=== PATIENT | female | born 1940 | race Caucasian/White ===

== ENCOUNTER 2018-03-27 02:03 | Emergency (ER) | payer OTHER ==
[2018-03-27] MEDS ORDERED: NA CHLORIDE 0.9% 1,000 ML ONE ×2 (02:41→02:42)
[2018-03-27] MEDS ORDERED: ASPIRIN EC 81 MG TAB PO ONE ×2 (02:41→02:55)
--- NOTE | 2018-03-27 02:53 | EDPHYS ---
Physician Documentation [facility] Name: Jeanne Richter Age: 77 yrs Sex: Female : 1940 Arrival Date: 03/27/2018 Time: 02:04 Bed 8 Private MD: ED Physician Noble Vega HPI: 03/27 02:48 This 77 yrs old Female presents to ER via Ambulatory with complaints of Chest michela Pain. 02:48 The patient or guardian reports chest pain that is located primarily in the substernal michela area, anterior chest wall. Onset: 2 day(s) ago. The pain radiates to chest. Associated signs and symptoms: The patient has no apparent associated signs or symptoms. The chest pain is described as a heaviness, causing indigestion, a pressure. Modifying factors: The symptoms are alleviated by nothing. the symptoms are aggravated by nothing. Severity of pain: At its worst the pain was mild moderate in the emergency department the pain is unchanged. The patient has not experienced similar symptoms in the past. Historical: - Allergies: 02:10 No Known Allergies; bp - Home Meds: 02:10 Synthroid Oral [Active]; Prilosec Oral [Active]; Celebrex Oral [Active]; Colace oral bp oral [Active]; - PMHx: 02:10 Hypothyroidism; bp - Immunization history:: Adult Immunizations up to date. - Social history:: Smoking status: . - Ebola Screening: : Patient negative for fever greater than or equal to 101.5 degrees Fahrenheit, and additional compatible Ebola Virus Disease symptoms Patient denies exposure to infectious person Patient denies travel to an Ebola-affected area in the 21 days before illness onset No symptoms or risks identified at this time. ROS: 02:48 Constitutional: Negative for fever, chills, and weight loss, Eyes: Negative for injury, michela pain, redness, and discharge, ENT: Negative for injury, pain, and discharge, Neck: Negative for injury, pain, and swelling, Cardiovascular: Negative for chest pain, palpitations, and edema, Respiratory: Negative for shortness of breath, cough, wheezing, and pleuritic chest pain, Abdomen/GI: Negative for abdominal pain, nausea, vomiting, diarrhea, and constipation, Back: Negative for injury and pain, : Negative for injury, bleeding, discharge, and swelling, MS/Extremity: Negative for injury and deformity, Skin: Negative for injury, rash, and discoloration, Neuro: Negative for headache, weakness, numbness, tingling, and seizure, Psych: Negative for depression, anxiety, suicide ideation, homicidal ideation, and hallucinations, Allergy/Immunology: Negative for hives, rash, and allergies, Endocrine: Negative for neck swelling, polydipsia, polyuria, polyphagia, and marked weight changes, Hematologic/Lymphatic: Negative for swollen nodes, abnormal bleeding, and unusual bruising. Exam: 02:56 Constitutional: This is a well developed, well nourished patient who is awake, alert, michela and in no acute distress. Head/Face: Normocephalic, atraumatic. Eyes: Pupils equal round and reactive to light, extra-ocular motions intact. Lids and lashes normal. Conjunctiva and sclera are non-icteric and not injected. Cornea within normal limits. Periorbital areas with no swelling, redness, or edema. ENT: Nares patent. No nasal discharge, no septal abnormalities noted. Tympanic membranes are normal and external auditory canals are clear. Oropharynx with no redness, swelling, or masses, exudates, or evidence of obstruction, uvula midline. Mucous membranes moist. Neck: Trachea midline, no thyromegaly or masses palpated, and no cervical lymphadenopathy. Supple, full range of motion without nuchal rigidity, or vertebral point tenderness. No Meningismus. Chest/axilla: Normal chest wall appearance and motion. Nontender with no deformity. No lesions are appreciated. Cardiovascular: Regular rate and rhythm with a normal S1 and S2. No gallops, murmurs, or rubs. Normal PMI, no JVD. No pulse deficits. Respiratory: Lungs have equal breath sounds bilaterally, clear to auscultation and percussion. No rales, rhonchi or wheezes noted. No increased work of breathing, no retractions or nasal flaring. Abdomen/GI: Soft, non-tender, with normal bowel sounds. No distension or tympany. No guarding or rebound. No evidence of tenderness throughout. Back: No spinal tenderness. No costovertebral tenderness. Full range of motion. Female : Normal external genitalia. Skin: Warm, dry with normal turgor. Normal color with no rashes, no lesions, and no evidence of cellulitis. MS/ Extremity: Pulses equal, no cyanosis. Neurovascular intact. Full, normal range of motion. Neuro: Awake and alert, GCS 15, oriented to person, place, time, and situation. Cranial nerves II-XII grossly intact. Motor strength 5/5 in all extremities. Sensory grossly intact. Cerebellar exam normal. Normal gait. Psych: Awake, alert, with orientation to person, place and time. Behavior, mood, and affect are within normal limits. Vital Signs: 02:12 BP 164 / 102; Pulse 79; Resp 18; Temp 97.8; Pulse Ox 95% ; Weight 77.11 kg; Height 5 bp ft. 4 in. (162.56 cm); 02:47 BP 173 / 104; Pulse 84; Resp 15; Pulse Ox 97% on R/A; rv 03:15 BP 154 / 79; Pulse 68; Resp 16; Pulse Ox 95% ; rv 04:09 BP 158 / 84; Pulse 83; Resp 20; Pulse Ox 96% ; bp 05:06 BP 158 / 83; Pulse 79; Resp 16; Pulse Ox 96% on R/A; rv 02:12 Body Mass Index 29.18 (77.11 kg, 162.56 cm) bp MDM: 02:19 Patient medically screened. [facility] 02:51 Data reviewed: vital signs, nurses notes, lab test result(s), EKG, radiologic studies, [facility] CT scan, doppler. 03/27 02:20 Order name: Basic Metabolic Panel; Complete Time: 04:13 bp 03/27 02:20 Order name: BNP; Complete Time: 03:38 bp 03/27 02:20 Order name: CBC with Diff; Complete Time: 03:38 bp 03/27 02:20 Order name: Ckmb; Complete Time: 04:13 bp 03/27 02:20 Order name: CPK; Complete Time: 04:13 bp 0607 02:20 Order name: LFT's; Complete Time: 04:13 bp 03/27 02:20 Order name: Magnesium; Complete Time: 04:13 bp 03/27 02:20 Order name: PT-INR; Complete Time: 03:38 bp 03/27 02:20 Order name: Ptt, Activated; Complete Time: 03:38 bp 03/27 02:20 Order name: Troponin (emerg Dept Use Only); Complete Time: 03:38 bp 03/27 02:20 Order name: Basic Metabolic Panel 03/27 02:20 Order name: BNP 03/27 02:20 Order name: CBC with Diff 03/27 02:20 Order name: Ckmb 03/27 02:20 Order name: CPK 03/27 02:20 Order name: LFT's 03/27 02:20 Order name: Magnesium 03/27 02:20 Order name: PT-INR 03/27 02:20 Order name: Ptt, Activated 03/27 02:20 Order name: Troponin (emerg Dept Use Only) 03/27 02:20 Order name: XRAY Chest (1 view) 03/27 02:20 Order name: Lipase; Complete Time: 04:13 michela 03/27 02:20 Order name: TSH; Complete Time: 04:13 michela 03/27 03:21 Order name: Urine Dipstick--Ancillary (enter results) ms 03/27 03:25 Order name: Urine Dipstick-Ancillary; Complete Time: 03:38 EDMS 03/27 02:20 Order name: Cardiac monitoring; Complete Time: 02:37 bp 03/27 02:20 Order name: EKG - Nurse/Tech; Complete Time: 02:37 bp 07 02:20 Order name: IV Saline Lock; Complete Time: 02:37 bp 07 02:20 Order name: Labs collected and sent; Complete Time: 02:37 bp 07 02:20 Order name: O2 Per Protocol; Complete Time: 02:38 bp 07 02:20 Order name: O2 Sat Monitoring; Complete Time: 02:38 bp 07 02:20 Order name: Urine Dipstick-Ancillary (obtain specimen); Complete Time: 04:08 bp 07 02:20 Order name: EKG; Complete Time: 02:21 michela 03/27 02:20 Order name: Cardiac monitoring; Complete Time: 02:38 michela 03/27 02:20 Order name: EKG - Nurse/Tech; Complete Time: 02:38 michela 03/27 02:20 Order name: IV Saline Lock; Complete Time: 02:38 michela 03/27 02:20 Order name: Labs collected and sent; Complete Time: 02:38 michela 03/27 02:20 Order name: O2 Per Protocol; Complete Time: 02:38 michela 03/27 02:20 Order name: O2 Sat Monitoring; Complete Time: 02:38 michela 03/27 02:20 Order name: Urine Dipstick-Ancillary (obtain specimen); Complete Time: 04:08 michela 03/27 02:47 Order name: Bilateral blood pressure; Complete Time: 02:49 [facility] 03/27 02:56 Order name: CONS Physician Consult EDMS 03/27 04:04 Order name: EKG; Complete Time: 04:05 michela 03/27 04:04 Order name: EKG - Nurse/Tech; Complete Time: 04:54 michela Administered Medications: Discontinued: NS 0.9% 1000 ml IV at 125 ml/hr continuous 02:43 Drug: NS 0.9% 1000 ml Route: IV; Rate: 125 ml/hr; Site: left antecubital; rv 03:25 Follow up: IV Status: Infusion continued upon admission rv 05:05 Follow up: IV Status: Infusion continued upon transfer rv 02:46 Drug: Aspirin Chewable Tablet 162 mg Route: PO; rv 03:24 Follow up: Response: No adverse reaction rv 03:10 Drug: Aspirin 162 mg Route: PO; rv 04:56 Follow up: Response: No adverse reaction bp 03:10 Drug: Heparin (DE-Bolus No thrombolytic) - HEParin 60 units/kg {Co-Signature: bp (Edward Sanches RN).} Route: IVP; Site: left antecubital; 04:56 Follow up: Response: No adverse reaction bp 03:10 Drug: Heparin (DE Drip) 12 units/kg/hr - (HEParin 43120 units, D5W 500 ml) rv {Co-Signature: bp (Edward Sanches RN).} Route: IV; Rate: calculated rate; Site: left antecubital; 04:54 Follow up: IV Status: Infusion continued upon transfer bp 03:22 Drug: PlaVIX 300 mg Route: PO; rv 04:54 Follow up: Response: No adverse reaction bp 03:22 Drug: Lopressor 5 mg Route: IVP; Site: left antecubital; rv 04:54 Follow up: Response: No adverse reaction bp 03:23 Drug: morphine 2 mg Route: IVP; Site: left antecubital; rv 04:55 Follow up: Response: No adverse reaction bp 03:23 Drug: Zofran 4 mg Route: IVP; Site: left antecubital; rv 04:55 Follow up: Response: No adverse reaction bp 03:51 Drug: PlaVIX 300 mg Route: PO; rv 04:53 Follow up: Response: No adverse reaction bp 04:00 Drug: morphine 2 mg Route: IVP; Site: left antecubital; rv 04:30 Drug: NS 0.9% with KCl 20 mEq/L 1000 ml Route: IV; Rate: 100 ml/hr; Site: left rv antecubital; 04:30 Drug: morphine 2 mg Route: IVP; Site: left antecubital; rv 05:02 Follow up: Response: No adverse reaction rv 04:30 Drug: Zofran 4 mg Route: IVP; Site: left antecubital; rv 05:01 Follow up: Response: No adverse reaction rv 04:59 Drug: ProTONIX 40 mg Route: IVP; Site: left antecubital; rv 05:01 Follow up: Response: No adverse reaction rv Disposition: 03/27/18 03:[address] [facility]. Diagnosis are Chest pain, unspecified, Non-ST elevation (NSTEMI) myocardial infarction, Essential (primary) hypertension, Hypokalemia. - Reason for transfer: Higher level of care. - Accepting physician is to cardiology [facility]. - Condition is Fair. - Problem is new. - Symptoms have improved. Signatures: Dispatcher [employer] ED[facility] Alice Velez RN RN mw Anderson, Corey, MD MD cha Peltier, Brian, NADER RN Mamadou Parikh RN RN rv Edward Sanches RN bp Corrections: (The following items were deleted from the chart) 02:22 02:21 Chest Single View+RAD.RAD.BRZ ordered. [facility] 02:56 02:52 Hospitalization Ordered by Christian Norton MD for Inpatient Admission. Preliminary gina diagnosis is Chest pain, unspecified; Essential (primary) hypertension. Bed requested for Telemetry/MedSurg (Inpatient). Status is Inpatient Admission. Condition is Stable. Problem is new. Symptoms have improved. UTI on Admission? No. michela 03:41 02:56 03/27/2018 02:52 Hospitalization Ordered by Christian Norton MD for Inpatient michela Admission. Preliminary diagnosis is Chest pain, unspecified; Essential (primary) hypertension. Bed requested for Telemetry/MedSurg (Inpatient). Status is Inpatient Admission. Condition is Stable. Problem is new. Symptoms have improved. UTI on Admission? No. mw 05:09 03:45 03/27/2018 03:[address] [facility]. Diagnosis is rv Chest pain, unspecified; Non-ST elevation (NSTEMI) myocardial infarction; Essential (primary) hypertension; Hypokalemia. Reason for transfer: Higher level of care. Accepting physician is to cardiology [facility]. Condition is Fair. Problem is new. Symptoms have improved. michela
--- NOTE | 2018-03-27 02:53 | ER ---
Nurse's Notes [facility] Name: Jeanne Richter Age: 77 yrs Sex: Female : 1940 Arrival Date: 03/27/2018 Time: 02:04 Bed 8 Private MD: Diagnosis: Chest pain, unspecified;Non-ST elevation (NSTEMI) myocardial infarction;Essential (primary) hypertension;Hypokalemia Presentation: 03/27 02:08 Presenting complaint: Patient states: I'VE HAD CHEST PAINS FOR THREE OR FOUR HOURS. bp Transition of care: patient was not received from another setting of care. Onset of symptoms was March 26, 2018 at 22:00. Risk Assessment: Do you want to hurt yourself or someone else? Patient reports no desire to harm self or others. Initial Sepsis Screen: Does the patient meet any 2 criteria? No. Patient's initial sepsis screen is negative. Does the patient have a suspected source of infection? No. Patient's initial sepsis screen is negative. Care prior to arrival: None. 02:08 Method Of Arrival: Ambulatory bp 02:08 Acuity: MAGNOLIA 2 bp Triage Assessment: 02:10 General: Appears distressed, comfortable, Behavior is cooperative, appropriate for age, bp anxious. Pain: Complains of pain in chest. EENT: No deficits noted. Neuro: Level of Consciousness is awake, alert, obeys commands, Oriented to person, place, time, situation, Appropriate for age. Cardiovascular: Chest pain is described as severe, quality is crushing, is located in substernal area radiates to bilateral arm(s) began 3 hours prior to arrival. Respiratory: Airway is patent Respiratory effort is even, unlabored, Respiratory pattern is regular, symmetrical. GI: No signs and/or symptoms were reported involving the gastrointestinal system. : No signs and/or symptoms were reported regarding the genitourinary system. Derm: No deficits noted. Musculoskeletal: Circulation, motion, and sensation intact. Range of motion: intact in all extremities. Historical: - Allergies: 02:10 No Known Allergies; bp - Home Meds: 02:10 Synthroid Oral [Active]; Prilosec Oral [Active]; Celebrex Oral [Active]; Colace oral bp oral [Active]; - PMHx: 02:10 Hypothyroidism; bp - Immunization history:: Adult Immunizations up to date. - Social history:: Smoking status: . - Ebola Screening: : Patient negative for fever greater than or equal to 101.5 degrees Fahrenheit, and additional compatible Ebola Virus Disease symptoms Patient denies exposure to infectious person Patient denies travel to an Ebola-affected area in the 21 days before illness onset No symptoms or risks identified at this time. Screenin:13 Abuse screen: Denies threats or abuse. Denies injuries from another. Nutritional bp screening: No deficits noted. Tuberculosis screening: No symptoms or risk factors identified. Fall Risk None identified. Assessment: 02:13 General: 77YO WF P/W SUBSTERNAL "CRUSHING" CP RADIATING TO BUE x3-4 HR. PT DENIES bp CARDIAC HX, STATING UNREMARKABLE CARDIAC W/U 1 YEAR AGO. Pain: Pain radiates to right arm and left arm Pain began 4 hours ago. 03:00 Reassessment: ADMIT IN PROCESS, FURTHER RESULTS PENDING. PT CP FREE AT THIS TIME. bp 04:00 Reassessment: ADMIT CANCELLED, [facility] TRANSFER IN PROCESS. bp Vital Signs: 02:12 BP 164 / 102; Pulse 79; Resp 18; Temp 97.8; Pulse Ox 95% ; Weight 77.11 kg; Height 5 bp ft. 4 in. (162.56 cm); 02:47 BP 173 / 104; Pulse 84; Resp 15; Pulse Ox 97% on R/A; rv 03:15 BP 154 / 79; Pulse 68; Resp 16; Pulse Ox 95% ; rv 04:09 BP 158 / 84; Pulse 83; Resp 20; Pulse Ox 96% ; bp 05:06 BP 158 / 83; Pulse 79; Resp 16; Pulse Ox 96% on R/A; rv 02:12 Body Mass Index 29.18 (77.11 kg, 162.56 cm) bp ED Course: 02:04 Patient arrived in ED. es 02:08 Edward Sanches, RN is Primary Nurse. bp 02:09 Triage completed. bp 02:12 Arm band placed on. bp 02:13 Patient has correct armband on for positive identification. Bed in low position. Call bp light in reach. Side rails up X2. Adult w/ patient. media monitor on. Pulse ox on. NIBP on. 02:19 Noble Vega MD is Attending Physician. michela 02:30 X-ray completed. Portable x-ray completed in exam room. Patient tolerated procedure kw well. 02:31 XRAY Chest (1 view) In Process Unspecified. EDMS 02:38 Inserted saline lock: 22 gauge in left antecubital area, using aseptic technique. Blood rv collected. 02:39 Basic Metabolic Panel Sent. rv 02:39 BNP Sent. rv 02:39 CBC with Diff Sent. rv 02:39 Ckmb Sent. rv 02:39 CPK Sent. rv 02:39 LFT's Sent. rv 02:39 Magnesium Sent. rv 02:39 PT-INR Sent. rv 02:40 Ptt, Activated Sent. rv 02:40 Troponin (emerg Dept Use Only) Sent. rv 02:52 Christian Norton MD is Hospitalizing Provider. michela 03:29 No provider procedures requiring assistance completed. Patient admitted, IV remains in rv place. Patient maintains SpO2 saturation greater than 95% on room air. 04:08 Urine Dipstick--Ancillary (enter results) Sent. bp Administered Medications: Discontinued: NS 0.9% 1000 ml IV at 125 ml/hr continuous 02:43 Drug: NS 0.9% 1000 ml Route: IV; Rate: 125 ml/hr; Site: left antecubital; rv 03:25 Follow up: IV Status: Infusion continued upon admission rv 05:05 Follow up: IV Status: Infusion continued upon transfer rv 02:46 Drug: Aspirin Chewable Tablet 162 mg Route: PO; rv 03:24 Follow up: Response: No adverse reaction rv 03:10 Drug: Aspirin 162 mg Route: PO; rv 04:56 Follow up: Response: No adverse reaction bp 03:10 Drug: Heparin (OR-Bolus No thrombolytic) - HEParin 60 units/kg {Co-Signature: bp (Edward Sanches RN).} Route: IVP; Site: left antecubital; 04:56 Follow up: Response: No adverse reaction bp 03:10 Drug: Heparin (OR Drip) 12 units/kg/hr - (HEParin 67615 units, D5W 500 ml) rv {Co-Signature: bp (Edward Sanches RN).} Route: IV; Rate: calculated rate; Site: left antecubital; 04:54 Follow up: IV Status: Infusion continued upon transfer bp 03:22 Drug: PlaVIX 300 mg Route: PO; rv 04:54 Follow up: Response: No adverse reaction bp 03:22 Drug: Lopressor 5 mg Route: IVP; Site: left antecubital; rv 04:54 Follow up: Response: No adverse reaction bp 03:23 Drug: morphine 2 mg Route: IVP; Site: left antecubital; rv 04:55 Follow up: Response: No adverse reaction bp 03:23 Drug: Zofran 4 mg Route: IVP; Site: left antecubital; rv 04:55 Follow up: Response: No adverse reaction bp 03:51 Drug: PlaVIX 300 mg Route: PO; rv 04:53 Follow up: Response: No adverse reaction bp 04:00 Drug: morphine 2 mg Route: IVP; Site: left antecubital; rv 04:30 Drug: NS 0.9% with KCl 20 mEq/L 1000 ml Route: IV; Rate: 100 ml/hr; Site: left rv antecubital; 04:30 Drug: morphine 2 mg Route: IVP; Site: left antecubital; rv 05:02 Follow up: Response: No adverse reaction rv 04:30 Drug: Zofran 4 mg Route: IVP; Site: left antecubital; rv 05:01 Follow up: Response: No adverse reaction rv 04:59 Drug: ProTONIX 40 mg Route: IVP; Site: left antecubital; rv 05:01 Follow up: Response: No adverse reaction rv Outcome: 02:52 Decision to Hospitalize by Provider. michela 03:30 Condition: stable rv 03:30 Instructed on the need for admit. 03:45 ER care complete, transfer ordered by . michela 05:08 Transferred by ground EMS to [facility], Transfer form completed. rv 05:09 Patient left the ED. rv Signatures: Dispatcher [employer] Noble Carrillo MD MD cha Salyer, Edna es Whitley, Kimberlee kw Peltier, Brian RN RN bp Mamadou Diaz RN RN rv Edward Sanches RN bp
[2018-03-27] MEDS ORDERED: METOPROLOL TAR 50 MG TAB ONE (02:54)
[2018-03-27] MEDS ORDERED: CLOPIDOGREL 75 MG TABLET ONE ×2 (02:55→03:49)
[2018-03-27] MEDS ORDERED: MORPHINE 4 MG/ML SYR ONE (02:55)
[2018-03-27] MEDS ORDERED: HEPARIN/D5W 25,000 UNIT/500 ML BAG IV ONE (02:56)
[2018-03-27] MEDS ORDERED: METOPROLOL TARTRATE 5 MG/5 ML INJ IV ONE ×2 (02:56→03:20)
[2018-03-27] MEDS ORDERED: ONDANSETRON 4 MG/2 ML VIAL ONE ×2 (02:56→04:35)
[2018-03-27] MEDS ORDERED: HEPARIN 5000 UNIT/ML 1 ML VIAL ONE (02:57)
[2018-03-27 03:11] LABS: Absolute Lymphocytes (CBC) 0.7 K/uL (0.7-4.9); Absolute Monocytes 0.5 K/uL (0.1-1.3); Absolute Neutrophil 6.3 K/uL (1.8-8.0); Basophils % 1.4 % (0-1.3); Eosinophils % 1.5 % (0-4.4); Hematocrit 40.9 % (36.0-45.0); Lymphocytes % 8.9 % (15.3-44.8); MCH 28.7 pg (27.0-35.0); MCV 85.4 fL (80-100); MPV 9.1 fL (7.6-11.3); Monocytes % 5.9 % (3.3-12.3); RBC Red Blood Cell Count 4.79 M/uL (3.86-4.86)
[2018-03-27 03:13] LABS: Protime INR 0.94
[2018-03-27 03:24] LABS: Bicarbonate 27 mEq/L (21-31); Glucose Level 143 mg/dL (65-120); Lipase 23 U/L (22-51); Potassium 3.4 mEq/L (3.6-5.0); Sodium Level 136 mEq/L (135-145)
[2018-03-27 03:25] LABS: Urine Blood 1+ (NEG); Urine Glucose NEGATIVE (NEG); Urine Protein 1+ (NEG); Urine pH 7.5 (5.0-7.0)
[2018-03-27 03:31] LABS: ALT/SGPT 20 IU/L (10-60); AST/SGOT 29 IU/L (10-42); Alkaline Phosphatase 67 IU/L (42-121); BUN Blood Urea Nitrogen 18 mg/dL (6-20); Bilirubin Direct 0.1 mg/dL (0-0.2); Bilirubin Total 0.6 mg/dL (0.3-1.2); Creatine Phosphokinase 155 IU/L (22-269); Protein, Total 7.2 g/dL (6.0-8.3)
[2018-03-27 03:55] LABS: Thyroid Stimulating Hormone 1.21 uIU/mL (0.34-5.60)
[2018-03-27] MEDS ORDERED: KCL 20 MEQ/100 mL IVPB 0 MEQ/0 ML BAG IV ONE (03:55)
[2018-03-27] MEDS ORDERED: NS KCL 20MEQ 1,000 ML IV ONE (03:58)
[2018-03-27 04:00] LABS: CKMB Creatine Kinase MB 15.6 ng/ml (0.3-4.0)
[2018-03-27] MEDS ORDERED: PANTOPRAZOLE 40 MG INJ ONE (04:33)
--- NOTE | 2018-03-27 08:59 | RAD REPORT ---
EXAM DESCRIPTION: RAD - Chest Single View - 03/27/2018 2:33 am CLINICAL HISTORY: Chest pain, lung cancer history COMPARISON: November 2008 TECHNIQUE: AP portable chest image was obtained 0221 hours . FINDINGS: Lungs are fibrotic as a baseline. Postsurgical changes are present in the right hilum tong on and along the right paratracheal region. The baseline interstitial pattern is increased over emily rison. Right hemidiaphragm is more obscured and shaggy in appearance compared to the prior study. Upp er lobe vasculature within normal limits. Heart size within normal limits for portable imaging. Trach ea is midline. No pneumothorax. No large left-sided pleural effusion. No gross bony abnormality seen. No acute aortic findings suspected. IMPRESSION: Patient has chronic interstitial lung disease slightly increased in the lower lung field s since 2008. This could be progressive fibrosis or a superimposed interstitial edema or infiltrate. Shaggy appearance to the right hemidiaphragm and base could be scarring, pleural effusion or early in filtrative process. Spiculated mass density at the right hilum appears to been present back in 2008. This could be scarri ng from prior surgery. This is more conspicuous on the current examination 2 2 rotation over the righ t lung field. If not already recently performed, CT imaging could be obtained to assure no new or progressive findi ng.
--- NOTE | 2018-03-28 07:24 | EKG ---
Test Date: 2018-03-27 Test Time: 02:32:02 Resaw Feeder: MEASUREMENT RESULTS: Intervals: Rate: 87 ID: [id number] QRSD: 98 QT: 400 QTc: 481 [place]: P: 71 ID: [id number] QRS: 54 T: 76 INTERPRETIVE STATEMENTS: Normal sinus rhythm with sinus arrhythmia Incomplete right bundle branch block Borderline ECG No previous ECG available for comparison Electronically Signed On 03-28-18 07:20:06 CDT by Dima Vigil
--- NOTE | 2018-03-28 07:24 | EKG ---
Test Date: 2018-03-27 Test Time: 04:10:52 Picking Crew Supervisor: MEASUREMENT RESULTS: Intervals: Rate: 78 TX: 162 QRSD: 98 QT: 418 QTc: 476 [place]: P: 73 TX: 162 QRS: 51 T: 81 INTERPRETIVE STATEMENTS: Normal sinus rhythm with sinus arrhythmia Incomplete right bundle branch block Nonspecific T wave abnormality Prolonged QT Abnormal ECG Compared to ECG 03/27/2018 02:32:02 T-wave abnormality now present Prolonged QT interval now present Electronically Signed On 03-28-18 07:20:04 CDT by Dima Vigil
== END 2018-03-27 05:09 | disposition short-term general hospital (02) ==
LOC: ER 02:03 → ERHOLD 02:53 → UNDOADMIN 02:53 → ER 05:09
DX: I21.4 Non-ST elevation (NSTEMI) myocardial infarction (principal); I10 Essential (primary) hypertension; E87.6 Hypokalemia; E03.9 Hypothyroidism, unspecified
CPT/HCPCS: 36415; 71045; 80048; 80076; 81003; 82550; 82553; 83690; 83735; 83880; 84443; 84484; 85025; 85610; 85730; 93005 ×2; 96365; 96366; 96375; 99285; C9113; J1644; J2405 ×2; J7030 ×2; 96361

== ENCOUNTER 2019-05-24 08:00 | Emergency (ER) | payer OTHER ==
[2019-05-24] MEDS ORDERED: ONDANSETRON 4 MG/2 ML VIAL ONE (08:18)
[2019-05-24] MEDS ORDERED: NA CHLORIDE 0.9% 1,000 ML ONE (08:18)
[2019-05-24 08:41] LABS: Absolute Lymphocytes (CBC) 0.7 K/uL (0.7-4.9); Hematocrit 39.6 % (36.0-45.0); Lymphocytes % 12.2 % (15.3-44.8); MPV 8.3 fL (7.6-11.3); RBC Red Blood Cell Count 4.66 M/uL (3.86-4.86)
[2019-05-24 08:55] LABS: Albumin 3.6 g/dL (3.4-5.0); Bilirubin Direct 0.2 mg/dL (0-0.2); Bilirubin Total 0.6 mg/dL (0.2-1.0); Potassium 3.9 mmol/L (3.5-5.1); Protein, Total 7.8 g/dL (6.4-8.2)
[2019-05-24 08:58] LABS: Urine Bacteria <20 /HPF (<20); Urine Culture Reflex Order NOT NEEDED; Urine Mucus MOD /HPF (NONE SEEN)
[2019-05-24 08:59] LABS: Urine Blood 2+ (NEG); Urine Glucose NEGATIVE (NEG); Urine Protein 2+ (NEG); Urine Specific Gravity 1.025 (1.005-1.030)
--- NOTE | 2019-05-24 11:26 | ER ---
Nurse's Notes [facility] Name: Jeanne Richter Age: 79 yrs Sex: Female : 1940 Arrival Date: 05/24/2019 Time: 08:02 Bed 20 Private MD: Diagnosis: Ileitis;Nausea and vomiting;Malignant pleural effusion Presentation: 05/24 08:10 Presenting complaint: Patient states: upper abd pain that started this morning after em reaching up to grab something, reports nausea and having a BM this morning, denies fever. Transition of care: patient was not received from another setting of care. Onset of symptoms was May 24, 2019. Risk Assessment: Do you want to hurt yourself or someone else? Patient reports no desire to harm self or others. Initial Sepsis Screen: Does the patient meet any 2 criteria? No. Patient's initial sepsis screen is negative. Does the patient have a suspected source of infection? No. Patient's initial sepsis screen is negative. Care prior to arrival: None. 08:10 Method Of Arrival: Wheelchair em 08:11 Acuity: MAGNOLIA 2 sg Historical: - Allergies: 08:25 aprepitant; em - Home Meds: 08:25 Protonix 20 mg Oral TbEC 1 tab once daily [Active]; levothyroxine 100 mcg tab 1 tab em once daily [Active]; aspirin 81 mg Oral chew 1 tab once daily [Active]; Plavix 75 mg Oral tab 1 tab once daily [Active]; nitroglycerin 0.4 mg Oral [Active]; atorvastatin 40 mg oral tab 1 tab once daily [Active]; - PMHx: 08:16 Hypothyroidism; thyroid CA; lung CA; em - PSHx: 08:16 Lobectomy; em 08:18 cardiac stents; em - Immunization history:: Adult Immunizations up to date. - Social history:: Smoking status: Patient/guardian denies using tobacco. - Ebola Screening: : Patient negative for fever greater than or equal to 101.5 degrees Fahrenheit, and additional compatible Ebola Virus Disease symptoms Patient denies exposure to infectious person Patient denies travel to an Ebola-affected area in the 21 days before illness onset No symptoms or risks identified at this time. - Family history:: not pertinent. - Hospitalizations: : No recent hospitalization is reported. Screenin:16 Abuse screen: Denies threats or abuse. Nutritional screening: No deficits noted. em Tuberculosis screening: No symptoms or risk factors identified. Fall Risk None identified. Assessment: 08:16 General: Appears in no apparent distress. uncomfortable, Behavior is calm, cooperative, em Denies fever. Pain: Complains of pain in abdomen Pain currently is 4 out of 10 on a pain scale. Neuro: Level of Consciousness is awake, alert, obeys commands, Oriented to person, place, time, situation, Denies dizziness, headache. Cardiovascular: Denies chest pain, Capillary refill < 3 seconds Patient's skin is warm and dry. Chest pain is denied. Respiratory: Airway is patent Respiratory effort is even, unlabored, Respiratory pattern is regular, symmetrical. GI: Abdomen is round distended, Bowel sounds present X 4 quads. Abd is soft X 4 quads Abdomen is tender to palpation X 4 quads. Reports nausea, Patient currently denies vomiting. : Denies burning with urination. Derm: Skin is intact, is thin, Skin is pink, warm \T\ dry. Musculoskeletal: Capillary refill < 3 seconds, Range of motion: intact in all extremities. 09:10 Reassessment: Patient appears in no apparent distress at this time. finished drinking em PO contrast, tolerated well, CT dept. notified. 09:39 Reassessment: Patient appears in no apparent distress at this time. Patient and/or em family updated on plan of care and expected duration. Pain level reassessed. Patient is alert, oriented x 3, equal unlabored respirations, skin warm/dry/pink. 10:24 Reassessment: Patient appears in no apparent distress at this time. pt wheeled to CT em via wheelchair, denies pain at this time. 11:24 Reassessment: Patient appears in no apparent distress at this time. Patient and/or em family updated on plan of care and expected duration. Pain level reassessed. Patient is alert, oriented x 3, equal unlabored respirations, skin warm/dry/pink. Patient denies pain at this time. Patient states feeling better. Patient states symptoms have improved. Vital Signs: 08:16 BP 200 / 93; Pulse 82; Resp 18; Temp 97.2; Pulse Ox 99% on R/A; Weight 67.13 kg; Height em 5 ft. 4 in. (162.56 cm); Pain 410; 08:52 BP 175 / 70; Pulse 84; Resp 20; Pulse Ox 98% on R/A; em 09:40 BP 165 / 83; Pulse 78; Resp 18; Pulse Ox 99% on R/A; em 11:24 BP 123 / 71; Pulse 77; Resp 18; Pulse Ox 95% on R/A; Pain 0/10; em 08:16 Body Mass Index 25.40 (67.13 kg, 162.56 cm) em ED Course: 08:02 Patient arrived in ED. mr 08:03 Arthur Guzman MD is Attending Physician. rn 08:04 Thom Garcia LVN is Primary Nurse. em 08:12 Triage completed. sg 08:16 Arm band placed on. em 08:16 Patient has correct armband on for positive identification. Placed in gown. Bed in low em position. Call light in reach. Side rails up X2. Adult w/ patient. campus monitor on. Pulse ox on. NIBP on. 08:16 Inserted saline lock: 22 gauge in left antecubital area, using aseptic technique. Blood em collected. 10:44 CT Abd/Pelvis - PO and IV Contrast In Process Unspecified. EDMS 11:40 No provider procedures requiring assistance completed. IV discontinued, intact, em bleeding controlled, No redness/swelling at site. Pressure dressing applied. Administered Medications: 08:25 Drug: NS 0.9% 500 ml Route: IV; Rate: bolus; Site: right antecubital; sg 08:34 Follow up: IV SiteChange: left antecubital; IV SiteChange Reason: Infiltration sg 11:46 Follow up: IV Status: Completed infusion; IV Intake: 500ml em 08:26 Drug: Zofran 4 mg Route: IVP; Site: right antecubital; sg 09:00 Follow up: Response: No adverse reaction; Nausea is decreased em Intake: 11:46 IV: 500ml; Total: 500ml. em Outcome: 11:25 Discharge ordered by . rn 11:40 Discharged to home ambulatory, with family. em 11:40 Condition: good 11:40 Discharge instructions given to patient, family, Instructed on discharge instructions, follow up and referral plans. medication usage, Demonstrated understanding of instructions, follow-up care, medications, Prescriptions given X 3. 11:47 Patient left the ED. em Signatures: Dispatcher [employer] EDMS Manuel Sierraen, RN RN Bush Lorna mr Jose, Thom, MANAGER OPERATIONS MANAGER OPERATIONS em Arthur Guzman MD MD varnish finisher: (The following items were deleted from the chart) : 08:16 Allergies: No Known Allergies; em em 08:40 08:16 BP 200 / 93; Pulse 82bpm; Resp 18bpm; Pulse Ox 99% RA; em em 08 08:16 Neuro: Level of Consciousness is awake, alert, obeys commands, Oriented to em person, place, time, situation, em 08:51 08:16 Cardiovascular: Capillary refill < 3 seconds Patient's skin is warm and dry. em em
--- NOTE | 2019-05-24 11:26 | EDPHYS ---
Physician Documentation [facility] Name: Jeanne Richter Age: 79 yrs Sex: Female : 1940 Arrival Date: 05/24/2019 Time: 08:02 Bed 20 Private MD: ED Physician Arthur Guzman HPI: 05/24 08:17 This 79 yrs old Female presents to ER via Wheelchair with complaints of rn Abdominal Pain, Vomiting. 08:17 The patient presents to the emergency department with nausea, vomiting, abdominal pain. rn Onset: The symptoms/episode began/occurred this morning. Possible causes: unknown. The symptoms are aggravated by movement, pressure, The symptoms are alleviated by nothing. Severity of symptoms: At their worst the symptoms were moderate in the emergency department the symptoms have improved. The patient has experienced a previous episode. Reports sudden onset diffuse abd pain, began this AM, assoc with nausea, reports similar episode in past when had intestinal blockage. No diarrhea. No masses. No trauma.. Historical: - Allergies: 08:25 aprepitant; em - Home Meds: 08:25 Protonix 20 mg Oral TbEC 1 tab once daily [Active]; levothyroxine 100 mcg tab 1 tab em once daily [Active]; aspirin 81 mg Oral chew 1 tab once daily [Active]; Plavix 75 mg Oral tab 1 tab once daily [Active]; nitroglycerin 0.4 mg Oral [Active]; atorvastatin 40 mg oral tab 1 tab once daily [Active]; - PMHx: 08:16 Hypothyroidism; thyroid CA; lung CA; em - PSHx: 08:16 Lobectomy; em 08:18 cardiac stents; em - Immunization history:: Adult Immunizations up to date. - Social history:: Smoking status: Patient/guardian denies using tobacco. - Ebola Screening: : Patient negative for fever greater than or equal to 101.5 degrees Fahrenheit, and additional compatible Ebola Virus Disease symptoms Patient denies exposure to infectious person Patient denies travel to an Ebola-affected area in the 21 days before illness onset No symptoms or risks identified at this time. - Family history:: not pertinent. - Hospitalizations: : No recent hospitalization is reported. ROS: 08:17 Constitutional: Negative for fever, chills, and weight loss, Eyes: Negative for injury, rn pain, redness, and discharge, Neck: Negative for injury, pain, and swelling, Cardiovascular: Negative for chest pain, palpitations, and edema, Respiratory: Negative for shortness of breath, cough, wheezing, and pleuritic chest pain, Abdomen/GI: + abd pain and nausea MS/Extremity: Negative for injury and deformity, Skin: Negative for injury, rash, and discoloration, Neuro: Negative for headache, weakness, numbness, tingling, and seizure. Exam: 08:17 Constitutional: This is a well developed, well nourished patient who is awake, alert, rn and in no acute distress. Head/Face: Normocephalic, atraumatic. ENT: MMM Cardiovascular: Regular rate and rhythm. No pulse deficits. Respiratory: No increased work of breathing, no retractions or nasal flaring. Abdomen/GI: soft, tenderness in all 4 quadrants, no peritoneal signs, no distension MS/ Extremity: Pulses equal, no cyanosis. Neurovascular intact. Full, normal range of motion. Equal circumference. Neuro: Awake and alert, GCS 15, oriented to person, place, time, and situation. Cranial nerves II-XII grossly intact. Motor strength 5/5 in all extremities. Sensory grossly intact. Vital Signs: 08:16 BP 200 / 93; Pulse 82; Resp 18; Temp 97.2; Pulse Ox 99% on R/A; Weight 67.13 kg; Height em 5 ft. 4 in. (162.56 cm); Pain 4/10; 08:52 BP 175 / 70; Pulse 84; Resp 20; Pulse Ox 98% on R/A; em 09:40 BP 165 / 83; Pulse 78; Resp 18; Pulse Ox 99% on R/A; em 11:24 BP 123 / 71; Pulse 77; Resp 18; Pulse Ox 95% on R/A; Pain 0/10; em 08:16 Body Mass Index 25.40 (67.13 kg, 162.56 cm) em MDM: 08:03 Patient medically screened. rn 11:22 Differential diagnosis: Nonspecific abd pain, gastritis, viral gastroenteritis, rn gastroenteritis. Data reviewed: vital signs, nurses notes, lab test result(s), radiologic studies, CT scan, and as a result, I will discharge patient. Counseling: I had a detailed discussion with the patient and/or guardian regarding: the historical points, exam findings, and any diagnostic results supporting the discharge/admit diagnosis, lab results, radiology results, the need for outpatient follow up, to return to the emergency department if symptoms worsen or persist or if there are any questions or concerns that arise at home. Special discussion: I discussed with the patient/guardian in detail that at this point there is no indication for admission to the hospital. It is understood, however, that if the symptoms persist or worsen the patient needs to return immediately for re-evaluation. Based on the history and exam findings, there is no indication for further emergent testing or inpatient evaluation. I discussed with the patient/guardian the need to see the primary care provider for further evaluation of the symptoms. ED course: Patient reports feels much better, no pain, no nausea. CT shows possible ileitis, + known right lung masses, is in clinical trial for metastatic thyroid cancer and has had lobectomies in past. CXR cancelled due to known findings. Will dc home with bactrim, zofran prn, and pain meds prn.. 05/24 08:17 Order name: Basic Metabolic Panel; Complete Time: 09: rn 05/24 08:17 Order name: CBC with Diff; Complete Time: 08:49 rn 05/24 08:17 Order name: Hepatic Function; Complete Time: 09: rn 05/24 08:17 Order name: Lipase; Complete Time: 09: rn 05/24 08:17 Order name: Urine Microscopic Only; Complete Time: 09: rn 05/24 08:41 Order name: Urine Dipstick--Ancillary (enter results); Complete Time: 09: bd 05/24 08:17 Order name: IV Saline Lock; Complete Time: 08:25 rn 05/24 08:17 Order name: Labs collected and sent; Complete Time: 08:25 rn 05/24 08:17 Order name: CT Abd/Pelvis - PO and IV Contrast rn 05/24 08:17 Order name: Urine Dipstick-Ancillary (obtain specimen); Complete Time: 08:25 rn Administered Medications: 08:25 Drug: NS 0.9% 500 ml Route: IV; Rate: bolus; Site: right antecubital; sg 08:34 Follow up: IV SiteChange: left antecubital; IV SiteChange Reason: Infiltration sg 11:46 Follow up: IV Status: Completed infusion; IV Intake: 500ml em 08:26 Drug: Zofran 4 mg Route: IVP; Site: right antecubital; sg 09:00 Follow up: Response: No adverse reaction; Nausea is decreased em Disposition: 05/24/19 11:25 Discharged to Home. Impression: Ileitis, Nausea and vomiting, Malignant pleural effusion. - Condition is Stable. - Discharge Instructions: Nausea and Vomiting, Adult, Pleural Effusion, Viral Gastroenteritis, Adult. - Prescriptions for Zofran ODT 4 mg Oral tablet,disintegrating - place 1 tablet by TRANSLINGUAL route every 8 hours As needed; 20 tablet. Ultram 50 mg Oral Tablet - take 1 tablet by ORAL route every 6 hours As needed; 20 tablet. Bactrim DS 800- 160 mg Oral Tablet - take 1 tablet by ORAL route every 12 hours for 10 days; 20 tablet. - Medication Reconciliation Form, Thank You Letter, Antibiotic Education, Prescription Opioid Use form. - Follow up: Private Physician; When: As needed; Reason: Recheck today's complaints, Re-evaluation by your physician. - Problem is new. - Symptoms have improved. Signatures: Dispatcher [employer] [facility] Justin Sierra RN RN sg Thom Garcia, CONTROL SYSTEMS DESIGNER CONTROL SYSTEMS DESIGNER em Arthur Guzman MD MD rotary furnace operator: (The following items were deleted from the chart) 08:25 08:16 Allergies: No Known Allergies; em em 11:19 10:59 Chest Single View+RAD.[email or web address].[email or web address] ordered. [facility] 11:25 11:25 05/24/2019 11:25 Discharged to Home. Impression: Ileitis; Nausea and vomiting. rn Condition is Stable. Forms are Medication Reconciliation Form, Thank You Letter, Antibiotic Education, Prescription Opioid Use. Follow up: Private Physician; When: As needed; Reason: Recheck today's complaints, Re-evaluation by your physician. Problem is new. Symptoms have improved. rn 11:47 11:25 05/24/2019 11:25 Discharged to Home. Impression: Ileitis; Nausea and vomiting; em Malignant pleural effusion. Condition is Stable. Forms are Medication Reconciliation Form, Thank You Letter, Antibiotic Education, Prescription Opioid Use. Follow up: Private Physician; When: As needed; Reason: Recheck today's complaints, Re-evaluation by your physician. Problem is new. Symptoms have improved. rn
--- OUTSIDE RECORDS SUMMARY | 2019-05-24 12:50 | XMS REPORT | Encounter Summary ---
:1940 Author Care Team Providers Name Role Phone Luis E Armstrong MD Primary Care Provider [phone] Reason for Visit Follow Up Visit Instructions 1. Paronychia of finger culture, aerobic sulfamethoxazole 400 mg-trimethoprim 80 mg tablet Discussion Note: None recorded.Patient educational handouts: No information available. Plan of Care Reminders Provider Appointments None recorded. Lab Culture, [facility] 04/29/2019 [facility] (Labs) (Xray) Referral None recorded. Procedures None recorded. Surgeries None recorded. Imaging None recorded. Medications Name Start Date Advair Diskus 500 mcg-50 mcg/dose powder for inhalation 04/29/2019 aspirin 81 mg tablet,delayed release Take 1 tablet every day by oral route. atorvastatin 40 mg tablet clopidogrel 75 mg tablet Take 1 tablet every day by oral route. levothyroxine 125 mcg tablet nitroglycerin 0.4 mg sublingual tablet Pepcid Stool Softener sulfamethoxazole 400 mg-trimethoprim 80 mg tablet Take 2 tablets every 12 hours by oral route. take for infection Medications Administered None recorded. Vitals Height Weight BMI Blood Pressure 63 in 148 lbs 16 oz 26.4 kg/m2 135/80 mm[Hg] Lab Results None recorded. Allergies Code Code System Name Reaction Severity Status Onset NKDA Problems Name Status Onset Date Source Coronary Arteriosclerosis Active 08/29/2018 Psoriasis Active 08/29/2018 Cervical Lymphadenopathy Active 08/29/2018 History of Malignant Neoplasm of Thyroid Active 08/29/2018 Paronychia of Finger Active 04/29/2019 Gallstone Active Encounter Urinary Tract Infectious Disease Active Encounter Blood in Urine Active Encounter Abdominal Pain Active Encounter Right Upper Quadrant Pain Active Encounter Epigastric Pain Active Encounter Procedures Date Name Performed by 03/16/2015 Cholecystectomy with Cholangiography, Information not available Laparoscopic (Surg) Thyroid Surgery Information not available Vaccine List Vaccine Type influenza, seasonal, injectable 07/21/2014 Social History Smoking Status Former Smoker Past Encounters 04/29/2019 Paronychia of Finger Luis E Armstrong MD: [address] [place] [address], [address], [place] [address], Ph. History of Present Illness Note: cc infected nailbed<div>hpi started 1 wk ago tender and painful& lt;/div>Review of Systems: ROS as noted in the HPI Review of Systems None recorded. Physical Exam Notes: vs reviewed<div>gen mild distress</div><div>rt thumbnail bed infected</ div>
--- OUTSIDE RECORDS SUMMARY | 2019-05-24 12:50 | XMS REPORT ---
:1940 Author Organization [facility] Address [address] [place] [address] [address]. [address] [place] [address] Care Team Providers Name Role Phone TRACEY MI Unavailable Unavailable CATIE MAYA Unavailable Unavailable Problems This patient has no known problems. Allergies, Adverse Reactions, Alerts This patient has no known allergies or adverse reactions. Medications This patient has no known medications. Results Test Description Test Time Test Comments Text Results Atomic Results Result Comments TISSUE EXAM 2019-03-02 14:54:00 Surgical Pathology Report Case: [id number] Authorizing Provider: Tracey Mi MD Collected: 02/13/2019 1036 Ordering Location: [facility] Received: 02/13/2019 1537 PERIOPERATIVE SERVICES Pathologist: Wilfred Paz MD Specimen: Plaque, Right carotic plaque ARTERY, RIGHT CAROTID, ENDARTERECTOMY:CALCIFIC ATHEROSCLEROTIC PLAQUE WITH INTRAPLAQUE HEMORRHAGE Signing Pathologist Direct Phone Line: [phone] signed by Wilfred Paz MD on 03/02/2019 at 2:54 [id number]; [id number] of right carotid artery Right carotid plaque Specimen is received in saline labeled with the patient's information and labeled "right carotid plaque" and consists of a tubular shaped segment of calcified tissue measuring 2.6 cm in length and 0.6 cm in diameter. Electric Tool Repairer sections are submitted in A1 for decalcification. CG/ewPerformed BASIC METABOLIC PANEL 2019-02-15 07:02:00 Test Item Value Reference Range Comments SODIUM (BEAKER) (test 137 meq/L 136-145 gtzc=515) POTASSIUM (BEAKER) (test 4.0 meq/L 3.5-5.1 Specimen slightly hemolyzed vuna=568) CHLORIDE (BEAKER) (test 109 meq/L 98-107 yihm=890) CO2 (BEAKER) (test 19 meq/L 22-29 tisz=932) BLOOD UREA NITROGEN 20 mg/dL 7-21 (BEAKER) (test cpue=964) CREATININE (BEAKER) (test 0.57 mg/dL 0.57-1.25 Specimen slightly hemolyzed tydu=965) GLUCOSE RANDOM (BEAKER) 100 mg/dL 70-105 (test twgv=641) CALCIUM (BEAKER) (test 8.5 mg/dL 8.4-10.2 bmsf=584) EGFR (BEAKER) (test 103 mL/min/1.73 sq m ESTIMATED GFR IS NOT gtyp=4534) ACCURATE CREATININE CLEARANCE IN PREDICTING GLOMERULAR FILTRATION RATE. ESTIMATED GFR IS NOT APPLICABLE FOR DIALYSIS PATIENTS. CBC (HEMOGRAM ONLY)2019-02-15 06:45:00 Test Item Value Reference Range Comments WHITE BLOOD CELL COUNT 6.7 K/ L 3.5-10.5 (BEAKER) (test kggp=891) RED BLOOD CELL COUNT (BEAKER) 4.00 M/ L 3.93-5.22 (test kcaa=764) HEMOGLOBIN (BEAKER) (test 11.5 GM/DL 11.2-15.7 kyrc=684) HEMATOCRIT (BEAKER) (test 38.8 % 34.1-44.9 sdgx=611) MEAN CORPUSCULAR VOLUME 97.0 fL 79.4-94.8 Discordant results compared (BEAKER) (test bjyw=481) to previous result; clinical correlation required. MEAN CORPUSCULAR HEMOGLOBIN 28.8 pg 25.6-32.2 (BEAKER) (test ctuu=530) MEAN CORPUSCULAR HEMOGLOBIN 29.6 GM/DL 32.2-35.5 CONC (BEAKER) (test urxz=414) RED CELL DISTRIBUTION WIDTH 13.8 % 11.7-14.4 (BEAKER) (test plou=466) PLATELET COUNT (BEAKER) (test 168 K/CU MM 150-450 krce=598) MEAN PLATELET VOLUME (BEAKER) 10.5 fL 9.4-12.3 (test sbaj=670) NUCLEATED RED BLOOD CELLS 0 /100 WBC 0-0 (BEAKER) (test sbsv=082) PLATELET AGGREGATION: FUNCTION [id number] 11:39:00 Test Item Value Reference Range Comments WEAK ADP RESULT(BEAKER) (test 62 % 60-91 uumi=4490) PLATELET FUNCTION SCREEN 60-100% indicates normal INTERP (BEAKER) (test platelet function oloi=5382) EHQW-NBHSCPUNUCA-0010 (BEAKER) Axel Park M.D. (electonic (test yhbl=2487) signature) PLATELET COUNT AGG (BEAKER) 184 K/CU MM 150-450 (test prle=8898) Platelet Function Screen results may be falsely low with platelet counts<100, 000/cu mm.CBC W/PLT COUNT & AUTO [id number] 06:32:00 Test Item Value Reference Range Comments WHITE BLOOD CELL COUNT (BEAKER) (test eegn=500) 7.8 K/ L 3.5-10.5 RED BLOOD CELL COUNT (BEAKER) (test apap=634) 3.93 M/ L 3.93-5.22 HEMOGLOBIN (BEAKER) (test vfrl=581) 11.6 GM/DL 11.2-15.7 HEMATOCRIT (BEAKER) (test unve=976) 34.9 % 34.1-44.9 MEAN CORPUSCULAR VOLUME (BEAKER) (test hseq=964) 88.8 fL 79.4-94.8 MEAN CORPUSCULAR HEMOGLOBIN (BEAKER) (test 29.5 pg 25.6-32.2 qlni=463) MEAN CORPUSCULAR HEMOGLOBIN CONC (BEAKER) (test 33.2 GM/DL 32.2-35.5 iggl=376) RED CELL DISTRIBUTION WIDTH (BEAKER) (test 13.2 % 11.7-14.4 vtst=704) PLATELET COUNT (BEAKER) (test mkxr=400) 172 K/CU MM 150-450 MEAN PLATELET VOLUME (BEAKER) (test dhbf=593) 10.5 fL 9.4-12.3 NUCLEATED RED BLOOD CELLS (BEAKER) (test 0 /100 WBC 0-0 mchj=427) NEUTROPHILS RELATIVE PERCENT (BEAKER) (test 86 % yyvz=611) LYMPHOCYTES RELATIVE PERCENT (BEAKER) (test 7 % gcds=688) MONOCYTES RELATIVE PERCENT (BEAKER) (test 6 % gyad=519) EOSINOPHILS RELATIVE PERCENT (BEAKER) (test 0 % hisx=674) BASOPHILS RELATIVE PERCENT (BEAKER) (test 0 % vost=630) NEUTROPHILS ABSOLUTE COUNT (BEAKER) (test 6.71 K/ L 1.56-6.13 cmay=112) LYMPHOCYTES ABSOLUTE COUNT (BEAKER) (test 0.53 K/ L 1.18-3.74 xbke=843) MONOCYTES ABSOLUTE COUNT (BEAKER) (test 0.49 K/ L 0.24-0.36 xcvo=332) EOSINOPHILS ABSOLUTE COUNT (BEAKER) (test 0.01 K/ L 0.04-0.36 uslp=073) BASOPHILS ABSOLUTE COUNT (BEAKER) (test 0.02 K/ L 0.01-0.08 jjnw=865) IMMATURE GRANULOCYTES-RELATIVE PERCENT (BEAKER) 0 % 0-1 (test gkdd=9409) [id number] 05:53:00 Test Item Value Reference Range Comments PHOSPHORUS (BEAKER) (test vptk=327) 3.4 mg/dL 2.3-4.7 [id number] 05:53:00 Test Item Value Reference Range Comments MAGNESIUM (BEAKER) (test pqcj=194) 1.9 mg/dL 1.6-2.6 BASIC METABOLIC [id number] 05:53:00 Test Item Value Reference Range Comments SODIUM (BEAKER) (test 141 meq/L 136-145 ybzs=267) POTASSIUM (BEAKER) (test 3.1 meq/L 3.5-5.1 ztzs=715) CHLORIDE (BEAKER) (test 107 meq/L 98-107 cdif=335) CO2 (BEAKER) (test 25 meq/L 22-29 gzkl=432) BLOOD UREA NITROGEN 13 mg/dL 7-21 (BEAKER) (test itfy=905) CREATININE (BEAKER) (test 0.51 mg/dL 0.57-1.25 vtvc=034) GLUCOSE RANDOM (BEAKER) 108 mg/dL 70-105 (test nvrl=361) CALCIUM (BEAKER) (test 8.9 mg/dL 8.4-10.2 ejpf=493) EGFR (BEAKER) (test 117 mL/min/1.73 sq m ESTIMATED GFR IS NOT veci=4696) ACCURATE CREATININE CLEARANCE IN PREDICTING GLOMERULAR FILTRATION RATE. ESTIMATED GFR IS NOT APPLICABLE FOR DIALYSIS PATIENTS. BLOOD GAS, [id number] 05:39:00 Test Item Value Reference Range Comments PH ARTERIAL (BEAKER) (test pggm=268) 7.43 7.35-7.45 PCO2 ARTERIAL (BEAKER) (test smnc=077) 37 mmHg 35-45 PO2 ARTERIAL (BEAKER) (test doxo=979) 153 mmHg 80-90 O2 SATURATION ARTERIAL (BEAKER) (test mkcn=322) 99.0 % 96.0-97.0 HCO3 ARTERIAL (BEAKER) (test jtge=084) 24 mmol/L 21-29 BASE EXCESS ARTERIAL (BEAKER) (test zdoj=789) 0.0 mmol/L -2.0-3.0 PATIENT TEMPERATURE (BEAKER) (test lawb=6797) 37.3 C FIO2 (BEAKER) (test sqvk=5313) 28.0 % BLOOD GAS, [id number] 23:56:00 Test Item Value Reference Range Comments PH ARTERIAL (BEAKER) (test jwts=172) 7.44 7.35-7.45 PCO2 ARTERIAL (BEAKER) (test gpkm=597) 37 mmHg 35-45 PO2 ARTERIAL (BEAKER) (test hzzf=262) 54 mmHg 80-90 O2 SATURATION ARTERIAL (BEAKER) (test qnpj=870) 89.3 % 96.0-97.0 HCO3 ARTERIAL (BEAKER) (test uqrl=667) 24 mmol/L 21-29 BASE EXCESS ARTERIAL (BEAKER) (test svtj=524) 0.6 mmol/L -2.0-3.0 PATIENT TEMPERATURE (BEAKER) (test evmw=2515) 37.2 C FIO2 (BEAKER) (test dbiw=1149) 21.0 % GLUCOSE-STAT [id number] 23:56:00 Test Item Value Reference Range Comments GLUCOSE RANDOM (BEAKER) (test mvkh=141) 116 mg/dL 70-110 POCT-GLUCOSE [id number] 18:31:00 Test Item Value Reference Range Comments POC-GLUCOSE METER (BEAKER) 133 mg/dL 70-[address] [facility] [address] [facility] (test whet=7312) [facility] [address] RAD, CHEST, 1 VIEW, NON [id number] 14:05:00Reason for exam:->post op carotidShould this be performed at the bedside?->YesFINAL REPORT TECHNIQUE: Frontal chest radiograph dated 02/13/2019. CLINICAL HISTORY: Post op carotid COMPARISON STUDY: None IMPRESSION:There is a small right pleural effusion with associated atelectasis. Atelectasis is also seen in the left lung base. Prominent interstitial lungmarkings seen bilaterally are compatible with interstitial pulmonary edema. No pleural effusion or pneumothorax. Cardiomediastinal silhouette is normal in size. Bones are osteopenic. Signed: Loren Bobo MDReport Verified Date/Time: 02/13/2019 14:05:47 Reading Location: [facility] Radiology Reading Room LACTIC ACID, [id number] 13:39:00 Test Item Value Reference Range Comments LACTATE BLOOD ARTERIAL (2) (BEAKER) (test 0.9 mmol/L 0.5-2.2 yifi=5583) BASIC METABOLIC [id number] 13:07:00 Test Item Value Reference Range Comments SODIUM (BEAKER) (test 139 meq/L 136-145 giic=730) POTASSIUM (BEAKER) (test 3.3 meq/L 3.5-5.1 vnhf=066) CHLORIDE (BEAKER) (test 109 meq/L 98-107 eoka=796) CO2 (BEAKER) (test 22 meq/L 22-29 rciu=085) BLOOD UREA NITROGEN 9 mg/dL 7-21 (BEAKER) (test wxuh=549) CREATININE (BEAKER) (test 0.56 mg/dL 0.57-1.25 ltpl=332) GLUCOSE RANDOM (BEAKER) 142 mg/dL 70-105 (test qipl=200) CALCIUM (BEAKER) (test 7.9 mg/dL 8.4-10.2 yapt=042) EGFR (BEAKER) (test 105 mL/min/1.73 sq m ESTIMATED GFR IS NOT nkll=7818) ACCURATE CREATININE CLEARANCE IN PREDICTING GLOMERULAR FILTRATION RATE. ESTIMATED GFR IS NOT APPLICABLE FOR DIALYSIS PATIENTS. [id number] 13:01:00 Test Item Value Reference Range Comments PHOSPHORUS (BEAKER) (test acxw=173) 3.4 mg/dL 2.3-4.7 [id number] 13:01:00 Test Item Value Reference Range Comments MAGNESIUM (BEAKER) (test qfns=895) 1.8 mg/dL 1.6-2.6 [id number] 13:00:00 Test Item Value Reference Range Comments PROTIME (BEAKER) (test hmyv=755) 15.3 seconds 11.7-14.7 INR (BEAKER) (test vqrk=556) 1.2 <=5.9 PARTIAL THROMBOPLASTIN TIME (BEAKER) (test 27.8 seconds 22.5-36.0 wijy=011) RECOMMENDED COUMADIN/WARFARIN INR THERAPY RANGESSTANDARD DOSE: 2.0 - 3.0 Includes: PROPHYLAXIS forvenous thrombosis, systemic embolization; TREATMENT for venous thrombosis and/or pulmonary embolus.HIGH RISK: Target INR is 2.5-3.5 for patients with mechanical heart valves.CBC (HEMOGRAM ONLY)2019-02-13 12:45:00 Test Item Value Reference Range Comments WHITE BLOOD CELL COUNT (BEAKER) (test rpqj=179) 7.7 K/ L 3.5-10.5 RED BLOOD CELL COUNT (BEAKER) (test crhb=183) 3.82 M/ L 3.93-5.22 HEMOGLOBIN (BEAKER) (test hpmw=773) 11.3 GM/DL 11.2-15.7 HEMATOCRIT (BEAKER) (test gtlz=980) 34.0 % 34.1-44.9 MEAN CORPUSCULAR VOLUME (BEAKER) (test abfx=335) 89.0 fL 79.4-94.8 MEAN CORPUSCULAR HEMOGLOBIN (BEAKER) (test 29.6 pg 25.6-32.2 tytr=215) MEAN CORPUSCULAR HEMOGLOBIN CONC (BEAKER) (test 33.2 GM/DL 32.2-35.5 rofk=820) RED CELL DISTRIBUTION WIDTH (BEAKER) (test 13.5 % 11.7-14.4 zbye=095) PLATELET COUNT (BEAKER) (test ihhg=008) 159 K/CU MM 150-450 MEAN PLATELET VOLUME (BEAKER) (test idgq=965) 10.2 fL 9.4-12.3 NUCLEATED RED BLOOD CELLS (BEAKER) (test 0 /100 WBC 0-0 ciwg=156) BLOOD GAS, [id number] 12:39:00 Test Item Value Reference Range Comments PH ARTERIAL (BEAKER) (test degs=773) 7.37 7.35-7.45 PCO2 ARTERIAL (BEAKER) (test cjcj=340) 40 mmHg 35-45 PO2 ARTERIAL (BEAKER) (test gcbh=572) 99 mmHg 80-90 O2 SATURATION ARTERIAL (BEAKER) (test xdds=361) 97.5 % 96.0-97.0 HCO3 ARTERIAL (BEAKER) (test ebin=358) 23 mmol/L 21-29 BASE EXCESS ARTERIAL (BEAKER) (test gtfo=309) -2.7 mmol/L -2.0-3.0 PATIENT TEMPERATURE (BEAKER) (test rxtg=3729) 36.5 C FIO2 (BEAKER) (test uxvy=7213) 28.0 % [id number] 06:48:00 Test Item Value Reference Range Comments MAGNESIUM (BEAKER) (test nbsk=568) 1.9 mg/dL 1.6-2.6 BASIC METABOLIC [id number] 06:48:00 Test Item Value Reference Range Comments SODIUM (BEAKER) (test 142 meq/L 136-145 atpp=090) POTASSIUM (BEAKER) (test 3.5 meq/L 3.5-5.1 cyek=960) CHLORIDE (BEAKER) (test 108 meq/L 98-107 vzxi=567) CO2 (BEAKER) (test 25 meq/L 22-29 ihlg=068) BLOOD UREA NITROGEN 14 mg/dL 7-21 (BEAKER) (test ypsu=372) CREATININE (BEAKER) (test 0.63 mg/dL 0.57-1.25 otql=080) GLUCOSE RANDOM (BEAKER) 111 mg/dL 70-105 (test lggr=557) CALCIUM (BEAKER) (test 9.4 mg/dL 8.4-10.2 hxyu=616) EGFR (BEAKER) (test 91 mL/min/1.73 sq m ESTIMATED GFR IS NOT fwmr=1876) ACCURATE CREATININE CLEARANCE IN PREDICTING GLOMERULAR FILTRATION RATE. ESTIMATED GFR IS NOT APPLICABLE FOR DIALYSIS PATIENTS. CBC W/PLT COUNT & AUTO [id number] 06:36:00 Test Item Value Reference Range Comments WHITE BLOOD CELL COUNT (BEAKER) (test ctwo=194) 5.8 K/ L 3.5-10.5 RED BLOOD CELL COUNT (BEAKER) (test rfpb=805) 4.31 M/ L 3.93-5.22 HEMOGLOBIN (BEAKER) (test vevb=436) 12.7 GM/DL 11.2-15.7 HEMATOCRIT (BEAKER) (test qxqm=244) 38.1 % 34.1-44.9 MEAN CORPUSCULAR VOLUME (BEAKER) (test oroi=238) 88.4 fL 79.4-94.8 MEAN CORPUSCULAR HEMOGLOBIN (BEAKER) (test 29.5 pg 25.6-32.2 isqy=349) MEAN CORPUSCULAR HEMOGLOBIN CONC (BEAKER) (test 33.3 GM/DL 32.2-35.5 tavx=352) RED CELL DISTRIBUTION WIDTH (BEAKER) (test 13.2 % 11.7-14.4 cwmf=973) PLATELET COUNT (BEAKER) (test ghfj=698) 195 K/CU MM 150-450 MEAN PLATELET VOLUME (BEAKER) (test sxow=309) 10.4 fL 9.4-12.3 NUCLEATED RED BLOOD CELLS (BEAKER) (test 0 /100 WBC 0-0 ivrz=026) NEUTROPHILS RELATIVE PERCENT (BEAKER) (test 79 % ahfj=391) LYMPHOCYTES RELATIVE PERCENT (BEAKER) (test 10 % stqw=095) MONOCYTES RELATIVE PERCENT (BEAKER) (test 8 % suht=129) EOSINOPHILS RELATIVE PERCENT (BEAKER) (test 2 % zfom=412) BASOPHILS RELATIVE PERCENT (BEAKER) (test 1 % bwqc=975) NEUTROPHILS ABSOLUTE COUNT (BEAKER) (test 4.57 K/ L 1.56-6.13 oxgt=833) LYMPHOCYTES ABSOLUTE COUNT (BEAKER) (test 0.58 K/ L 1.18-3.74 kmzk=766) MONOCYTES ABSOLUTE COUNT (BEAKER) (test 0.45 K/ L 0.24-0.36 lvbt=438) EOSINOPHILS ABSOLUTE COUNT (BEAKER) (test 0.10 K/ L 0.04-0.36 roih=500) BASOPHILS ABSOLUTE COUNT (BEAKER) (test 0.06 K/ L 0.01-0.08 ednq=793) IMMATURE GRANULOCYTES-RELATIVE PERCENT (BEAKER) 0 % 0-1 (test gtns=3139) POCT-GLUCOSE [id number] 05:55:00 Test Item Value Reference Range Comments POC-GLUCOSE METER (BEAKER) 103 mg/dL 70-[address] [facility] [address] [facility] (test lgsd=1782) [facility] [address] PROTHROMBIN [id number] 13:00:00 Test Item Value Reference Range Comments PROTIME (BEAKER) (test uoql=753) 13.4 seconds 11.7-14.7 INR (BEAKER) (test mhwr=600) 1.0 <=5.9 RECOMMENDED COUMADIN/WARFARIN INR THERAPY RANGESSTANDARD DOSE: 2.0 - 3.0 Includes: PROPHYLAXIS forvenous thrombosis, systemic embolization; TREATMENT for venous thrombosis and/or pulmonary embolus.HIGH RISK: Target INR is 2.5-3.5 for patients with mechanical heart valves.BASIC METABOLIC [id number] 07:26: 00 Test Item Value Reference Range Comments SODIUM (BEAKER) (test 139 meq/L 136-145 mrhj=846) POTASSIUM (BEAKER) (test 4.3 meq/L 3.5-5.1 vthr=876) CHLORIDE (BEAKER) (test 110 meq/L 98-107 htyl=625) CO2 (BEAKER) (test 24 meq/L 22-29 nwck=639) BLOOD UREA NITROGEN 21 mg/dL 7-21 (BEAKER) (test qcdf=031) CREATININE (BEAKER) (test 0.65 mg/dL 0.57-1.25 dwui=261) GLUCOSE RANDOM (BEAKER) 106 mg/dL 70-105 (test igdf=761) CALCIUM (BEAKER) (test 8.6 mg/dL 8.4-10.2 oexz=117) EGFR (BEAKER) (test 88 mL/min/1.73 sq m ESTIMATED GFR IS NOT lfcs=9575) ACCURATE CREATININE CLEARANCE IN PREDICTING GLOMERULAR FILTRATION RATE. ESTIMATED GFR IS NOT APPLICABLE FOR DIALYSIS PATIENTS. [id number] 07:09:00 Test Item Value Reference Range Comments MAGNESIUM (BEAKER) (test xlsr=559) 2.7 mg/dL 1.6-2.6 CBC (HEMOGRAM ONLY)2018-03-28 05:50:00 Test Item Value Reference Range Comments WHITE BLOOD CELL COUNT (BEAKER) (test hdfb=216) 6.5 K/ L 3.5-10.5 RED BLOOD CELL COUNT (BEAKER) (test qill=542) 3.90 M/ L 3.93-5.22 HEMOGLOBIN (BEAKER) (test jteo=792) 11.1 GM/DL 11.2-15.7 HEMATOCRIT (BEAKER) (test lzhg=500) 34.7 % 34.1-44.9 MEAN CORPUSCULAR VOLUME (BEAKER) (test ryym=782) 89.0 fL 79.4-94.8 MEAN CORPUSCULAR HEMOGLOBIN (BEAKER) (test 28.5 pg 25.6-32.2 nnuh=035) MEAN CORPUSCULAR HEMOGLOBIN CONC (BEAKER) (test 32.0 GM/DL 32.2-35.5 srtp=500) RED CELL DISTRIBUTION WIDTH (BEAKER) (test 13.9 % 11.7-14.4 zncy=301) PLATELET COUNT (BEAKER) (test bfsf=114) 194 K/CU MM 150-450 MEAN PLATELET VOLUME (BEAKER) (test ibxl=139) 10.4 fL 9.4-12.3 NUCLEATED RED BLOOD CELLS (BEAKER) (test 0 /100 WBC 0-0 bpvy=244) BASIC METABOLIC [id number] 18:24:00 Test Item Value Reference Range Comments SODIUM (BEAKER) (test 140 meq/L 136-145 vbls=306) POTASSIUM (BEAKER) (test 2.8 meq/L 3.5-5.1 ruji=062) CHLORIDE (BEAKER) (test 115 meq/L 98-107 jklj=538) CO2 (BEAKER) (test 21 meq/L 22-29 qfnn=418) BLOOD UREA NITROGEN 13 mg/dL 7-21 (BEAKER) (test yazp=573) CREATININE (BEAKER) (test 0.49 mg/dL 0.57-1.25 gwrd=267) GLUCOSE RANDOM (BEAKER) 97 mg/dL 70-105 (test rttp=651) CALCIUM (BEAKER) (test 6.3 mg/dL 8.4-10.2 rqmr=914) EGFR (BEAKER) (test 122 mL/min/1.73 sq m ESTIMATED GFR IS NOT sizk=5898) ACCURATE CREATININE CLEARANCE IN PREDICTING GLOMERULAR FILTRATION RATE. ESTIMATED GFR IS NOT APPLICABLE FOR DIALYSIS PATIENTS. [id number] 18:20:00 Test Item Value Reference Range Comments PHOSPHORUS (BEAKER) (test fqtu=214) 3.3 mg/dL 2.3-4.7 [id number] 18:20:00 Test Item Value Reference Range Comments MAGNESIUM (BEAKER) (test xypm=153) 1.6 mg/dL 1.6-2.6 [id number] 11:48:00 Test Item Value Reference Range Comments ACTIVATED CLOTTING TIME [address] [facility] [address] (BEAKER) (test yvys=439) [place] [id number]
--- OUTSIDE RECORDS SUMMARY | 2019-05-24 12:50 | XMS REPORT | Clinical Summary ---
:1940 Author Organization [facility] Address [address] [place] [address] Care Team Providers Name Role Phone Luis E Armstrong Primary Care Provider Fabián Farley Unavailable Allergies Active Allergy Reactions Severity Noted Date Comments Aprepitant Analogues Other (See Comments) 02/09/2019 Dizziness, dry mouth, closed throat. Medications Medication Sig Dispensed Refills Start End Date Status Date docusate sodium Take 100 mg by 0 Active (COLACE) 100 MG mouth daily . capsule levothyroxine Take 100 mcg by 0 Active (SYNTHROID, mouth Every LEVOTHROID) 100 morning on an MCG empty stomach. tabletIndications: Adjunct to Surgery or Radiotherapy for Thyroid Carcinoma nitroglycerin Place 1 tablet 100 tablet 0 Active (NITROSTAT) 0.4 MG (0.4 mg total) 8 SL tablet under the tongue every 5 (five) minutes as needed for Chest pain (Can repeat twice). pantoprazole Take 1 tablet (20 90 tablet 0 Active (PROTONIX) 20 MG mg total) by mouth 8 tablet daily. fluocinonide APPLY TOPICALLY TO 3 Active (LIDEX) 0.05 % AFFECTED AREA(S) 9 solution DAILY. ON SCALP FOR FOR PSORIASIS ranitidine Take 150 mg by 0 Active (ZANTAC) 150 MG mouth daily. tablet fexofenadine Take by mouth as 0 Active (WHITNEY) 180 MG needed. tablet acetaminophen Take 500 mg by 0 Active (TYLENOL) 500 MG mouth every 6 tablet (six) hours as needed for Pain. pembrolizumab Inject 0 02/10/20 Discontinued (KEYTRUDA) chemo intravenously Pt 19 infusion not sure about drug. Given at [facility] for recurrent thyroid CA. . aspirin 81 MG EC Take 1 tablet (81 360 tablet 0 03/29/20 tablet mg total) by mouth 8 19 daily. atenolol Take 0.5 tablets 45 tablet 0 02/10/20 Discontinued (TENORMIN) 25 MG (12.5 mg total) by 8 19 tablet mouth daily. atorvastatin Take 1 tablet (40 90 tablet 0 03/28/20 (LIPITOR) 40 MG mg total) by mouth 8 19 tablet nightly. clopidogrel Take 1 tablet (75 90 tablet 3 03/29/20 (PLAVIX) 75 mg mg total) by mouth 8 19 tablet daily. Active Problems Problem Noted Date Carotid artery stenosis without cerebral infarction, right 02/13/2019 Carotid artery stenosis 02/13/2019 Unstable angina pectoris 03/28/2018 Chest pain 03/27/2018 Encounters Date Type Specialty Care Team Description 02/26/2019 Office Visit Cardiology Joan Armijo Post-operative MD Maria Alejandra state (Primary Dx) 02/13/2019 Surgery Joan Armijo ENDARTERECTOMY,JESSICA Bess MD TID 02/13/2019 Anesthesia Event Vibha Lozoya MD 02/13/2019 - Hospital Encounter Cardiology Joan Armijo Stenosis of carotid 02/15/2019 MD Maria Alejandra artery, unspecified laterality (Primary Dx) 02/13/2019 Outside Orders Radiology Kendra Whatley 02/09/2019 Hospital Encounter Joan Armijo Unstable angina MD Maria Alejandra pectoris (HCC) 02/09/2019 Office Visit Cardiology Joan Armijo Stenosis of carotid MD Maria Alejandra artery, unspecified laterality (Primary Dx) 02/09/2019 Orders Only General Internal Medicine after 05/23/2018 Social History Tobacco Use Types Packs/Day Years Used Date Never Smoker Smokeless Tobacco: Never Used Alcohol Use Drinks/Week oz/Week Comments No Sex Assigned at Date Recorded Not on file Job Start Date Occupation Industry Not on file Not on file Not on file Travel History Travel Start Travel End No recent travel history available. Last Filed Vital Signs Vital Sign Reading Time Taken Blood Pressure 165/74 02/26/2019 9:31 AM CDT Pulse 84 02/26/2019 9:28 AM CDT Temperature 36.6 C (97.9 F) 02/26/2019 9:28 AM CDT Respiratory Rate 14 02/26/2019 9:28 AM CDT Oxygen Saturation 95% 02/26/2019 9:28 AM CDT Inhaled Oxygen Concentration - - Weight 68.8 kg (151 lb 11.2 oz) 02/15/2019 8:00 AM CDT Height 162.6 cm (5' 4") 02/26/2019 9:28 AM CDT Body Mass Index 26.04 02/15/2019 8:00 AM CDT Plan of Treatment Not on file Implants Implanted Type Area It Risk And Assurance Manager Device Shelf Model / Identifier Expiration Serial / Date Lot Device Clsr Angio-Seal Vip 6fr [id number] - [id number] Cardiovascular N/A: Groin [facility] [place] 12/18/2018 [id number] / Implanted: Qty: 1 on 03/27/2018 by Issac Stewart MD MED:CARDIAC / SURG [id number] Synergy Stents-Coronary N/A: [place] [id number] 01/07/2019 [id number] / Implanted: Qty: 1 on 03/27/2018 by Issac Stewart MD Coronary SCIENTIFIC / [id number] Synergy Stents-Coronary N/A: [place] [id number] 07/22/2018 [id number] / Implanted: Qty: 1 on 03/27/2018 by Issac Stewart MD Coronary SCIENTIFIC / [id number] Patch Periph Vascu-Grd 0.8x8cm Vg-[id number] - Snone Tissue Right: [employer] [id number] 06/20/2023 [id number] / Implanted: Qty: 1 on 02/13/2019 by Joan Armijo MD Graft/ Substitute Carotid TECH:SURG NONE / Artery INNOV [id number] Procedures Procedure Name Priority Date/Time Associated Comments Diagnosis RHYTHM STRIP - SCAN 02/20/2019 10:30 AM CDT RHYTHM STRIP - SCAN 02/17/2019 9:00 AM CDT BASIC METABOLIC PANEL Routine 02/15/2019 5:48 Results for this (7) AM CDT procedure are in the results section. CBC (HEMOGRAM ONLY) Routine 02/15/2019 5:48 Results for this AM CDT procedure are in the results section. TRANSFUSION SERVICE 02/14/2019 6:03 REPORT - SCAN PM CDT CBC W/PLT COUNT & Routine 02/14/2019 5:27 Results for this AUTO DIFFERENTIAL AM CDT procedure are in the results section. BLOOD GAS, ARTERIAL Routine 02/14/2019 5:27 Results for this AM CDT procedure are in the results section. PHOSPHORUS Routine 02/14/2019 5:27 Results for this AM CDT procedure are in the results section. MAGNESIUM Routine 02/14/2019 5:27 Results for this AM CDT procedure are in the results section. BASIC METABOLIC PANEL Routine 02/14/2019 5:27 Results for this (7) AM CDT procedure are in the results section. CBC W/PLT COUNT & Routine 02/14/2019 5:27 Results for this AUTO DIFFERENTIAL AM CDT procedure are in the results section. ECG 12-LEAD Routine 02/14/2019 5:02 Results for this AM CDT procedure are in the results section. GLUCOSE-STAT LAB Routine 02/13/2019 11:50 Results for this PM CDT procedure are in the results section. BLOOD GAS, ARTERIAL Routine 02/13/2019 11:50 Results for this PM CDT procedure are in the results section. POCT-GLUCOSE METER Routine 02/13/2019 6:26 Results for this PM CDT procedure are in the results section. ECG 12-LEAD Routine 02/13/2019 12:55 PM CDT Procedure Note - Interface, External Ris In - 02/13/2019 1:01 PM CDT Ventricular Rate 75 BPM Atrial Rate 75 BPM P-R Interval 158 ms QRS Duration 100 ms Q-T Interval 472 ms QTC Calculation(Bazett) 527 ms P Marks 72 degrees R Marks 25 degrees T Marks 62 degrees Sinus rhythm with Premature supraventricular complexes Incomplete right bundle branch block Nonspecific ST abnormality Prolonged QT Abnormal ECG When compared with ECG of 09-FEB-2019 12:23, Premature supraventricular complexes are now Present QT has lengthened ECG 12-LEAD Routine 02/13/2019 12:55 PM Results for this CDT procedure are in the results section. XR CHEST 1 VIEW Routine 02/13/2019 12:48 PM Results for this PORTABLE/BEDSIDE CDT procedure are in the results section. PHOSPHORUS STAT 02/13/2019 12:25 PM Results for this CDT procedure are in the results section. MAGNESIUM STAT 02/13/2019 12:25 PM Results for this CDT procedure are in the results section. BASIC METABOLIC STAT 02/13/2019 12:25 PM Results for this PANEL (7) CDT procedure are in the results section. BLOOD GAS, ARTERIAL STAT 02/13/2019 12:19 PM Results for this CDT procedure are in the results section. LACTIC ACID, STAT 02/13/2019 12:19 PM Results for this ARTERIAL CDT procedure are in the results section. PT/APTT STAT 02/13/2019 12:19 PM Results for this CDT procedure are in the results section. CBC (HEMOGRAM ONLY) STAT 02/13/2019 12:19 PM Results for this CDT procedure are in the results section. TISSUE EXAM AP Routine 02/13/2019 10:36 AM Results for this CDT procedure are in the results section. ENDARTERECTOMY,CAROT 02/13/2019 7:30 AM Stenosis of right ID CDT carotid artery Special Needs (CELL SAVER, ICU BED POST OP) CBC W/PLT COUNT & AUTO Routine 02/13/2019 6:21 AM CDT Results for this DIFFERENTIAL procedure are in the results section. ABORH, MANUAL STAT 02/13/2019 6:21 AM CDT PLATELET AGGREGATION: AP Routine 02/13/2019 6:21 AM CDT Results for this FUNCTION SCREEN procedure are in the results section. MAGNESIUM Routine 02/13/2019 6:21 AM CDT CBC W/PLT COUNT & AUTO Routine 02/13/2019 6:21 AM CDT Results for this DIFFERENTIAL procedure are in the results section. BASIC METABOLIC PANEL (7) Routine 02/13/2019 6:21 AM CDT POCT-GLUCOSE METER Routine 02/13/2019 5:39 AM CDT TRANSFUSION SERVICE REPORT 02/10/2019 6:12 PM CDT - SCAN TYPE AND SCREEN, AUTOMATED STAT 02/09/2019 12:40 PM CDT PROTHROMBIN TIME/INR Routine 02/09/2019 12:40 PM CDT ECG 12-LEAD Routine 02/09/2019 12:23 PM CDT Procedure Note - Interface, External Ris In - 02/09/2019 3:29 PM CDT Ventricular Rate 84 BPM Atrial Rate 84 BPM P-R Interval 144 ms QRS Duration 94 ms Q-T Interval 392 ms QTC Calculation(Bazett) 463 ms P Marks 85 degrees R Marks 60 degrees T Marks 67 degrees Normal sinus rhythm Normal ECG When compared with ECG of 27-MAR-2018 06:59, Nonspecific T wave abnormality no longer evident in Lateral leads ECG 12-LEAD Routine 02/09/2019 12:23 PM CDT VASCULAR DIAGRAM -SCAN 06/19/2018 3:03 PM CDT after 05/23/2018 Results RHYTHM STRIP - SCAN (02/20/2019 10:30 AM CDT)Only the most recent of2 resultswithin the time period is included. Narrative Performed At CBC (Hemogram only) (02/15/2019 5:48 AM CDT)Only the most recent of2 resultswithin the time period is included. WBC 6.7 3.5 - 10.5 K/L [facility] RBC 4.00 3.93 - 5.22 M/L [facility] Hemoglobin 11.5 11.2 - 15.7 GM/DL [facility] Hematocrit 38.8 34.1 - 44.9 % [facility] MCV 97.0 (H)Comment: Discordant 79.4 - 94.8 fL [facility] results compared to previous MEDICAL CENTER result; clinical correlation required. MCH 28.8 25.6 - 32.2 pg [facility] MCHC 29.6 (L) 32.2 - 35.5 GM/DL [facility] RDW 13.8 11.7 - 14.4 % [facility] Platelets 168 150 - 450 K/CU MM [facility] MPV 10.5 9.4 - 12.3 fL [facility] nRBC 0 0 - 0 /100 WBC [facility] Specimen Blood Performing Organization Address City/State/Zipcode Phone Number [facility] [address] [place], [place] [phone] [place] Basic Metabolic Panel (02/15/2019 5:48 AM CDT)Only the most recent of4 resultswithin the time period is included. Sodium 137 136 - 145 meq/L [facility] Potassium 4.0Comment: Specimen slightly 3.5 - 5.1 meq/L [facility] hemolyzed [facility] Chloride 109 (H) 98 - 107 meq/L [facility] CO2 19 (L) 22 - 29 meq/L [facility] BUN 20 7 - 21 mg/dL [facility] Creatinine 0.57Comment: Specimen 0.57 - 1.25 mg/dL [facility] slightly hemolyzed [facility] Glucose 100 70 - 105 mg/dL [facility] Calcium 8.5 8.4 - 10.2 mg/dL [facility] EGFR 103Comment: ESTIMATED GFR IS mL/min/1.73 sq m [facility] NOT ACCURATE CREATININE [facility] CLEARANCE IN PREDICTING GLOMERULAR FILTRATION RATE. ESTIMATED GFR IS NOT APPLICABLE FOR DIALYSIS PATIENTS. Specimen Blood Performing Organization Address City/[facility]/Zipcode Phone Number [facility] [address] [place] [address] [phone] [place] TRANSFUSION SERVICE REPORT - SCAN (02/14/2019 6:03 PM CDT)Only the most recent of2 resultswithin the time period is included. Narrative Performed At CBC with platelet count + automated diff (02/14/2019 5:27 AM CDT)Only the most recent of2 resultswithin the time period is included. WBC 7.8 3.5 - 10.5 K/L [facility] RBC 3.93 3.93 - 5.22 M/L [facility] Hemoglobin 11.6 11.2 - 15.7 GM/DL [facility] Hematocrit 34.9 34.1 - 44.9 % [facility] MCV 88.8 79.4 - 94.8 fL [facility] MCH 29.5 25.6 - 32.2 pg [facility] MCHC 33.2 32.2 - 35.5 GM/DL [facility] RDW 13.2 11.7 - 14.4 % [facility] Platelets 172 150 - 450 K/CU MM [facility] MPV 10.5 9.4 - 12.3 fL [facility] nRBC 0 0 - 0 /100 WBC [facility] % Neutros 86 % [facility] % Lymphs 7 % [facility] % Monos 6 % [facility] % Eos 0 % [facility] % Baso 0 % [facility] # Neutros 6.71 (H) 1.56 - 6.13 K/L [facility] # Lymphs 0.53 (L) 1.18 - 3.74 K/L [facility] # Monos 0.49 (H) 0.24 - 0.36 K/L [facility] # Eos 0.01 (L) 0.04 - 0.36 K/L [facility] # Baso 0.02 0.01 - 0.08 K/L [facility] Immature Granulocytes-Relative 0 0 - 1 % [facility] Specimen Blood Performing Organization Address City/State/Zipcode Phone Number [facility] [address] [place] [address] [phone] CENTER Phosphorus (02/14/2019 5:27 AM CDT)Only the most recent of2 resultswithin the time period is included. Phosphorus 3.4 2.3 - 4.7 mg/dL [facility] Specimen Blood Performing Organization Address City/[facility] Phone Number [address] [address] [place] Magnesium (02/14/2019 5:27 AM CDT)Only the most recent of3 resultswithin the time period is included. Magnesium 1.9 1.6 - 2.6 mg/dL [facility] Specimen Blood Performing Organization Address [facility] Phone Number [address] [address] [phone] [place] Blood gas, arterial (02/14/2019 5:27 AM CDT)Only the most recent of3 resultswithin the time period is included. pH, Arterial 7.43 7.35 - 7.45 [facility] pCO2, Arterial 37 35 - 45 mmHg [facility] pO2, Arterial 153 (H) 80 - 90 mmHg [facility] O2 Sat, Arterial 99.0 (H) 96.0 - 97.0 % [facility] HCO3, Arterial 24 21 - 29 mmol/L [facility] Base Excess, Arterial 0.0 -2.0 - 3.0 mmol/L [facility] Patient Temperature 37.3 C [facility] FIO2 28.0 % [facility] Specimen Blood, Arterial Performing Organization Address [facility] Phone Number [address] [address] [place] ECG 12 lead (02/14/2019 5:02 AM CDT)Only the most recent of3 resultswithin the time period is included. Specimen Narrative Performed At Ventricular Rate 92 BPM GE MUSE Atrial Rate 92 BPM P-R Interval 192 ms QRS Duration 98 ms Q-T Interval 392 ms QTC Calculation(Bazett) 484 ms P Marks 75 degrees R Marks 9 degrees T Marks 59 degrees Sinus rhythm with Premature atrial complexes Incomplete right bundle branch block Nonspecific ST abnormality Prolonged QT Abnormal ECG When compared with ECG of 13-Feb-2019 No significant changes Confirmed by Salud CHÁVEZ BASANT ([id number]) on 02/18/2019 6:07:45 PM Procedure Note Interface, External Ris In - 02/18/2019 6:07 PM CDT Ventricular Rate 92 BPM Atrial Rate 92 BPM P-R Interval 192 ms QRS Duration 98 ms Q-T Interval 392 ms QTC Calculation(Bazett) 484 ms P Marks 75 degrees R Marks 9 degrees T Marks 59 degrees Sinus rhythm with Premature atrial complexes Incomplete right bundle branch block Nonspecific ST abnormality Prolonged QT Abnormal ECG When compared with ECG of 13-Feb-2019 No significant changes Confirmed by Salud CHÁVEZ, SUPRIYA ([id number]) on 02/18/2019 6:07:45 PM Performing Organization Address City/[facility] Phone Number [facility] Glucose-Stat [facility] (02/13/2019 11:50 PM CDT) Glucose 116 (H) 70 - 110 mg/dL [facility] Specimen Blood, Arterial Performing Organization Address [facility] Phone Number [address] [address] [phone] [place] POC-Glucose meter (02/13/2019 6:26 PM CDT)Only the most recent of2 resultswithin the time period is included. POC-Glucose Meter 133 (H)Comment: TESTED AT 70 - 110 mg/dL [address] [address] Specimen Blood Performing Organization Address [facility] Phone Number [address] [address] [place] XR chest 1 view portable / bedside (02/13/2019 12:48 PM CDT) Specimen Narrative Performed At FINAL REPORT [employer] TECHNIQUE: Frontal chest radiograph dated 02/13/2019. CLINICAL HISTORY: Post op carotid COMPARISON STUDY: None IMPRESSION: There is a small right pleural effusion with associated atelectasis. Atelectasis is also seen in the left lung base. Prominent interstitial lung markings seen bilaterally are compatible with interstitial pulmonary edema. No pleural effusion or pneumothorax. Cardiomediastinal silhouette is normal in size. Bones are osteopenic. Signed: Wendi Bobo MD Report Verified Date/Time:02/13/2019 14:05:47 Reading Location: [facility] Radiology Reading Room Procedure Note Interface, External Ris In - 02/13/2019 2:08 PM CDT FINAL REPORT TECHNIQUE: Frontal chest radiograph dated 02/13/2019. CLINICAL HISTORY: Post op carotid COMPARISON STUDY: None IMPRESSION: There is a small right pleural effusion with associated atelectasis. Atelectasis is also seen in the left lung base. Prominent interstitial lung markings seen bilaterally are compatible with interstitial pulmonary edema. No pleural effusion or pneumothorax. Cardiomediastinal silhouette is normal in size. Bones are osteopenic. Signed: Wendi Bobo MD Report Verified Date/Time: 02/13/2019 14:05:47 Reading Location: [facility] Radiology Reading Room Performing Organization Address City/[facility] Phone Number [facility] PT/aPTT (02/13/2019 12:19 PM CDT) Protime 15.3 (H) 11.7 - 14.7 seconds [facility] INR 1.2 <=5.9 [facility] PTT 27.8 22.5 - 36.0 seconds [facility] Specimen Blood Narrative Performed At RECOMMENDED COUMADIN/WARFARIN INR THERAPY [facility] RANGES STANDARD DOSE: 2.0 - 3.0 Includes: PROPHYLAXIS for venous thrombosis, systemic embolization; TREATMENT for venous thrombosis and/or pulmonary embolus. HIGH RISK: Target INR is 2.5-3.5 for patients with mechanical heart valves. Performing Organization Address City/State/Zipcode Phone Number [address] [address] [phone] [place] Lactic Acid, Arterial (02/13/2019 12:19 PM CDT) Lactate, Art 0.9 0.5 - 2.2 mmol/L [facility] Specimen Blood, Arterial Performing Organization Address City/State/Zipcode Phone Number [facility] [address] [place] [address] [place] Tissue Exam (02/13/2019 10:36 AM CDT) Case Report Surgical Pathology Report Case: [id number] [facility] Authorizing Provider:Joan Armijo MD Collected: 02/13/2019 1036 [facility] Ordering Location: [facility] Received: 02/13/2019 1537 [facility] Pathologist: Wilfred Paz MD Specimen:Plaque, Right carotic plaque DIAGNOSIS ARTERY, RIGHT CAROTID, ENDARTERECTOMY: [facility] CALCIFIC ATHEROSCLEROTIC PLAQUE WITH INTRAPLAQUE HEMORRHAGE [facility] Signing Pathologist Direct Phone Line: [phone] CPT Code(s) 03028; [address]3950 [facility] CLINICAL HISTORY Stenosis of right carotid [facility] artery [facility] SPECIMEN SOURCE Right carotid plaque [facility] GROSS DESCRIPTION Specimen is received in [facility] saline labeled with the [facility] patient's information and labeled "right carotid plaque" and consists of a tubular shaped segment of calcified tissue measuring 2.6 cm in length and 0.6 cm in diameter. Cruise Guide sections are submitted in A1 for decalcification. CG/ew MICROSCOPIC DESCRIPTION Performed [facility] Specimen Tissue Performing Organization Address City/State/Zipcode Phone Number [facility] [address] [place] [address] [place] Platelet Aggregation: Function Screen (02/13/2019 6:21 AM CDT) Weak ADP 62 60 - 91 % [facility] Plt. Function Screen 60-100% indicates [facility] Interpretation normal platelet [facility] function Pathologist: Axel Park M.D. [facility] (electonic signature) [facility] Platelets 184 150 - 450 K/CU MM [facility] Specimen Blood Narrative Performed At Platelet Function Screen results may be [facility] falsely low with platelet counts <100,000/cu mm. Performing Organization Address City/[facility] Phone Number [address] [address] CENTER ABORH, manual (02/13/2019 6:21 AM CDT) ABO Grouping A [facility] Rh Factor NEG [facility] Specimen Blood Performing Organization Address [facility] Phone Number [address] [address] Type and screen, automated (02/09/2019 12:40 PM CDT) ABO/RH AUTOMATED (BEAKER) A NEGATIVE [facility] Ab Scrn NEGATIVE [facility] Specimen Blood Performing Organization Address [facility] Phone Number [address] [address] Prothrombin time/INR (02/09/2019 12:40 PM CDT) Protime 13.4 11.7 - 14.7 seconds [facility] INR 1.0 <=5.9 [facility] Specimen Blood Narrative Performed At RECOMMENDED COUMADIN/WARFARIN INR THERAPY [facility] RANGES STANDARD DOSE: 2.0 - 3.0 Includes: PROPHYLAXIS for venous thrombosis, systemic embolization; TREATMENT for venous thrombosis and/or pulmonary embolus. HIGH RISK: Target INR is 2.5-3.5 for patients with mechanical heart valves. Performing Organization Address [facility] Phone Number [address] [address] CENTER VASCULAR DIAGRAM -SCAN (06/19/2018 3:03 PM CDT) Narrative Performed At after 05/23/2018 Insurance Payer Benefit Plan / Subscriber ID Type Phone Address Group AETNA - AETNA MEDICARE xxxxxxxx [facility] Contracted [phone] [address] MEDICARE MGD HMO POS [id number] [place] [address] Advance Directives For more information, please contact:[address] [phone] Code Status Date Activated Date Inactivated Comments Full Code 02/13/2019 5:53 AM 02/15/2019 3:12 PM This code status was determined by: Patient Full Code 02/13/2019 5:53 AM 02/13/2019 5:53 AM This code status was determined by: Patient Full Code 03/27/2018 6:47 AM 03/28/2018 2:46 PM This code status was determined by: Patient
--- NOTE | 2019-05-24 14:14 | RAD REPORT ---
EXAM DESCRIPTION: CT - Abdomen Pelvis W Contrast - 05/24/2019 12:42 pm CLINICAL HISTORY: Abdominal pain, patient has history of malignancy. Due to technical malfunction this no reporting was immediately available and images were also limited in availability. No history could be provided further detail in the malignancy. Preliminary findings provided when images could be reviewed. Final dictation was delayed. COMPARISON: None. TECHNIQUE: Biphasic, helical CT imaging of the abdomen and pelvis was performed following 100 ml non -ionic IV contrast. Oral contrast was given. All CT scans are performed using dose optimization technique as appropriate and may include automated exposure control or mA/KV adjustment according to patient size. FINDINGS: Large pleural effusion is present on the right incompletely evaluated. This is partially l oculated. Numerous pleural-based areas of nodularity and masslike density seen. Several small pulmona ry nodules are identified. Chest is only partially imaged and full extent of thoracic malignancy kendall ot be made on this study. No pericardial effusion. The liver, spleen, and pancreas show no suspicious findings. Gallbladder is absent. No biliary tree d ilatation. Symmetric renal function is seen with no hydronephrosis or suspicious renal mass. No pyelonephritis o r acute parenchymal process. No bladder abnormalities. No adrenal abnormalities. Stomach and proximal small bowel are normal. There is a 15 centimeter long segment of proximal ileum that shows wall thickening. This may be a peristalsis artifact or reflect mild ileitis. This does not obstruct the flow oral contrast. No acute colon finding. Prominent aortoiliac calcifications are pre sent. No free air, free fluid or inflammatory stranding. No hernia, mass or bulky lymphadenopathy. No suspicious bony findings. IMPRESSION: No bowel obstruction, free air or surgically emergent finding. Segment of proximal ileum shows circumferential wall thickening that may be peristalsis artifact or i leitis. Right-sided thoracic malignant changes are present only partially imaged. The patient apparently has some form of malignancy that is known.
== END 2019-05-24 11:47 | disposition home or self-care (01) ==
LOC: ER 08:00
DX: K52.9 Noninfective gastroenteritis and colitis, unspecified (principal); J91.0 Malignant pleural effusion; C73 Malignant neoplasm of thyroid gland; C34.90 Malignant neoplasm of unspecified part of unspecified bronchus or lung; E03.9 Hypothyroidism, unspecified; Z88.8 Allergy status to other drugs, medicaments and biological substances; Z79.82 Long term (current) use of aspirin
CPT/HCPCS: 96361; 85025; 80048; 36415; 80076; 83690; 74177; 96374; 99284; Q9967; J7030; J2405; 81003; 81015

== ENCOUNTER 2019-10-21 17:09 | Inpatient (IN) | payer OTHER ==
--- OUTSIDE RECORDS SUMMARY | 2019-10-21 17:11 | XMS REPORT | Encounter Summary ---
:1940 Author Care Team Providers Name Role Phone Luis E Armstrong MD Primary Care Provider [phone] Reason for Visit Follow Up Visit Instructions 1. Abdominal pain abdominal pain: care instructions CBC w/ auto diff urinalysis, complete XR, abdomen CMP, serum or plasma amylase + lipase, serum Discussion Note: None recorded. Plan of Care Reminders Provider Appointments None recorded. Lab CBC W/ Auto [facility] Diff 05/29/2019 [facility] (Labs) (Xray) Urinalysis, [facility] Complete 05/29/2019 [facility] (Labs) (Xray) CMP, Serum [facility] or Plasma 05/29/2019 [facility] (Labs) (Xray) Amylase + [facility] Lipase, Serum 05/29/2019 [facility] (Labs) (Xray) Referral None recorded. Procedures None recorded. Surgeries None recorded. Imaging XR, Abdomen [facility] 05/29/2019 [facility] (Scheduling) Medications Name Start Date Advair Diskus 500 mcg-50 mcg/dose powder for inhalation 04/29/2019 aspirin 81 mg tablet,delayed release Take 1 tablet every day by oral route. atorvastatin 40 mg tablet clopidogrel 75 mg tablet Take 1 tablet every day by oral route. fluocinonide 0.05 % topical solution levothyroxine 125 mcg tablet nitroglycerin 0.4 mg sublingual tablet ondansetron 4 mg disintegrating tablet Pepcid Stool Softener sulfamethoxazole 400 mg-trimethoprim 80 mg tablet Take 2 tablets every 12 hours by oral route. sulfamethoxazole 800 mg-trimethoprim 160 mg tablet tramadol 50 mg tablet Medications Administered None recorded. Vitals Height Weight BMI Blood Pressure 63 in 144 lbs 16 oz 25.7 kg/m2 96/64 mm[Hg] Lab Results Date Name Specimen Result Interpretation Description Value Range Status Address 04/29/2019 Culture, Results Final [facility] (Lab): [address] [facility] 04/29/2019 Antibiotic Susceptible Gentamicin Islt <4 Not [place] Sensitivity Chris ug/ Reported [facility] (Lab): [address] [place] [address] Susceptible Cefazolin Islt <8 Not [place] Chris ug/ [facility]orted [facility] ([facility]): [address] [place] [address] Susceptible Oxacillin Islt 0.5 Not [place] Chris ug/ Reported [facility] ([facility]): [address] [place] [address] Susceptible Penicillin Islt <0. Not [place] Chris 03 Reported [facility] (Lab): [address] [place] [address] Susceptible Tmp Smx Islt =0. Not [place] Chris 5 Reported [facility] (Lab): [address] [place] [address] Susceptible Tetracycline <4 Not [place] Islt Chris ug/ Reported [facility] ([facility]): [address] [place] [address] Susceptible Amoxicillin+cla =4/ Not [place] v Islt Chris 2 Reported [facility] (Lab): [address] [place] [address] Susceptible Clindamycin <0. Not [place] Islt Chris 5 Reported [facility] (Lab): [address] [place] [address] Susceptible Nitrofurantoin <32 Not [place] Islt Chris ug/ Reported [facility] (Lab): [address] [place] [address] Susceptible Erythromycin <0. Not [place] Islt Chris 5 Reported [facility] (Lab): [address] [place] [address] Susceptible Vancomycin Islt 1 Not [place] Chris ug/ Reported [facility] ([facility]): [address] [place] [address] Susceptible Levofloxacin <2 Not [place] Islt Chris ug/ Reported [facility] (Lab): [address] [place] [address] Susceptible Ceftriaxone <8 Not [place] Islt Chris ug/ Reported [facility] ([facility]): [address] [place] [address] Susceptible Imipenem Islt <4 Not [place] Chris ug/ Reported [facility] (Lab): [address] [place] [address] Susceptible Ampicillin+sulb =8/ Not [place] ac Islt Chris 4 Reported [facility] (Lab): [address] [place] [address] Susceptible Linezolid Islt <1 Not [place] Chris ug/ Reported [facility] (Lab): [address] [place] [address] Susceptible Meropenem Islt <4 Not [place] Chris ug/ Reported [facility] (Lab): [address] [place] [address] Susceptible Daptomycin Islt <0. Not [place] Chris 5 Reported [facility] (Lab): [address] [place] [address] Susceptible Rifampin Islt <1 Not [place] Chris ug/ Reported [facility] (Lab): [address] [place] [address] Allergies Code Code System Name Reaction Severity [...] Laparoscopic (Surg) Thyroid Surgery Information not available 05/29/2019 XR, Abdomen [facility] (Scheduling) [address] [place] [id number] ([address]) Vaccine List Vaccine Type influenza, seasonal, injectable 07/21/2014 Social History Tobacco Smoking Status Former Smoker Past Encounters 05/29/2019 Abdominal Pain Luis E Armstrong MD: [address], [address], [place] [address], Ph. [phone] 04/29/2019 Paronychia of Finger Luis E Armstrong MD: [address] [facility], [address], [place] [address], Ph. History of Present Illness Note: CC abd pain with n/v<div>hpi 1 wk ago pt had sudden onset of epigastric pain, went to ed in [place] and w/up neg dx gastritis given n/v meds and antibiotic</div><div>since then pt has had very little to eat due to dry heaves and pain has not been as severe but still present</div& gt;<div>ros</div><div>gen above</div><div>cv neg& lt;/div><div>resp no sob</div><div>gi above</div> Review of Systems: ROS as noted in the HPI Review of Systems None recorded. Physical Exam Dr. Armstrong Brief Adult Exam - M/F Reported By: Patient Constitutional: General Appearance: healthy-appearing, well-nourished, well-developed. Level of Distress: mild distress. Ambulation: ambulating normally Lungs: Auscultation: breath sounds normal, good air movement, CTA except as noted, no wheezing, no rales/crackles, no rhonchi Cardiovascular: Heart Auscultation: RRR Abdomen: Bowel Sounds: increased. Inspection and Palpation: soft, non-distended, no tenderness, no rebound tenderness
--- OUTSIDE RECORDS SUMMARY | 2019-10-21 17:11 | XMS REPORT ---
:1940 Author Organization [facility] Address [address] [place] [address] [address]. [address] [place] [address] Care Team Providers Name Role Phone TRACEY MI Unavailable Unavailable CATIE MAYA Unavailable Unavailable Problems This patient has no known problems. Allergies, Adverse Reactions, Alerts This patient has no known allergies or adverse reactions. Medications This patient has no known medications. Results Test Description Test Time Test Comments Text Results Atomic Results Result Comments TISSUE EXAM 2019-03-02 14:54:00 Surgical Pathology Report Case: [id number] Authorizing Provider: Tracey Mi MD Collected: 02/13/2019 1036 Ordering Location: [facility] Received: 02/13/2019 1537 PERIOPERATIVE SERVICES Pathologist: Wilfred Paz MD Specimen: Plaque, Right carotic plaque ARTERY, RIGHT CAROTID, ENDARTERECTOMY:CALCIFIC ATHEROSCLEROTIC PLAQUE WITH INTRAPLAQUE HEMORRHAGE Signing Pathologist Direct Phone Line: [phone] signed by Wilfred Paz MD on 03/02/2019 at 2:54 [id number]; [id number] of right carotid artery Right carotid plaque Specimen is received in saline labeled with the patient's information and labeled "right carotid plaque" and consists of a tubular shaped segment of calcified tissue measuring 2.6 cm in length and 0.6 cm in diameter. Customer Assistance Associate sections are submitted in A1 for decalcification. CG/ewPerformed BASIC METABOLIC PANEL 2019-02-15 07:02:00 Test Item Value Reference Range Comments SODIUM (BEAKER) (test 137 meq/L 136-145 itwg=474) POTASSIUM (BEAKER) (test 4.0 meq/L 3.5-5.1 Specimen slightly hemolyzed lulj=542) CHLORIDE (BEAKER) (test 109 meq/L 98-107 wpik=011) CO2 (BEAKER) (test 19 meq/L 22-29 pfhv=551) BLOOD UREA NITROGEN 20 mg/dL 7-21 (BEAKER) (test nbjx=905) CREATININE (BEAKER) (test 0.57 mg/dL 0.57-1.25 Specimen slightly hemolyzed sjxm=375) GLUCOSE RANDOM (BEAKER) 100 mg/dL 70-105 (test zxkr=769) CALCIUM (BEAKER) (test 8.5 mg/dL 8.4-10.2 ebxm=011) EGFR (BEAKER) (test 103 mL/min/1.73 sq m ESTIMATED GFR IS NOT wzkd=1292) ACCURATE CREATININE CLEARANCE IN PREDICTING GLOMERULAR FILTRATION RATE. ESTIMATED GFR IS NOT APPLICABLE FOR DIALYSIS PATIENTS. CBC (HEMOGRAM ONLY)2019-02-15 06:45:00 Test Item Value Reference Range Comments WHITE BLOOD CELL COUNT 6.7 K/ L 3.5-10.5 (BEAKER) (test ajcl=560) RED BLOOD CELL COUNT (BEAKER) 4.00 M/ L 3.93-5.22 (test xopz=212) HEMOGLOBIN (BEAKER) (test 11.5 GM/DL 11.2-15.7 bfoh=225) HEMATOCRIT (BEAKER) (test 38.8 % 34.1-44.9 xrua=677) MEAN CORPUSCULAR VOLUME 97.0 fL 79.4-94.8 Discordant results compared (BEAKER) (test bfhq=805) to previous result; clinical correlation required. MEAN CORPUSCULAR HEMOGLOBIN 28.8 pg 25.6-32.2 (BEAKER) (test gqsa=896) MEAN CORPUSCULAR HEMOGLOBIN 29.6 GM/DL 32.2-35.5 CONC (BEAKER) (test lrxv=740) RED CELL DISTRIBUTION WIDTH 13.8 % 11.7-14.4 (BEAKER) (test vfzn=667) PLATELET COUNT (BEAKER) (test 168 K/CU MM 150-450 zyco=817) MEAN PLATELET VOLUME (BEAKER) 10.5 fL 9.4-12.3 (test gkmz=638) NUCLEATED RED BLOOD CELLS 0 /100 WBC 0-0 (BEAKER) (test kubv=824) PLATELET AGGREGATION: FUNCTION [id number] 11:39:00 Test Item Value Reference Range Comments WEAK ADP RESULT(BEAKER) (test 62 % 60-91 vuac=7801) PLATELET FUNCTION SCREEN 60-100% indicates normal INTERP (BEAKER) (test platelet function wywc=0084) GHGU-LJMFPIAZVRF-9598 (BEAKER) Axel Park M.D. (electonic (test dtkp=3203) signature) PLATELET COUNT AGG (BEAKER) 184 K/CU MM 150-450 (test cqgb=4658) Platelet Function Screen results may be falsely low with platelet counts<100, 000/cu mm.CBC W/PLT COUNT & AUTO [id number] 06:32:00 Test Item Value Reference Range Comments WHITE BLOOD CELL COUNT (BEAKER) (test pheu=123) 7.8 K/ L 3.5-10.5 RED BLOOD CELL COUNT (BEAKER) (test epxj=378) 3.93 M/ L 3.93-5.22 HEMOGLOBIN (BEAKER) (test jtsp=974) 11.6 GM/DL 11.2-15.7 HEMATOCRIT (BEAKER) (test hqqu=665) 34.9 % 34.1-44.9 MEAN CORPUSCULAR VOLUME (BEAKER) (test vopd=385) 88.8 fL 79.4-94.8 MEAN CORPUSCULAR HEMOGLOBIN (BEAKER) (test 29.5 pg 25.6-32.2 ygmv=025) MEAN CORPUSCULAR HEMOGLOBIN CONC (BEAKER) (test 33.2 GM/DL 32.2-35.5 vjbs=431) RED CELL DISTRIBUTION WIDTH (BEAKER) (test 13.2 % 11.7-14.4 jniy=643) PLATELET COUNT (BEAKER) (test zrou=415) 172 K/CU MM 150-450 MEAN PLATELET VOLUME (BEAKER) (test oznw=596) 10.5 fL 9.4-12.3 NUCLEATED RED BLOOD CELLS (BEAKER) (test 0 /100 WBC 0-0 eplb=998) NEUTROPHILS RELATIVE PERCENT (BEAKER) (test 86 % abtn=489) LYMPHOCYTES RELATIVE PERCENT (BEAKER) (test 7 % tyzz=725) MONOCYTES RELATIVE PERCENT (BEAKER) (test 6 % gheh=308) EOSINOPHILS RELATIVE PERCENT (BEAKER) (test 0 % jzei=239) BASOPHILS RELATIVE PERCENT (BEAKER) (test 0 % zdlg=391) NEUTROPHILS ABSOLUTE COUNT (BEAKER) (test 6.71 K/ L 1.56-6.13 xisb=104) LYMPHOCYTES ABSOLUTE COUNT (BEAKER) (test 0.53 K/ L 1.18-3.74 ized=276) MONOCYTES ABSOLUTE COUNT (BEAKER) (test 0.49 K/ L 0.24-0.36 kupu=287) EOSINOPHILS ABSOLUTE COUNT (BEAKER) (test 0.01 K/ L 0.04-0.36 hggz=785) BASOPHILS ABSOLUTE COUNT (BEAKER) (test 0.02 K/ L 0.01-0.08 vvmx=107) IMMATURE GRANULOCYTES-RELATIVE PERCENT (BEAKER) 0 % 0-1 (test wgwn=5169) [id number] 05:53:00 Test Item Value Reference Range Comments PHOSPHORUS (BEAKER) (test vufv=499) 3.4 mg/dL 2.3-4.7 [id number] 05:53:00 Test Item Value Reference Range Comments MAGNESIUM (BEAKER) (test yczg=651) 1.9 mg/dL 1.6-2.6 BASIC METABOLIC [id number] 05:53:00 Test Item Value Reference Range Comments SODIUM (BEAKER) (test 141 meq/L 136-145 rdoy=652) POTASSIUM (BEAKER) (test 3.1 meq/L 3.5-5.1 txyu=003) CHLORIDE (BEAKER) (test 107 meq/L 98-107 znuw=067) CO2 (BEAKER) (test 25 meq/L 22-29 cgnl=665) BLOOD UREA NITROGEN 13 mg/dL 7-21 (BEAKER) (test sxrq=252) CREATININE (BEAKER) (test 0.51 mg/dL 0.57-1.25 jyfw=979) GLUCOSE RANDOM (BEAKER) 108 mg/dL 70-105 (test oxqi=103) CALCIUM (BEAKER) (test 8.9 mg/dL 8.4-10.2 aqri=305) EGFR (BEAKER) (test 117 mL/min/1.73 sq m ESTIMATED GFR IS NOT dfhs=2009) ACCURATE CREATININE CLEARANCE IN PREDICTING GLOMERULAR FILTRATION RATE. ESTIMATED GFR IS NOT APPLICABLE FOR DIALYSIS PATIENTS. BLOOD GAS, [id number] 05:39:00 Test Item Value Reference Range Comments PH ARTERIAL (BEAKER) (test kixm=645) 7.43 7.35-7.45 PCO2 ARTERIAL (BEAKER) (test jerk=538) 37 mmHg 35-45 PO2 ARTERIAL (BEAKER) (test bbrp=583) 153 mmHg 80-90 O2 SATURATION ARTERIAL (BEAKER) (test cpip=629) 99.0 % 96.0-97.0 HCO3 ARTERIAL (BEAKER) (test mqjl=297) 24 mmol/L 21-29 BASE EXCESS ARTERIAL (BEAKER) (test fvaj=187) 0.0 mmol/L -2.0-3.0 PATIENT TEMPERATURE (BEAKER) (test iids=1918) 37.3 C FIO2 (BEAKER) (test xpyb=1627) 28.0 % BLOOD GAS, [id number] 23:56:00 Test Item Value Reference Range Comments PH ARTERIAL (BEAKER) (test rlyr=087) 7.44 7.35-7.45 PCO2 ARTERIAL (BEAKER) (test hlei=963) 37 mmHg 35-45 PO2 ARTERIAL (BEAKER) (test rkdg=304) 54 mmHg 80-90 O2 SATURATION ARTERIAL (BEAKER) (test vspj=306) 89.3 % 96.0-97.0 HCO3 ARTERIAL (BEAKER) (test lfgx=304) 24 mmol/L 21-29 BASE EXCESS ARTERIAL (BEAKER) (test itqd=927) 0.6 mmol/L -2.0-3.0 PATIENT TEMPERATURE (BEAKER) (test jpql=6738) 37.2 C FIO2 (BEAKER) (test hcwx=8451) 21.0 % GLUCOSE-STAT [id number] 23:56:00 Test Item Value Reference Range Comments GLUCOSE RANDOM (BEAKER) (test qvmu=635) 116 mg/dL 70-110 POCT-GLUCOSE [id number] 18:31:00 Test Item Value Reference Range Comments POC-GLUCOSE METER (BEAKER) 133 mg/dL 70-110 TESTED AT [facility] [address] [place] [address] (test ywsy=1339) [facility] [address] RAD, CHEST, 1 VIEW, NON [id number] 14:05:00Reason for exam:->post op carotidShould this be [...] MDReport Verified Date/Time: 02/13/2019 14:05:47 Reading Location: [facility] Radiology Reading Room LACTIC ACID, [id number] 13:39:00 Test Item Value Reference Range Comments LACTATE BLOOD ARTERIAL (2) (BEAKER) (test 0.9 mmol/L 0.5-2.2 moxg=9178) BASIC METABOLIC [id number] 13:07:00 Test Item Value Reference Range Comments SODIUM (BEAKER) (test 139 meq/L 136-145 vzag=254) POTASSIUM (BEAKER) (test 3.3 meq/L 3.5-5.1 vapc=793) CHLORIDE (BEAKER) (test 109 meq/L 98-107 ltpz=891) CO2 (BEAKER) (test 22 meq/L 22-29 pfax=637) BLOOD UREA NITROGEN 9 mg/dL 7-21 (BEAKER) (test bmum=750) CREATININE (BEAKER) (test 0.56 mg/dL 0.57-1.25 uceo=412) GLUCOSE RANDOM (BEAKER) 142 mg/dL 70-105 (test quim=254) CALCIUM (BEAKER) (test 7.9 mg/dL 8.4-10.2 lupy=409) EGFR (BEAKER) (test 105 mL/min/1.73 sq m ESTIMATED GFR IS NOT ksqa=9553) ACCURATE CREATININE CLEARANCE IN PREDICTING GLOMERULAR FILTRATION RATE. ESTIMATED GFR IS NOT APPLICABLE FOR DIALYSIS PATIENTS. [id number] 13:01:00 Test Item Value Reference Range Comments PHOSPHORUS (BEAKER) (test cqzb=395) 3.4 mg/dL 2.3-4.7 [id number] 13:01:00 Test Item Value Reference Range Comments MAGNESIUM (BEAKER) (test zzrn=029) 1.8 mg/dL 1.6-2.6 [id number] 13:00:00 Test Item Value Reference Range Comments PROTIME (BEAKER) (test aebe=955) 15.3 seconds 11.7-14.7 INR (BEAKER) (test lkbf=288) 1.2 <=5.9 PARTIAL THROMBOPLASTIN TIME (BEAKER) (test 27.8 seconds 22.5-36.0 dthr=339) RECOMMENDED COUMADIN/WARFARIN INR THERAPY RANGESSTANDARD DOSE: 2.0 - 3.0 Includes: PROPHYLAXIS forvenous thrombosis, systemic embolization; TREATMENT for venous thrombosis and/or pulmonary embolus.HIGH RISK: Target INR is 2.5-3.5 for patients with mechanical heart valves.CBC (HEMOGRAM ONLY)2019-02-13 12:45:00 Test Item Value Reference Range Comments WHITE BLOOD CELL COUNT (BEAKER) (test kwbe=052) 7.7 K/ L 3.5-10.5 RED BLOOD CELL COUNT (BEAKER) (test amcl=084) 3.82 M/ L 3.93-5.22 HEMOGLOBIN (BEAKER) (test dsqp=712) 11.3 GM/DL 11.2-15.7 HEMATOCRIT (BEAKER) (test txfb=852) 34.0 % 34.1-44.9 MEAN CORPUSCULAR VOLUME (BEAKER) (test frhp=039) 89.0 fL 79.4-94.8 MEAN CORPUSCULAR HEMOGLOBIN (BEAKER) (test 29.6 pg 25.6-32.2 nrjg=637) MEAN CORPUSCULAR HEMOGLOBIN CONC (BEAKER) (test 33.2 GM/DL 32.2-35.5 twje=647) RED CELL DISTRIBUTION WIDTH (BEAKER) (test 13.5 % 11.7-14.4 cdjl=471) PLATELET COUNT (BEAKER) (test nvly=513) 159 K/CU MM 150-450 MEAN PLATELET VOLUME (BEAKER) (test mxyq=569) 10.2 fL 9.4-12.3 NUCLEATED RED BLOOD CELLS (BEAKER) (test 0 /100 WBC 0-0 axhj=689) BLOOD GAS, [id number] 12:39:00 Test Item Value Reference Range Comments PH ARTERIAL (BEAKER) (test pibk=153) 7.37 7.35-7.45 PCO2 ARTERIAL (BEAKER) (test gmlj=358) 40 mmHg 35-45 PO2 ARTERIAL (BEAKER) (test nmgk=937) 99 mmHg 80-90 O2 SATURATION ARTERIAL (BEAKER) (test dula=664) 97.5 % 96.0-97.0 HCO3 ARTERIAL (BEAKER) (test uxrz=284) 23 mmol/L 21-29 BASE EXCESS ARTERIAL (BEAKER) (test vbwl=857) -2.7 mmol/L -2.0-3.0 PATIENT TEMPERATURE (BEAKER) (test sgtd=5265) 36.5 C FIO2 (BEAKER) (test znqw=4869) 28.0 % [id number] 06:48:00 Test Item Value Reference Range Comments MAGNESIUM (BEAKER) (test cvhs=283) 1.9 mg/dL 1.6-2.6 BASIC METABOLIC [id number] 06:48:00 Test Item Value Reference Range Comments SODIUM (BEAKER) (test 142 meq/L 136-145 bbrn=629) POTASSIUM (BEAKER) (test 3.5 meq/L 3.5-5.1 xtsh=692) CHLORIDE (BEAKER) (test 108 meq/L 98-107 kvml=631) CO2 (BEAKER) (test 25 meq/L 22-29 ayiz=020) BLOOD UREA NITROGEN 14 mg/dL 7-21 (BEAKER) (test nsyv=078) CREATININE (BEAKER) (test 0.63 mg/dL 0.57-1.25 rnaf=689) GLUCOSE RANDOM (BEAKER) 111 mg/dL 70-105 (test wkis=250) CALCIUM (BEAKER) (test 9.4 mg/dL 8.4-10.2 kofr=902) EGFR (BEAKER) (test 91 mL/min/1.73 sq m ESTIMATED GFR IS NOT wxxw=7111) ACCURATE CREATININE CLEARANCE IN PREDICTING GLOMERULAR FILTRATION RATE. ESTIMATED GFR IS NOT APPLICABLE FOR DIALYSIS PATIENTS. CBC W/PLT COUNT & AUTO [id number] 06:36:00 Test Item Value Reference Range Comments WHITE BLOOD CELL COUNT (BEAKER) (test rwub=387) 5.8 K/ L 3.5-10.5 RED BLOOD CELL COUNT (BEAKER) (test buku=906) 4.31 M/ L 3.93-5.22 HEMOGLOBIN (BEAKER) (test rdyb=485) 12.7 GM/DL 11.2-15.7 HEMATOCRIT (BEAKER) (test tjid=951) 38.1 % 34.1-44.9 MEAN CORPUSCULAR VOLUME (BEAKER) (test pcuf=171) 88.4 fL 79.4-94.8 MEAN CORPUSCULAR HEMOGLOBIN (BEAKER) (test 29.5 pg 25.6-32.2 wifc=758) MEAN CORPUSCULAR HEMOGLOBIN CONC (BEAKER) (test 33.3 GM/DL 32.2-35.5 pkfd=342) RED CELL DISTRIBUTION WIDTH (BEAKER) (test 13.2 % 11.7-14.4 gydt=447) PLATELET COUNT (BEAKER) (test qzms=526) 195 K/CU MM 150-450 MEAN PLATELET VOLUME (BEAKER) (test gjdq=046) 10.4 fL 9.4-12.3 NUCLEATED RED BLOOD CELLS (BEAKER) (test 0 /100 WBC 0-0 tdhj=196) NEUTROPHILS RELATIVE PERCENT (BEAKER) (test 79 % bovm=991) LYMPHOCYTES RELATIVE PERCENT (BEAKER) (test 10 % eipb=353) MONOCYTES RELATIVE PERCENT (BEAKER) (test 8 % ahze=513) EOSINOPHILS RELATIVE PERCENT (BEAKER) (test 2 % gfgl=149) BASOPHILS RELATIVE PERCENT (BEAKER) (test 1 % niia=597) NEUTROPHILS ABSOLUTE COUNT (BEAKER) (test 4.57 K/ L 1.56-6.13 wgnz=796) LYMPHOCYTES ABSOLUTE COUNT (BEAKER) (test 0.58 K/ L 1.18-3.74 vdkx=191) MONOCYTES ABSOLUTE COUNT (BEAKER) (test 0.45 K/ L 0.24-0.36 inwg=050) EOSINOPHILS ABSOLUTE COUNT (BEAKER) (test 0.10 K/ L 0.04-0.36 qbbd=335) BASOPHILS ABSOLUTE COUNT (BEAKER) (test 0.06 K/ L 0.01-0.08 wxje=691) IMMATURE GRANULOCYTES-RELATIVE PERCENT (BEAKER) 0 % 0-1 (test cwtt=5690) POCT-GLUCOSE [id number] 05:55:00 Test Item Value Reference Range Comments POC-GLUCOSE METER (BEAKER) 103 mg/dL 70-110 TESTED AT [facility] [address] [facility] (test nfkr=9992) [facility] [address] PROTHROMBIN TIME/[id number] 13:00:00 Test Item Value Reference Range Comments PROTIME (BEAKER) (test sekx=077) 13.4 seconds 11.7-14.7 INR (BEAKER) (test chax=706) 1.0 <=5.9 RECOMMENDED COUMADIN/WARFARIN INR THERAPY RANGESSTANDARD DOSE: 2.0 - 3.0 Includes: PROPHYLAXIS forvenous thrombosis, systemic embolization; TREATMENT for venous thrombosis and/or pulmonary embolus.HIGH RISK: Target INR is 2.5-3.5 for patients with mechanical heart valves.BASIC METABOLIC [id number] 07:26: 00 Test Item Value Reference Range Comments SODIUM (BEAKER) (test 139 meq/L 136-145 ywao=965) POTASSIUM (BEAKER) (test 4.3 meq/L 3.5-5.1 iwop=944) CHLORIDE (BEAKER) (test 110 meq/L 98-107 swyg=675) CO2 (BEAKER) (test 24 meq/L 22-29 hjdg=672) BLOOD UREA NITROGEN 21 mg/dL 7-21 (BEAKER) (test jvfu=746) CREATININE (BEAKER) (test 0.65 mg/dL 0.57-1.25 lndd=941) GLUCOSE RANDOM (BEAKER) 106 mg/dL 70-105 (test mqnr=708) CALCIUM (BEAKER) (test 8.6 mg/dL 8.4-10.2 oepe=226) EGFR (BEAKER) (test 88 mL/min/1.73 sq m ESTIMATED GFR IS NOT dlbr=7970) ACCURATE CREATININE CLEARANCE IN PREDICTING GLOMERULAR FILTRATION RATE. ESTIMATED GFR IS NOT APPLICABLE FOR DIALYSIS PATIENTS. [id number] 07:09:00 Test Item Value Reference Range Comments MAGNESIUM (BEAKER) (test pmkh=253) 2.7 mg/dL 1.6-2.6 CBC (HEMOGRAM ONLY)2018-03-28 05:50:00 Test Item Value Reference Range Comments WHITE BLOOD CELL COUNT (BEAKER) (test vrdi=427) 6.5 K/ L 3.5-10.5 RED BLOOD CELL COUNT (BEAKER) (test cfjc=632) 3.90 M/ L 3.93-5.22 HEMOGLOBIN (BEAKER) (test ieho=328) 11.1 GM/DL 11.2-15.7 HEMATOCRIT (BEAKER) (test roqv=257) 34.7 % 34.1-44.9 MEAN CORPUSCULAR VOLUME (BEAKER) (test zcqs=576) 89.0 fL 79.4-94.8 MEAN CORPUSCULAR HEMOGLOBIN (BEAKER) (test 28.5 pg 25.6-32.2 xbnd=370) MEAN CORPUSCULAR HEMOGLOBIN CONC (BEAKER) (test 32.0 GM/DL 32.2-35.5 fqvs=956) RED CELL DISTRIBUTION WIDTH (BEAKER) (test 13.9 % 11.7-14.4 kpka=194) PLATELET COUNT (BEAKER) (test leop=736) 194 K/CU MM 150-450 MEAN PLATELET VOLUME (BEAKER) (test akzc=881) 10.4 fL 9.4-12.3 NUCLEATED RED BLOOD CELLS (BEAKER) (test 0 /100 WBC 0-0 zvqd=650) BASIC METABOLIC [id number] 18:24:00 Test Item Value Reference Range Comments SODIUM (BEAKER) (test 140 meq/L 136-145 arwa=652) POTASSIUM (BEAKER) (test 2.8 meq/L 3.5-5.1 aese=270) CHLORIDE (BEAKER) (test 115 meq/L 98-107 vrue=345) CO2 (BEAKER) (test 21 meq/L 22-29 pivs=059) BLOOD UREA NITROGEN 13 mg/dL 7-21 (BEAKER) (test vwek=243) CREATININE (BEAKER) (test 0.49 mg/dL 0.57-1.25 qnna=037) GLUCOSE RANDOM (BEAKER) 97 mg/dL 70-105 (test teqy=196) CALCIUM (BEAKER) (test 6.3 mg/dL 8.4-10.2 qrpv=553) EGFR (BEAKER) (test 122 mL/min/1.73 sq m ESTIMATED GFR IS NOT exog=2020) ACCURATE CREATININE CLEARANCE IN PREDICTING GLOMERULAR FILTRATION RATE. ESTIMATED GFR IS NOT APPLICABLE FOR DIALYSIS PATIENTS. [id number] 18:20:00 Test Item Value Reference Range Comments PHOSPHORUS (BEAKER) (test lquu=617) 3.3 mg/dL 2.3-4.7 [id number] 18:20:00 Test Item Value Reference Range Comments MAGNESIUM (BEAKER) (test ofmt=438) 1.6 mg/dL 1.6-2.6 [id number] 11:48:00 Test Item Value Reference Range Comments ACTIVATED CLOTTING TIME 241 sec TESTED AT [facility] [address]) (test xdux=181) [place] [address]
[2019-10-21] MEDS ORDERED: ALBUTEROL 2.5 MG/3 ML NEB SOL ONE (18:02)
[2019-10-21] MEDS ORDERED: METHYLPREDNISOLONE 125 MG INJ ONE (18:02)
[2019-10-21] MEDS ORDERED: IPRATROPIUM BROM 0.5MG/2.5ML ONE (18:02)
[2019-10-21] MEDS ORDERED: NA CHLORIDE 0.9% 2,000 ML ONE (18:02)
[2019-10-21] MEDS ORDERED: CEFTRIAXONE/SWI 1gm 1 GM/10 ML SYR ONE (18:03)
[2019-10-21 18:07] LABS: Absolute Lymphocytes (CBC) 0.3 K/uL (0.7-4.9); Basophils % 1.2 % (0-1.3); Hematocrit 30.7 % (36.0-45.0); Lymphocytes % 6.7 % (15.3-44.8); MPV 8.8 fL (7.6-11.3); RBC Red Blood Cell Count 4.03 M/uL (3.86-4.86)
[2019-10-21 18:15] LABS: Protime INR 1.05
[2019-10-21 18:27] LABS: ALT/SGPT 92 U/L (12-78); AST/SGOT 207 U/L (15-37); Albumin 2.5 g/dL (3.4-5.0); Alkaline Phosphatase 189 U/L (45-117); BUN Blood Urea Nitrogen 20 mg/dL (7-18); Bicarbonate 29 mmol/L (21-32); Bilirubin Direct 0.2 mg/dL (0-0.2); Bilirubin Total 0.5 mg/dL (0.2-1.0); CKMB Creatine Kinase MB 1.7 ng/mL (0.3-3.6); Creatine Phosphokinase 134 U/L (26-192); Glucose Level 133 mg/dL (74-106); Lipase 80 U/L (73-393); Magnesium 1.8 mg/dL (1.8-2.4); Potassium 3.3 mmol/L (3.5-5.1); Protein, Total 6.1 g/dL (6.4-8.2); Sodium Level 135 mmol/L (136-145); Troponin (Emerg Dept Use Only) 0.03 ng/mL (0.0-0.045)
--- NOTE | 2019-10-21 19:23 | RAD REPORT ---
EXAM DESCRIPTION: RAD - Chest Single View - 10/21/2019 5:59 pm CLINICAL HISTORY: Cough and congestion, shortness of breath COMPARISON: February 2018 TECHNIQUE: AP portable chest image was obtained 1756 hours . FINDINGS: Left lung field is clear of acute finding. Prominent interstitial pattern is stable. Right upper lung field is clear. Fullness of the right hilum is present. There is been prior lung surgery on the right. Right pleural effusion is present. Heart size is normal. Trachea is midline. No pneumot horax. No acute bony abnormality seen. No acute aortic findings suspected. IMPRESSION: Small a moderate right-sided pleural effusion. The could be infiltrate and/ or atelectas is at the right base. Postsurgical changes to the right hilum and right hemithorax.
[2019-10-21 20:00] LABS: Urine Blood TRACE (NEG); Urine Glucose NEGATIVE (NEG); Urine Protein NEGATIVE (NEG); Urine pH 5.5 (5.0-7.0)
[2019-10-21 20:04] LABS: Urine Bacteria NONE SEEN /HPF (<20); Urine Culture Reflex Order NOT NEEDED; Urine RBC NONE SEEN /HPF (NONE SEEN)
[2019-10-21] MEDS ORDERED: NA CHLORIDE 0.9% 250 ML ONE (20:13)
--- NOTE | 2019-10-21 20:52 | RAD REPORT ---
EXAM DESCRIPTION: CT - Chest For Pe Angio - 10/21/2019 8:31 pm CLINICAL HISTORY: CONGESTIONshortness of breath, history of thyroid carcinoma with metastatic lung disease COMPARISON: Chest Single View dated 10/21/2019; Abdomen Pelvis W Contrast dated 05/24/2019 TECHNIQUE: Dynamically enhanced 3 mm thick images of the chest were obtained during administration o f approximately 150mL Isovue 370 IV contrast. Coronal and oblique MIP reconstruction images were gene rated and reviewed. Exam utilizes a protocol to evaluate the pulmonary arterial tree. All CT scans are performed using dose optimization technique as appropriate and may include automated exposure control or mA/KV adjustment according to patient size. FINDINGS: No pulmonary emboli are identified. The aorta as imaged shows no acute or suspicious finding. No pericardial thickening or effusion. Aort ic calcifications are present. Multiple 8 mm or less left-sided pulmonary nodules are present. The pulmonary nodules in the lower le ft chest are not changed from May 2019. No left-sided pleural effusion. Interstitial markings are mildly prominent in the lower left lung field. Patchy mucosal thickening or mucous changes are presen t in segmental branch bronchi left lower lobe. Approximately 2.4 centimeter pleural abutting mass den sity is present in the medial lower right lung field similar to the prior study. Loculated pleural fl uid collections in the right base is are similar to comparison. Numerous areas of pleural nodularity in the right are not clearly different. Partial atelectasis of the right lower lobe noted. Right-side d pleural fluid is similar to May. No pneumothorax. No new or enlarging mediastinal or hilar mass. No chest wall masses or abnormal axillary lymphadenopa thy. IMPRESSION: No pulmonary emboli identified. Right-sided partially loculated pleural effusion, right-sided pleural based masses and bilateral lung parenchymal nodules are not substantially different from the comparative images on a CT abdomen from May 2019.
--- NOTE | 2019-10-21 22:14 | ER ---
Nurse's Notes [facility] Name: Jeanne Richter Age: 79 yrs Sex: Female : 1940 Arrival Date: 10/21/2019 Time: 17:09 Bed 19 Private MD: Diagnosis: Acute dyspnea. Right pleural effusion. Hypotension. Thyroid Ca with metastasis to the lung Presentation: 10/21 17:19 Presenting complaint: Patient states: non-productive cough, chills, nausea, SOB, sv wheezing started yesterday. Reports she is on a new chemotherapy for thyroid cancer with mets to the lungs. Transition of care: patient was not received from another setting of care. Onset of symptoms was October 20, 2019. Care prior to arrival: None. 17:19 Method Of Arrival: Wheelchair sv 17:19 Acuity: MAGNOLIA 2 sv 17:19 Initial Sepsis Screen: Does the patient meet any 2 criteria? RR > 20 per min. Systolic sv BP < 90 mmHg. HR > 90 bpm. Yes Does the patient have a suspected source of infection? No. Patient's initial sepsis screen is negative. 21:38 Risk Assessment: Do you want to hurt yourself or someone else? Patient reports no fc desire to harm self or others. Historical: - Allergies: 17:22 aprepitant; sv - PMHx: 17:22 Hypothyroidism; Lung CA; thyroid CA; sv - PSHx: 17:22 Lobectomy; cardiac stents; Carotid surgery; sv - Immunization history:: Adult Immunizations up to date. - Social history:: Patient/guardian denies using alcohol, street drugs, The patient lives with family, Smoking status: Patient/guardian denies using tobacco. - Ebola Screening: : Patient negative for fever greater than or equal to 101.5 degrees Fahrenheit, and additional compatible Ebola Virus Disease symptoms Patient denies exposure to infectious person Patient denies travel to an Ebola-affected area in the 21 days before illness onset. Screenin:30 Abuse screen: Denies threats or abuse. Denies injuries from another. Nutritional sg screening: No deficits noted. Tuberculosis screening: No symptoms or risk factors identified. Never had TB. Fall Risk None identified. Assessment: 17:30 General: Appears in no apparent distress. well groomed, well developed, well nourished, sg Behavior is calm, cooperative, appropriate for age. Pain: Denies pain. Neuro: Level of Consciousness is awake, alert, obeys commands, Oriented to person, place, situation, Media Aid are equal bilaterally Moves all extremities. Speech is normal, Facial symmetry appears normal. Cardiovascular: Heart tones S1 S2 present Capillary refill is brisk in bilateral fingers Patient's skin is warm and dry. Chest pain is denied. Respiratory: Airway is patent Respiratory effort is even, unlabored, Respiratory pattern is regular, symmetrical, Breath sounds are diminished in left posterior lower lobe and right posterior lower lobe. GI: Abdomen is round non-distended, Reports normal bowel habits, tolerance of fluids, tolerance of food. : No signs and/or symptoms were reported regarding the genitourinary system. EENT: No signs and/or symptoms were reported regarding the EENT system. Derm: Skin is pink, warm \T\ dry. Musculoskeletal: Circulation, motion, and sensation intact. Range of motion: intact in all extremities. 17:40 Reassessment: a code sepsis workup has been initiated. sg 18:50 Reassessment: Patient appears in no apparent distress at this time. Patient and/or sg family updated on plan of care and expected duration. Pain level reassessed. Patient is alert, oriented x 3, equal unlabored respirations, skin warm/dry/pink. pt family at bedside at this time. 19:00 General: Appears distressed, uncomfortable, slender, well groomed, Behavior is calm, fc cooperative, appropriate for age. Pain: Denies pain. Neuro: Level of Consciousness is awake, alert, obeys commands, Oriented to person, place, time, situation, Appropriate for age Media Aid are equal bilaterally Moves all extremities. Weakness Speech is normal, Facial symmetry appears normal, Reports weakness Denies blurred vision dizziness, numbness. Cardiovascular: Denies chest pain, Heart tones S1 S2 Capillary refill < 3 seconds Pulses are all present. Rhythm is regular Chest pain is denied. Respiratory: Airway is patent Respiratory effort is labored, shallow, weak, Respiratory pattern is regular, Breath sounds with rhonchi bilaterally. Onset: The symptoms/episode began/occurred gradually, the patient has moderate shortness of breath. GI: Abdomen is round non-distended, Bowel sounds present X 4 quads. : No signs and/or symptoms were reported regarding the genitourinary system. EENT: No signs and/or symptoms were reported regarding the EENT system. Derm: Skin is pink, warm \T\ dry. Musculoskeletal: Circulation, motion, and sensation intact. Capillary refill < 3 seconds, Range of motion: intact in all extremities. 19:15 Reassessment: Dr Rodriguez in to see pt and explain test results. States that pt must fc have Ct Scan for PE. 20:05 Reassessment: Pt's bp down to 79/47. Dr Felix in to see and examine pt. Pt to get bolus, fc go to CT Scan and he will attempt to transfer to [facility]. 20:18 Reassessment: PT has gone to Ct Scan with charge nurse at bedside. fc 20:35 Reassessment: Pt has returned from Ct Scan. fc 21:06 Reassessment: Pt assisted up to bedside commode. fc 21:35 Reassessment: No changes from previously documented assessment. Patient and/or family fc updated on plan of care and expected duration. Pain level reassessed. Patient is alert, oriented x 3, equal unlabored respirations, skin warm/dry/pink. Pt given night chemo medication and Tylenol per okay of Dr Felix. PT remains short of breath but states she is no worse. 22:14 Reassessment: Dr Felix has spoken with pt and she will be admitted here at our facility. fc 22:51 Reassessment: Pt is pending admission to hospital. Pt is aware. fc 23:30 Reassessment: No changes from previously documented assessment. Patient and/or family fc updated on plan of care and expected duration. Pain level reassessed. Patient is alert, oriented x 3, equal unlabored respirations, skin warm/dry/pink. 10/22 00:00 Reassessment: No changes from previously documented assessment. Patient and/or family fc updated on plan of care and expected duration. Pain level reassessed. Patient is alert, oriented x 3, equal unlabored respirations, skin warm/dry/pink. Pt sitting up on side of bed. States she just needs to move around a bit. No change in overall status. Vital Signs: 10/21 17:23 BP 71 / 55; Pulse 99; Resp 30; Temp 99(O); Pulse Ox 92% on 2 lpm NC; Weight 62.6 kg; sv Height 5 ft. 4 in. (162.56 cm); 18:15 BP 99 / 62; Pulse 105; Resp 28; Pulse Ox 96% on 2 lpm NC; sg 20:05 BP 79 / 47; Pulse 98; Resp 20; Pulse Ox 96% on 3 lpm NC; fc 20:36 BP 100 / 59; Pulse 111; Resp 24; Pulse Ox 92% on 3 lpm NC; fc 21:00 BP 89 / 55; Pulse 110; Resp 26; Pulse Ox 94% on 3 lpm NC; fc 21:15 BP 100 / 56; Pulse 105; Resp 26; Temp 98.5; Pulse Ox 95% on 3 lpm NC; Pain 0/10; fc 21:30 BP 93 / 60; Pulse 109; Resp 26; Pulse Ox 95% on 3 lpm NC; fc 21:58 BP 111 / 59; Pulse 101; Resp 24; Pulse Ox 96% on 3 lpm NC; fc 22:30 BP 101 / 56; Pulse 100; Resp 24; Pulse Ox 95% on 3 lpm NC; fc 22:52 BP 91 / 57; Pulse 90; Resp 24; Pulse Ox 96% on 3 lpm NC; Pain 0/10; fc 23:15 BP 90 / 57; Pulse 93; Resp 28; Pulse Ox 96% on 3 lpm NC; Pain 0/10; fc 23:45 BP 95 / 57; Pulse 87; Resp 26; Pulse Ox 96% on 3 lpm NC; Pain 0/10; fc 10/22 00:15 BP 92 / 62; Pulse 85; Resp 24; Temp 98.2; Pulse Ox 97% on 3 lpm NC; Pain 0/10; fc 10/21 17:23 Body Mass Index 23.69 (62.60 kg, 162.56 cm) sv ED Course: 10/21 17:09 Patient arrived in ED. as 17:11 Christian Rodriguez MD is Attending Physician. ma2 17:20 Triage completed. sv 17:24 Arm band placed on. sv 17:27 Justin Sierra, RN is Primary Nurse. sg 17:30 Patient has correct armband on for positive identification. Placed in gown. Bed in low sg position. Side rails up X2. package liner on. Pulse ox on. NIBP on. Warm blanket given. Head of bed elevated. 17:30 Initial lab(s) drawn, by me, sent to lab. First set of blood cultures drawn by me. sg Inserted saline lock: 20 gauge in right wrist, using aseptic technique. Blood collected. 17:45 Second set of blood cultures drawn by me. sg 17:59 Chest Single View XRAY In Process Unspecified. EDMS 19:55 Inserted saline lock: 22 gauge in right antecubital area, using aseptic technique. fc 20:08 Radiology exam delayed due to. nj 20:08 Radiology exam delayed due to Anastasia RN to call when patient is ready to come to CT. nj 20:32 CT Chest For PE Angio In Process Unspecified. EDMS 20:54 Attending Physician role handed off by Christian Rodriguez MD snw 20:54 Lionel Felix MD is Attending Physician. snw 21:37 No provider procedures requiring assistance completed. 22:10 Christian Norton MD is Hospitalizing Provider. pkl 10/22 00:05 Patient admitted, IV remains in place. fc Administered Medications: 10/21 17:52 Drug: NS 0.9% (30 ml/kg) 30 ml/kg Route: IV; Rate: bolus; Site: right wrist; sg 20:00 Follow up: Response: No adverse reaction; No change in condition; IV Status: Completed fc infusion; IV Intake: 2000ml 17:52 Drug: Rocephin 1 grams Route: IV; Rate: calculated rate; Site: right wrist; sg 18:20 Follow up: Response: No adverse reaction; IV Status: Completed infusion sg 17:52 Drug: Albuterol - atroVENT (3:1) (2.5 mg - 0.5 mg) 3 ml Route: Nebulizer; sg 18:30 Follow up: Response: No adverse reaction sg 17:52 Drug: MethylPrednisoLONE 125 mg Route: IVP; Site: right wrist; sg 18:30 Follow up: Response: No adverse reaction sg 20:15 Drug: NS 0.9% 250 ml Route: IV; Rate: bolus; Site: right wrist; fc 21:09 Follow up: Response: No adverse reaction; No change in condition; IV Status: Completed fc infusion; IV Intake: 250ml Intake: 20:00 IV: 2000ml; Total: 2000ml. fc 21:09 IV: 250ml; Total: 2250ml. fc 10/22 00:19 PO: 200ml; Total: 2450ml. fc Output: 10/21 21:06 Urine: 250ml (Voided); Total: 250ml. fc 10/22 00:19 Urine: 400ml (Voided); Total: 650ml. fc Outcome: 10/21 22:13 Decision to Hospitalize by Provider. pkluiz 10/22 00:03 Admitted to Tele accompanied by nurse, via wheelchair, room icu 6, with oxygen, with fc chart, Report called to Cinthya Schuler RN Condition: good Discharge instructions given to patient, family, Instructed on the need for admit, Demonstrated understanding of instructions. 00:26 Patient left the ED. fc Signatures: Dispatcher [employer] EDMS Crystal Foy RN RN sv Gay, Steven, RN RN sg Lam, Pin, MD MD pkl Yvonne Ray, WAREHOUSE WORKER-C WAREHOUSE WORKER-Csnw Anastasia Carey RN RN fc Martinez, Amelia as Jordan, Nathan nj Alzahri, Mohammad, MD MD ma2 Corrections: (The following items were deleted from the chart) 10/21 22:55 22:52 BP 91 / 57; Pulse 90bpm; Resp 20bpm; Pulse Ox 96% 3 lpm Nasal Cannula; Pain 0/10; fc fc 10/22 00:26 10/21 23:15 BP 90 / 57; Pulse 93bpm; Resp 18bpm; Pulse Ox 96% 3 lpm Nasal Cannula; Pain fc 0/10; fc
--- NOTE | 2019-10-21 22:15 | EDPHYS ---
Physician Documentation [facility] Name: Jeanne Richter Age: 79 yrs Sex: Female : 1940 Arrival Date: 10/21/2019 Time: 17:09 Bed 19 Private MD: ED Physician Lionel Felix HPI: 10/21 18:03 This 79 yrs old Female presents to ER via Wheelchair with complaints of ma2 Shortness Of Breath. 18:03 The patient has shortness of breath at rest. Onset: The symptoms/episode began/occurred ma2 gradually, 2 hour(s) ago. Associated signs and symptoms: Pertinent positives: productive cough, Pertinent negatives: productive cough, fever, loss of consciousness, numbness in extremities. Severity of symptoms: At their worst the symptoms were moderate in the emergency department the symptoms are unchanged. The patient has not experienced similar symptoms in the past. hx of thyroid ca with mets to lungs, on chemotherapy daily pills for 3 weeks, has been having fever to 101 and Nausea over the last 10 days, and started having sob and cough this afternoon. Of note she has hx of COPD and on home O2 2L via NC 13/05. upon arrival to ed her saturation was 90 on 2L O2 via NC and she was tachypneic. She never had DVT/PE not have symptoms of DVT currently. . Historical: - Allergies: 17:22 aprepitant; sv - PMHx: 17:22 Hypothyroidism; Lung CA; thyroid CA; sv - PSHx: 17:22 Lobectomy; cardiac stents; Carotid surgery; sv - Immunization history:: Adult Immunizations up to date. - Social history:: Patient/guardian denies using alcohol, street drugs, The patient lives with family, Smoking status: Patient/guardian denies using tobacco. - Ebola Screening: : Patient negative for fever greater than or equal to 101.5 degrees Fahrenheit, and additional compatible Ebola Virus Disease symptoms Patient denies exposure to infectious person Patient denies travel to an Ebola-affected area in the 21 days before illness onset. ROS: 18:03 Constitutional: Negative for fever, chills, and weight loss. ma2 18:03 All other systems are negative. Exam: 18:03 Constitutional: This is a well developed, well nourished patient who is awake, alert, ma2 and in no acute distress. Head/Face: Normocephalic, atraumatic. Eyes: Pupils equal round and reactive to light, extra-ocular motions intact. Lids and lashes normal. Conjunctiva and sclera are non-icteric and not injected. Cornea within normal limits. Periorbital areas with no swelling, redness, or edema. ENT: Nares patent. No nasal discharge, no septal abnormalities noted. Tympanic membranes are normal and external auditory canals are clear. Oropharynx with no redness, swelling, or masses, exudates, or evidence of obstruction, uvula midline. Mucous membranes moist. Neck: Trachea midline, no thyromegaly or masses palpated, and no cervical lymphadenopathy. Supple, full range of motion without nuchal rigidity, or vertebral point tenderness. No Meningismus. Chest/axilla: Normal chest wall appearance and motion. Nontender with no deformity. No lesions are appreciated. Cardiovascular: Regular rate and rhythm with a normal S1 and S2. No gallops, murmurs, or rubs. Normal PMI, no JVD. No pulse deficits. Abdomen/GI: Soft, non-tender, with normal bowel sounds. No distension or tympany. No guarding or rebound. No evidence of tenderness throughout. Back: No spinal tenderness. No costovertebral tenderness. Full range of motion. Skin: Warm, dry with normal turgor. Normal color with no rashes, no lesions, and no evidence of cellulitis. MS/ Extremity: Pulses equal, no cyanosis. Neurovascular intact. Full, normal range of motion. Neuro: Awake and alert, GCS 15, oriented to person, place, time, and situation. Cranial nerves II-XII grossly intact. Motor strength 5/5 in all extremities. Sensory grossly intact. Cerebellar exam normal. Normal gait. 18:03 Respiratory: mild respiratory distress is noted, Respirations: accessory muscle usage, is absent, Breath sounds: wheezing: expiratory is heard diffusely, Respiratory rate: 30 Vital Signs: 17:23 BP 71 / 55; Pulse 99; Resp 30; Temp 99(O); Pulse Ox 92% on 2 lpm NC; Weight 62.6 kg; sv Height 5 ft. 4 in. (162.56 cm); 18:15 BP 99 / 62; Pulse 105; Resp 28; Pulse Ox 96% on 2 lpm NC; sg 20:05 BP 79 / 47; Pulse 98; Resp 20; Pulse Ox 96% on 3 lpm NC; fc 20:36 BP 100 / 59; Pulse 111; Resp 24; Pulse Ox 92% on 3 lpm NC; fc 21:00 BP 89 / 55; Pulse 110; Resp 26; Pulse Ox 94% on 3 lpm NC; fc 21:15 BP 100 / 56; Pulse 105; Resp 26; Temp 98.5; Pulse Ox 95% on 3 lpm NC; Pain 0/10; fc 21:30 BP 93 / 60; Pulse 109; Resp 26; Pulse Ox 95% on 3 lpm NC; fc 21:58 BP 111 / 59; Pulse 101; Resp 24; Pulse Ox 96% on 3 lpm NC; fc 22:30 BP 101 / 56; Pulse 100; Resp 24; Pulse Ox 95% on 3 lpm NC; fc 22:52 BP 91 / 57; Pulse 90; Resp 24; Pulse Ox 96% on 3 lpm NC; Pain 0/10; fc 23:15 BP 90 / 57; Pulse 93; Resp 28; Pulse Ox 96% on 3 lpm NC; Pain 0/10; fc 23:45 BP 95 / 57; Pulse 87; Resp 26; Pulse Ox 96% on 3 lpm NC; Pain 0/10; fc 10/22 00:15 BP 92 / 62; Pulse 85; Resp 24; Temp 98.2; Pulse Ox 97% on 3 lpm NC; Pain 0/10; fc 10/21 17:23 Body Mass Index 23.69 (62.60 kg, 162.56 cm) sv MDM: 10/21 17:12 Patient medically screened. ma2 18:03 Differential diagnosis: Anemia Bronchitis Chronic Obstructive Pulmonary Disease ma2 pneumonia, reactive airway disease. Differential diagnosis: likely having copd exacerbation +/- pneumonia or bronchitis, will rule out the followin. febrile neutropenia, she does not have fever here however took Tylenol at 3 pm and had documented fever at home 101. PE is unlikely as she is low risk on Wells. she scores 1 point on Wells for dx of malignancy, Other dx of copd is more likely as she has exp. wheeze on exam. D-dimer testing is unhelpful as she has active malignancy. however if cxr is wnl and her sob is not improved after breathing treatment she will be reassessed for possible need of CT- PE rule out. The patient's Wells Deep Vein Thrombosis Score was calculated as follows: Malignancy Total Score: 0-2 Pts- Low Risk. The patient's pulmonary embolism risk score was calculated as follows: malignancy Total Score: 0-2 points. This patient was found to be at low risk for a pulmonary embolism by using the Well's assessment criteria. Data reviewed:. 19:19 ED course: i told the patient about elevated liver enzymes she will address that with ma2 her oncologist . 21:18 ED course: Talked to Dr. Haley ( [facility] ) Declined transfer. pk 22:09 ED course: Talked to Dr. Norton and Dr. Frank, to admit patient. [facility] 10/21 17:23 Order name: Basic Metabolic Panel; Complete Time: 19:10/21 17:23 Order name: CBC with Diff; Complete Time: 19:10/21 17:23 Order name: Ckmb; Complete Time: 19:10/21 17:23 Order name: CPK; Complete Time: 19:10/21 17:23 Order name: Hepatic Function; Complete Time: 19:10/21 17:23 Order name: Lipase; Complete Time: 19:10/21 17:23 Order name: Magnesium; Complete Time: 19:10/21 17:23 Order name: Protime (+inr); Complete Time: 19:10/21 17:23 Order name: Ptt, Activated; Complete Time: 19:10/21 17:23 Order name: Troponin (emerg Dept Use Only); Complete Time: 19:10/21 17:40 Order name: C-Reactive Protein; Complete Time: 19:10/21 17:40 Order name: Blood Culture Adult (2) 10/21 17:40 Order name: Lactate; Complete Time: 19:10/21 17:40 Order name: Procalcitonin; Complete Time: 19:10/21 17:23 Order name: EKG; Complete Time: 17:23 10/21 17:23 Order name: Cardiac monitoring; Complete Time: 18:16 10/21 17:23 Order name: EKG - Nurse/Tech; Complete Time: :10/21 17:40 Order name: Urine Microscopic Only; Complete Time: 21:12 mi2 10/21 17:40 Order name: Chest Single View XRAY; Complete Time: 21:12 mi2 10/21 17:42 Order name: Flu; Complete Time: 19:07 mi2 10/21 19:19 Order name: CT Chest For PE Angio; Complete Time: 21:12 mi2 10/21 19:48 Order name: Urine Dipstick--Ancillary (enter results); Complete Time: 21:12 [facility] 10/21 23:14 Order name: CONS Pharmacy Consult [facility] 10/21 23:14 Order name: CONS Pharmacy Consult [facility] 10/21 23:14 Order name: CONS Physician Consult [facility] 10/21 17:23 Order name: IV Saline Lock; Complete Time: 18:16 mi2 10/21 17:23 Order name: Labs collected and sent; Complete Time: 18:17 mi2 10/21 17:23 Order name: NPO; Complete Time: 18:31 [facility] 10/21 17:23 Order name: O2 Per Protocol; Complete Time: 18:31 mi2 10/21 17:23 Order name: O2 Sat Monitoring; Complete Time: 18:31 mi2 10/21 17:23 Order name: Urine Dipstick-Ancillary (obtain specimen); Complete Time: 20:37 [facility] 10/21 17:40 Order name: IV Saline Lock - Large Bore; Complete Time: 18:24 ma2 Administered Medications: 17:52 Drug: NS 0.9% (30 ml/kg) 30 ml/kg Route: IV; Rate: bolus; Site: right wrist; sg 20:00 Follow up: Response: No adverse reaction; No change in condition; IV Status: Completed fc infusion; IV Intake: 2000ml 17:52 Drug: Rocephin 1 grams Route: IV; Rate: calculated rate; Site: right wrist; sg 18:20 Follow up: Response: No adverse reaction; IV Status: Completed infusion sg 17:52 Drug: Albuterol - atroVENT (3:1) (2.5 mg - 0.5 mg) 3 ml Route: Nebulizer; sg 18:30 Follow up: Response: No adverse reaction sg 17:52 Drug: MethylPrednisoLONE 125 mg Route: IVP; Site: right wrist; sg 18:30 Follow up: Response: No adverse reaction sg 20:15 Drug: NS 0.9% 250 ml Route: IV; Rate: bolus; Site: right wrist; fc 21:09 Follow up: Response: No adverse reaction; No change in condition; IV Status: Completed fc infusion; IV Intake: 250ml Disposition: 22:13 Critical Care:. pkl Disposition: 10/21/19 22:13 Hospitalization ordered by Christian Norton for Inpatient Admission. Preliminary diagnosis is Acute dyspnea. Right pleural effusion. Hypotension. Thyroid Ca with metastasis to the lung. - Bed requested for Intensive Care Unit. - Status is Inpatient Admission. fc - Condition is Stable. - Problem is new. - Symptoms are unchanged. UTI on Admission? No - Notes: you liver enzymes are elevated, talk with your oncologist tomorrow about that as this could be a side effect to your chemotherapy Critical care time excluding procedures: 22:13 Critical care time: Consultation: 10 minutes. Total time: 10 minutes pk Signatures: Dispatcher [employer] Crystal Zapata RN RN Justin Sierra RN RN sg Lam, Pin, MD MD pk Anastasia Carey RN RN Christian Rodriguez MD MD ma2 Linda Raymond mw2 Corrections: (The following items were deleted from the chart) 23:26 22:13 Hospitalization Ordered by Christian Norton MD for Inpatient Admission. Preliminary mw2 diagnosis is Acute dyspnea. Right pleural effusion. Hypotension. Thyroid Ca with metastasis to the lung. Bed requested for Telemetry/MedSurg (Inpatient). Status is Inpatient Admission. Condition is Stable. Problem is new. Symptoms are unchanged. UTI on Admission? No. pkl 10/22 00:26 10/21 23:26 10/21/2019 22:13 Hospitalization Ordered by Christian Norton MD for Inpatient fc Admission. Preliminary diagnosis is Acute dyspnea. Right pleural effusion. Hypotension. Thyroid Ca with metastasis to the lung. Bed requested for Intensive Care Unit. Status is Inpatient Admission. Condition is Stable. Problem is new. Symptoms are unchanged. UTI on Admission? No. mw2
[2019-10-21] MEDS ORDERED: ACETAMINOPHEN 500 MG TAB PO PRN (23:08)
[2019-10-21] MEDS ORDERED: ONDANSETRON 4 MG/2 ML VIAL IV PRN (23:08)
[2019-10-21] MEDS ORDERED: NA CHLORIDE 0.9% 1,000 ML IV SCH (23:45)
[2019-10-22] MEDS ORDERED: MAGNESIUM SULFATE 1 gm IVPB 1 GM/100 ML BAG IV ONE (01:08)
[2019-10-22] MEDS ORDERED: POTASSIUM 25 MEQ EFFERV TAB PO ONE (01:08)
[2019-10-22] MEDS: PIPER/TAZO/NS 3.375gm 3.375 GM/100 ML BAG IVPB SCH ×4 (01:15→17:06)
[2019-10-22] MEDS: IPRATROPIUM BROM 0.5MG/2.5ML NEB SCH ×5 (01:15→20:35)
[2019-10-22] MEDS ORDERED: NA CHLORIDE 0.9% 100 ML ONE ×2 (01:15→06:11)
[2019-10-22] MEDS: ALBUTEROL 2.5 MG/3 ML NEB SOL NEB SCH ×2 (01:15→08:00)
[2019-10-22] MEDS ORDERED: PIPERACIL/TAZO 3.375 GM VIAL IV ONE ×2 (01:15→01:58)
[2019-10-22] MEDS ORDERED: VANCOMYCIN 1.5 GM in NA CHLORIDE 0.9% 500 ML IVPB ONE (01:30)
[2019-10-22] MEDS ORDERED: NA CHLORIDE 0.9% 500 ML ONE (01:59)
[2019-10-22] MEDS ORDERED: VANCOMYCIN 1 GM/VIAL ONE (01:59)
[2019-10-22] MEDS ORDERED: NA CHLORIDE 0.9% 1,000 ML IV SCH (02:00)
[2019-10-22 05:05] LABS: Absolute Lymphocytes (CBC) 0.7 K/uL (0.7-4.9); Basophils % 0.4 % (0-1.3); Hematocrit 26.3 % (36.0-45.0); Lymphocytes % 10.1 % (15.3-44.8); MPV 8.9 fL (7.6-11.3); RBC Red Blood Cell Count 3.43 M/uL (3.86-4.86)
[2019-10-22 05:22] LABS: ALT/SGPT 89 U/L (12-78); AST/SGOT 177 U/L (15-37); Alkaline Phosphatase 152 U/L (45-117); BUN Blood Urea Nitrogen 11 mg/dL (7-18); Bicarbonate 31 mmol/L (21-32); Bilirubin Total 0.3 mg/dL (0.2-1.0); Glucose Level 136 mg/dL (74-106); HDL Cholesterol 30 mg/dL (40-60); LDL Cholesterol, Calculated 22 (<130); Magnesium 2.2 mg/dL (1.8-2.4); NT PRO-BNP 1463 pg/mL (<450); Phosphorus 2.2 mg/dL (2.5-4.9); Potassium 4.3 mmol/L (3.5-5.1); Protein, Total 5.1 g/dL (6.4-8.2); Sodium Level 140 mmol/L (136-145)
[2019-10-22] MEDS ORDERED: ALBUTEROL 2.5 MG/3 ML NEB SOL NEB PRN (08:03)
[2019-10-22] MEDS ORDERED: IPRATROPIUM BROM 0.5MG/2.5ML NEB PRN (08:03)
[2019-10-22] MEDS: POTASS/SODIUM PHOSPHATE 1 PKT POWD.PACK PO SCH ×3 (08:14→12:39)
--- NOTE | 2019-10-22 08:45 | P.CNS ---
Date of Consult: 10/22/19 Reason for Consult: Right-sided pleural effusion shortness of breath Chief Complaint: Shortness of breath History of Present Illness: Patient is 79 years of age with a history of metastatic thyroid cancer was recently started on chemotherapy developed acute onset of shortness of breath chest congestion was admitted to the hospital was found to have a right-sided pleural effusion denies any chest pain fever cough sputum hemoptysis or chest pain history of right lower lobe lobectomy from lung cancer many years ago patient is currently on chemotherapy Allergies No Known Allergies Allergy (Unverified 03/27/18 03:14) Home Medications: Acetaminophen [Tylenol Extra Strength] 500 mg PO BEDTIME 10/21/19 Aspirin [Adult Low Dose Aspirin EC] 81 mg PO DAILY 10/21/19 Clopidogrel Bisulfate [Plavix] 75 mg PO DAILY 10/21/19 Dabrafenib Mesylate [Tafinlar] 2 cap PO BID 10/21/19 Famotidine [Pepcid] 20 mg PO DAILY 10/21/19 Levothyroxine [Synthroid*] 125 mcg PO DAILY 10/21/19 Trametinib Dimethyl Sulfoxide [Mekinist] 2 mg PO BEDTIME 10/21/19 - Past Medical/Surgical History Diabetic: No -: Thyroid cancer -: lung cancer -: hypothyroidism -: chf -: gerd -: Mi -: o2 dependant -: had 2 yrs of iv chemo then a rest then 10 addition -: tx's iv. Last one 2 months ago and then 3 week -: ago started po chemo -: right carotid surg -: heart stent x 2 -: jackie - Social History Alcohol use: No CD- Drugs: No Caffeine use: Yes Place of Residence: Home Review of Systems 10-point ROS is otherwise unremarkable Respiratory: Shortness of Breath Physical Examination Temp Pulse Resp BP Pulse Ox 98.6 F 76 17 96/52 L 99 10/22/19 04:00 10/22/19 04:00 10/22/19 04:00 10/22/19 04:00 10/22/19 04:00 General: Alert, Oriented x3 Neck: Supple Respiratory: Diminished (Diminished on the right side has some wheezing and crackles on both sides) Cardiovascular: No edema, Regular rate/rhythm Gastrointestinal: Normal bowel sounds, Soft and benign Laboratory Data (last 24 hrs) 10/21/19 17:30: PT 12.4, INR 1.05, APTT 32.1 10/21/19 17:30: WBC 4.8, Hgb 10.1 L, Hct 30.7 L, Plt Count 115 L 10/21/19 17:30: Sodium 135 L, Potassium 3.3 L, BUN 20 H, Creatinine 0.48 L, Glucose 133 H, Magnesium 1.8, Total Bilirubin 0.5, AST 207 H, ALT 92 H, Alkaline Phosphatase 189 H, Lipase 80 - Problems (1) Pleural effusion Current Visit: Yes Status: Acute Plan: Patient is 79 years of age admitted with acute onset of shortness of breath she has a pleural effusion occupying the lower 3rd over patient has had a light lower lobe lobectomy for lung cancer many years ago denies any chest pain fever chills I have ordered ultrasound of the chest patient is on Plavix also bilateral decubitus of the chest the discuss with cancer doctor vito Adair regarding the chemotherapy patient's white count is normal mildly anemic blood pressure is slightly low probably best to wait with a weaker so prior to performing thoracentesis which can be done as an outpatient (2) COPD (chronic obstructive pulmonary disease) Current Visit: Yes Status: Acute Plan: Patient has a history of COPD on Advair which is 9 not helping her does have some dyspnea on exertion recommend bronchodilators and steroids Qualifiers: Emphysema type: unspecified
[2019-10-22 08:51] LABS: Ferritin 1054.3 ng/mL (8-388)
[2019-10-22] MEDS ORDERED: CLOPIDOGREL 75 MG TABLET PO SCH (09:00)
[2019-10-22] MEDS: LEVOTHYROXINE SOD 0.125 MG TAB PO SCH (09:06)
[2019-10-22] MEDS: FAMOTIDINE 20 MG TAB PO SCH (09:06)
[2019-10-22] MEDS: ASPIRIN EC 81 MG TAB PO SCH (09:06)
[2019-10-22] MEDS: predniSONE 20 MG TAB PO SCH ×2 (09:06→20:01)
[2019-10-22] MEDS: ENOXAPARIN 40 MG/0.4 ML SQ SCH (09:06)
[2019-10-22] MEDS: FORMOTEROL FUMARATE 20 MCG/2 ML VIAL.NEB NEB SCH ×2 (09:18→20:35)
[2019-10-22] MEDS: ACETAMINOPHEN 500 MG TAB PO SCH ×3 (09:20→20:00)
--- NOTE | 2019-10-22 09:58 | P.HP ---
Certification for Inpatient Patient admitted to: Inpatient With expected LOS: >2 Midnights Patient will require the following post-hospital care: None Practitioner: I am a practitioner with admitting privileges, knowledge of patient current condition, hospital course, and medical plan of care. Services: Services provided to patient in accordance with Admission requirements found in Title 42 Section 412.3 of the Code of Federal Regulations Patient History Date of Service: 10/21/19 Reason for admission: Shortness of breath Allergies No Known Allergies Allergy (Unverified 03/27/18 03:14) Home Medications: Acetaminophen [Tylenol Extra Strength] 500 mg PO BEDTIME 10/21/19 Aspirin [Adult Low Dose Aspirin EC] 81 mg PO DAILY 10/21/19 Clopidogrel Bisulfate [Plavix] 75 mg PO DAILY 10/21/19 Dabrafenib Mesylate [Tafinlar] 2 cap PO BID 10/21/19 Famotidine [Pepcid] 20 mg PO DAILY 10/21/19 Levothyroxine [Synthroid*] 125 mcg PO DAILY 10/21/19 Trametinib Dimethyl Sulfoxide [Mekinist] 2 mg PO BEDTIME 10/21/19 - Past Medical/Surgical History Has patient received pneumonia vaccine in the past: Yes Diabetic: No -: Thyroid cancer -: lung cancer -: hypothyroidism -: chf -: gerd -: Mi -: o2 dependant -: had 2 yrs of iv chemo then a rest then 10 addition -: tx's iv. Last one 2 months ago and then 3 week -: ago started po chemo -: right carotid surg -: heart stent x 2 -: jackie - Social History Alcohol use: No CD- Drugs: No Caffeine use: Yes Place of Residence: Home Physical Examination - Vital Signs Temperature: 98.6 F Blood Pressure: 96/52 Pulse: 76 Respirations: 17 Pulse Ox (%): 99 - Studies Laboratory Data (last 24 hrs) 10/21/19 17:30: PT 12.4, INR 1.05, APTT 32.1 10/21/19 17:30: WBC 4.8, Hgb 10.1 L, Hct 30.7 L, Plt Count 115 L 10/21/19 17:30: Sodium 135 L, Potassium 3.3 L, BUN 20 H, Creatinine 0.48 L, Glucose 133 H, Magnesium 1.8, Total Bilirubin 0.5, AST 207 H, ALT 92 H, Alkaline Phosphatase 189 H, Lipase 80 Microbiology Data (last 24 hrs): 10/21/19 18:00 Nasopharnyx Influenza Type A Antigen Screen - Final 10/21/19 18:00 Nasopharnyx Influenza Type B Antigen Screen - Final Assessment & Plan - Problems (Diagnosis) (1) Pulmonary mass Current Visit: Yes Status: Acute (2) Loculated pleural effusion Current Visit: Yes Status: Acute (3) COPD (chronic obstructive pulmonary disease) Current Visit: Yes Status: Acute Qualifiers: Emphysema type: unspecified - Advance Directives Does patient have a Living Will: No Does patient have a Durable POA for Healthcare: No
--- NOTE | 2019-10-22 11:45 | RAD REPORT ---
EXAM DESCRIPTION: RAD - Chest Lateral Decubitus - 10/22/2019 11:38 am CLINICAL HISTORY: Right pleural effusion FINDINGS: Bilateral decubitus films obtained There is no layering of the moderate right pleural effusion indicating that it is either very viscous or loculated
[2019-10-22] MEDS ORDERED: VANCOMYCIN 1 GM in NA CHLORIDE 0.9% 250 ML IVPB SCH (13:00)
--- NOTE | 2019-10-22 13:17 | ECHO ---
HEIGHT: 5 ft 4 in WEIGHT: 134 lb 3 oz DATE OF STUDY: 10/22/[address]: Gamal Mantilla DO 2-DIMENSIONAL: YES M.MODE: YES DOPPLER: YES COLOR FLOW: YES TDS: NO PORTABLE: NO DEFINITY: NO BUBBLE STUDY: NO DIAGNOSIS: EVALUATE FOR CONGESTIVE HEART FAILURE CARDIAC HISTORY: CATHERIZATION: YES SURGERY: NO PROSTHETIC VALVE: NO PACEMAKER: NO MEASUREMENTS (cm) DIASTOLIC (NORMALS) SYSTOLIC (NORMALS) IVSd 0.9 (0.6-1.2) LA Diam 3.4 (1.9-4.0) LVEF 56% LVIDd 4.4 (3.5-5.7) LVIDs 3.1 (2.0-3.5) %FS 29% LVPWd 0.9 (0.6-1.2) Ao Diam 2.3 (2.0-3.7) 2 DIMENSIONAL ASSESSMENT: RIGHT ATRIUM: NORMAL LEFT ATRIUM: NORMAL RIGHT VENTRICLE: NORMAL LEFT VENTRICLE: NORMAL TRICUSPID VALVE: NORMAL MITRAL VALVE: MITRAL ANNULAR CALCIFICATION PULMONIC VALVE: NORMAL AORTIC VALVE: STENOSIS PERICARDIAL EFFUSION: NONE AORTIC ROOT: NORMAL LEFT VENTRICULAR WALL MOTION: NORMAL. DOPPLER/COLOR FLOW: NO AORTIC REGURGITATION. MODERATE AORTIC STENOSIS, PEAK/MEAN GRADIENT 48/27mmHg, ESTIMATED AORTIC VALVE AREA 1.0 CENTIMETERS SQUARED. MILD MITRAL AND TRICUSPID REGURGITATION. ESTIMATED RIGHT VENTRICULAR SYSTOLIC PRESSURE 45mmHg (MILD PULMONARY HYPERTENSION. COMMENTS: NORMAL LEFT VENTRICULAR EJECTION FRACTION. MITRAL ANNULAR CALCIFICATION. MILD MITRAL AND TRICUSPID REGURGITATION. MILD PULMONARY HYPERTENSION. TECHNOLOGIST: ZULEYKA HANLEY
--- NOTE | 2019-10-22 13:47 | P.PN ---
Subjective Date of Service: 10/22/19 Primary Care Provider: Dr. Armstrong ([place]); Dr. Mounika Recinos Chief Complaint: Shortness of breath Subjective: Improving, Doing well Physical Examination - Vital Signs Temperature: 97.9 F Blood Pressure: 118/66 Pulse: 86 Respirations: 21 Pulse Ox (%): 98 - Physical Exam General: Alert, In no apparent distress, Oriented x3 HEENT: Atraumatic Neck: Supple Respiratory: Expiratory wheezes Cardiovascular: Normal pulses, Regular rate/rhythm Gastrointestinal: Normal bowel sounds, Soft and benign, Non-distended, No masses , No rebound, No guarding Integumentary: No tenderness/swelling, No erythema, No warmth, No cyanosis Neurological: Normal speech, Normal strength at 5/5 x4 extr, Normal tone, Normal affect - Studies Laboratory Data (last 24 hrs) 10/21/19 17:30: PT 12.4, INR 1.05, APTT 32.1 10/21/19 17:30: WBC 4.8, Hgb 10.1 L, Hct 30.7 L, Plt Count 115 L 10/21/19 17:30: Sodium 135 L, Potassium 3.3 L, BUN 20 H, Creatinine 0.48 L, Glucose 133 H, Magnesium 1.8, Total Bilirubin 0.5, AST 207 H, ALT 92 H, Alkaline Phosphatase 189 H, Lipase 80 Microbiology Data (last 24 hrs): 10/21/19 18:00 Nasopharnyx Influenza Type A Antigen Screen - Final 10/21/19 18:00 Nasopharnyx Influenza Type B Antigen Screen - Final Medications List Reviewed: Yes Assessment & Plan Discharge Plan: Home Plan to discharge in: Greater than 2 days Physician Review Additional Text: Impression: Shortness of breath secondary to right-sided partial loculated pleural effusion with history of lung metastasis complicated with COPD exacerbation History of thyroid cancer with mets to the long on chemotherapy Anemia of chronic disease GERD CAD with history of chronic diastolic CHF Plan: Shortness of breath secondary to right-sided partial loculated pleural effusion with history of lung metastasis complicated with COPD exacerbation: Patient slightly improved. Continue to monitor closely. Continue IV antibiotic therapy. Case discussed with pulmonology. Will hold Plavix at this time as pulmonology plans for outpatient thoracentesis. Continue maintain oxygen saturations above 93%. Will wean off oxygen. Anticipate improvement over the next 2-4 days. History of thyroid cancer with mets to the long on chemotherapy: Continue with her thyroid medication. Case discussed with her oncologist. Will continue to hold chemotherapy until clinically stable then it can be restarted Anemia of chronic disease: Will monitor closely. GERD: Continue medication. CAD with history of chronic diastolic CHF: Will hold Plavix as recommended above as pulmonology plans for outpatient thoracentesis. Time Spent Managing Pts Care (In Minutes): 55
--- NOTE | 2019-10-22 18:42 | RAD REPORT ---
EXAM DESCRIPTION: US - Chest - 10/22/2019 6:29 pm CLINICAL HISTORY: Right pleural effusion COMPARISON: October 22, 2019 x-ray FINDINGS: Moderate right pleural effusion is present. Septations are visualized within the effusion. IMPRESSION: Moderate loculated right pleural effusion
[2019-10-22] MEDS ORDERED: BUDESONIDE 0.25 MG/2 ML NEB NEB SCH (20:00)
[2019-10-23] MEDS: PIPER/TAZO/NS 3.375gm 3.375 GM/100 ML BAG IVPB SCH ×2 (01:04→09:00)
[2019-10-23] MEDS: IPRATROPIUM BROM 0.5MG/2.5ML NEB SCH ×2 (02:00→08:28)
[2019-10-23] MEDS: ACETAMINOPHEN 500 MG TAB PO SCH ×4 (03:04→20:22)
[2019-10-23] MEDS: LEVOTHYROXINE SOD 0.125 MG TAB PO SCH (05:38)
--- NOTE | 2019-10-23 06:47 | EKG ---
Test Date: 2019-10-21 Test Time: 19:09:50 Matrix Bath Operator: SWG MEASUREMENT RESULTS: Intervals: Rate: 117 ND: 142 QRSD: 102 QT: 338 QTc: 471 [place]: P: 74 ND: 142 QRS: 51 T: 71 INTERPRETIVE STATEMENTS: Sinus tachycardia with premature atrial complexes with aberrant conduction Incomplete right bundle branch block Nonspecific ST abnormality Abnormal ECG Compared to ECG 03/27/2018 04:10:52 Atrial premature complex(es) now present Aberrant conduction of supraventricular beat(s) now present ST (T wave) deviation now present Sinus rhythm no longer present Sinus arrhythmia no longer present T-wave abnormality no longer present Prolonged QT interval no longer present Electronically Signed On 10-23-19 06:43:53 [facility] TECH by Dima Vigil
[2019-10-23 06:48] LABS: Absolute Lymphocytes (CBC) 0.9 K/uL (0.7-4.9); Basophils % 0.6 % (0-1.3); Hematocrit 26.2 % (36.0-45.0); MPV 8.5 fL (7.6-11.3)
[2019-10-23 07:00] LABS: BUN Blood Urea Nitrogen 10 mg/dL (7-18); Bicarbonate 29 mmol/L (21-32); Glucose Level 106 mg/dL (74-106); Magnesium 2.1 mg/dL (1.8-2.4); Phosphorus 2.5 mg/dL (2.5-4.9); Potassium 3.5 mmol/L (3.5-5.1); Sodium Level 141 mmol/L (136-145)
[2019-10-23] MEDS ORDERED: POTASSIUM CL SA 10 MEQ TAB PO ONE (08:00)
[2019-10-23 08:18] VITALS: BMI 22.9
[2019-10-23 08:20] LABS: Bilirubin Direct 0.1 mg/dL (0-0.2); Bilirubin Total 0.4 mg/dL (0.2-1.0); Protein, Total 5.2 g/dL (6.4-8.2)
[2019-10-23] MEDS: FORMOTEROL FUMARATE 20 MCG/2 ML VIAL.NEB NEB SCH (08:28)
--- NOTE | 2019-10-23 08:32 | RAD REPORT ---
EXAM DESCRIPTION: RAD - Chest Single View - 10/23/2019 5:51 am CLINICAL HISTORY: Pleural effusion, COPD COMPARISON: October 21 AP chest, October 22 decubitus films TECHNIQUE: AP portable chest image was obtained 0547 hours . FINDINGS: Loculated right pleural fluid collection, detailed on CT chest imaging, has not changed. R ight hilar postsurgical changes and masslike density have not changed. No new left lung field finding . Heart size is stable. Right heart border is obscured by the right base pleural and parenchymal opac ification. IMPRESSION: Stable chest from prior imaging.
[2019-10-23] MEDS: ENOXAPARIN 40 MG/0.4 ML SQ SCH (09:00)
[2019-10-23] MEDS: POTASS/SODIUM PHOSPHATE 1 PKT POWD.PACK PO SCH ×3 (09:19→12:05)
[2019-10-23] MEDS: FAMOTIDINE 20 MG TAB PO SCH (09:19)
[2019-10-23] MEDS: ASPIRIN EC 81 MG TAB PO SCH (09:19)
[2019-10-23] MEDS: predniSONE 20 MG TAB PO SCH (09:19)
[2019-10-23] MEDS ORDERED: LEVALBUTEROL 0.63 MG/3 ML NEB NEB PRN (12:04)
[2019-10-23] MEDS ORDERED: IPRATROPIUM BROM 0.5MG/2.5ML NEB PRN (12:05)
--- NOTE | 2019-10-23 12:06 | P.PN ---
Subjective Date of Service: 10/23/19 Primary Care Provider: Dr. Armstrong ([place]); Dr. Mounika Recinos Chief Complaint: Shortness of breath Subjective: Improving, Doing well Physical Examination - Vital Signs Temperature: 97.6 F Blood Pressure: 104/56 Pulse: 73 Respirations: 16 Pulse Ox (%): 96 - Physical Exam General: Alert, In no apparent distress, Oriented x3, Cooperative HEENT: Atraumatic Neck: Supple Respiratory: Expiratory wheezes (Mild wheezing) Cardiovascular: Normal pulses, Regular rate/rhythm Gastrointestinal: Normal bowel sounds, Soft and benign, Non-distended, No tenderness, No masses, No rebound, No guarding Musculoskeletal: No tenderness, No warmth Integumentary: No erythema, No warmth, No cyanosis Neurological: Normal speech, Normal strength at 5/5 x4 extr, Normal tone, Normal affect - Studies Medications List Reviewed: Yes Assessment & Plan Discharge Plan: Home Plan to discharge in: 24 Hours Physician Review Additional Text: Impression: Shortness of breath secondary to right-sided partial loculated pleural effusion with history of lung metastasis complicated with COPD exacerbation History of thyroid cancer with mets to the lung on chemotherapy Anemia of chronic disease GERD CAD with chronic diastolic CHF with noted moderate aortic stenosis, EF 56% Plan: Shortness of breath secondary to right-sided partial loculated pleural effusion with history of lung metastasis complicated with COPD exacerbation: Patient has improved. Case discussed with pulmonology. No need for thoracentesis at this time. No layering noted on x-ray. Will continue with antibiotic therapy, COPD treatment. Will arrange for home health and physical therapy at discharge. Will also arrange for nebulizer at home with new medications of Xopenex 1 unit dose 3 times a day as needed for shortness of breath and Brovana 1 unit dose twice daily. Patient has home oxygen. Will need to continue with this at home. Will ambulate with physical therapy. Anticipate home tomorrow with Augmentin and recommendations as above. History of thyroid cancer with mets to the lung on chemotherapy: Continue with her thyroid medication. Case discussed with her oncologist. Chemotherapy currently on hold. This can be restarted once clinically stable. Anemia of chronic disease: Will monitor closely. GERD: Continue medication. CAD with chronic diastolic CHF with noted moderate aortic stenosis, EF 56%: Ejection fraction 56%. Echocardiogram shows moderate aortic stenosis with mild pulmonary hypertension. Continue 1500 cc per day fluid restriction and low- salt diet. Continue with Lasix. Will restart Plavix. Time Spent Managing Pts Care (In Minutes): 55
--- NOTE | 2019-10-23 12:40 | P.PN ---
Subjective Date of Service: 10/23/19 Primary Care Provider: Dr. Armstrong ([place]); Dr. Mounika Recinos Chief Complaint: Shortness of breath Subjective: Improving (Patient is doing well still some shortness of breath and hypoxic on room air by pulse ox patient is to use Advair is not helping) Review of Systems General: Weakness Respiratory: Shortness of Breath Physical Examination - Vital Signs Temperature: 97.6 F Blood Pressure: 104/56 Pulse: 73 Respirations: 16 Pulse Ox (%): 96 - Physical Exam General: Alert, Oriented x3 HEENT: Atraumatic Neck: Supple Respiratory: Diminished (Diminished air entry in the right side) Cardiovascular: No edema - Studies Medications List Reviewed: Yes Assessment & Plan - Problems (Diagnosis) (1) Pleural effusion Current Visit: Yes Status: Acute Plan: Patient is doing better most likely exacerbation of COPD no evidence of an active infection. Decubitus x-ray shows no layering loculated effusion by the ultrasound cultures negative chemistries reviewed mild microcytic anemia patient can be discharged home on Augmentin and low-dose prednisone also ordered ABGs to confirm hypoxemia also added Spiriva at discharge (2) COPD (chronic obstructive pulmonary disease) Current Visit: Yes Status: Acute Plan: Patient states that Advair is not effective recommend continue for now and add Spiriva in addition to low-dose prednisone 10 mg twice a day follow-up with me next week can resume her chemotherapeutic agents I have advised her to call the MD Vega the states that patient is having side effects Qualifiers: Emphysema type: unspecified Physician Review Additional Text: Impression: Shortness of breath secondary to right-sided partial loculated pleural effusion with history of lung metastasis complicated with COPD exacerbation History of thyroid cancer with mets to the lung on chemotherapy Anemia of chronic disease GERD CAD with chronic diastolic CHF with noted moderate aortic stenosis, EF 56% Plan: Shortness of breath secondary to right-sided partial loculated pleural effusion with history of lung metastasis complicated with COPD exacerbation: Patient has improved. Case discussed with pulmonology. No need for thoracentesis at this time. No layering noted on x-ray. Will continue with antibiotic therapy, COPD treatment. Will arrange for home health and physical therapy at discharge. Will also arrange for nebulizer at home with new medications of Xopenex 1 unit dose 3 times a day as needed for shortness of breath and Brovana 1 unit dose twice daily. Patient has home oxygen. Will need to continue with this at home. Will ambulate with physical therapy. Anticipate home tomorrow with Augmentin and recommendations as above. History of thyroid cancer with mets to the lung on chemotherapy: Continue with her thyroid medication. Case discussed with her oncologist. Chemotherapy currently on hold. This can be restarted once clinically stable. Anemia of chronic disease: Will monitor closely. GERD: Continue medication. CAD with chronic diastolic CHF with noted moderate aortic stenosis, EF 56%: Ejection fraction 56%. Echocardiogram shows moderate aortic stenosis with mild pulmonary hypertension. Continue 1500 cc per day fluid restriction and low- salt diet. Continue with Lasix. Will restart Plavix.
[2019-10-23 15:25] LABS: Arterial Blood Carboxyhemoglob 1.4 % (0-1.5); Blood Gas Oxyhemoglobin 85.9 % (94-97); Blood O2 Saturation 87.5 % (92-98.5)
[2019-10-23] MEDS: AMOX/K CLAV 500 MG TAB PO SCH (20:15)
[2019-10-23] MEDS: predniSONE 10 MG TAB PO SCH (20:15)
[2019-10-23] MEDS: ARFORMOTEROL TARTRATE 15 MCG/2 ML VIAL.NEB IH SCH (20:35)
[2019-10-24] MEDS: ACETAMINOPHEN 500 MG TAB PO SCH ×3 (03:00→15:00)
[2019-10-24 04:58] LABS: BUN Blood Urea Nitrogen 10 mg/dL (7-18); Bicarbonate 33 mmol/L (21-32); Glucose Level 108 mg/dL (74-106); Magnesium 2.2 mg/dL (1.8-2.4); Potassium 3.8 mmol/L (3.5-5.1); Sodium Level 141 mmol/L (136-145)
[2019-10-24] MEDS ORDERED: POTASSIUM CL SA 10 MEQ TAB PO ONE (05:02)
[2019-10-24 05:14] LABS: Absolute Lymphocytes (CBC) 0.9 K/uL (0.7-4.9); Basophils % 0.4 % (0-1.3); Hematocrit 28.9 % (36.0-45.0); Lymphocytes % 17.4 % (15.3-44.8); MPV 8.7 fL (7.6-11.3); RBC Red Blood Cell Count 3.76 M/uL (3.86-4.86)
[2019-10-24] MEDS: LEVOTHYROXINE SOD 0.125 MG TAB PO SCH (05:48)
[2019-10-24] MEDS: ARFORMOTEROL TARTRATE 15 MCG/2 ML VIAL.NEB IH SCH (07:55)
[2019-10-24] MEDS ORDERED: CLOPIDOGREL 75 MG TABLET PO SCH (09:00)
[2019-10-24] MEDS ORDERED: FUROSEMIDE 20 MG TABLET PO SCH (09:00)
[2019-10-24] MEDS: ENOXAPARIN 40 MG/0.4 ML SQ SCH ×2 (09:00→10:02)
[2019-10-24] MEDS: predniSONE 10 MG TAB PO SCH (10:00)
[2019-10-24] MEDS: AMOX/K CLAV 500 MG TAB PO SCH (10:01)
[2019-10-24] MEDS: ASPIRIN EC 81 MG TAB PO SCH (10:01)
[2019-10-24] MEDS: FAMOTIDINE 20 MG TAB PO SCH (10:01)
[2019-10-24] MEDS ORDERED: LOPERAMIDE HCL 2 MG CAPSULE PO PRN (10:29)
[2019-10-24] MEDS ORDERED: LEVALBUTEROL 0.63 MG/3 ML NEB NEB PRN (11:00)
[2019-10-24] MEDS ORDERED: IPRATROPIUM BROM 0.5MG/2.5ML NEB PRN (11:00)
[2019-10-24 12:23] VITALS: BP 106/56; TEMP 97.8
[2019-10-24 13:06] VITALS: O2SAT 98
[2019-10-24 13:30] LABS: C.diff Antigen/Toxin Ag neg : Tox neg (NEG : NEG)
--- NOTE | 2019-10-24 13:41 | P.DS ---
Admission Date: 10/21/19 Discharge Date: 10/24/19 Primary Care Provider: Dr. Armstrong (Bend); Dr. Mounika Recinos Disposition: ROUTINE DISCHARGE Discharge Condition: GOOD Reason for Admission: Shortness of breath Consultations: Pulmonary-Dr. Vega Procedures: CT Chest: COMPARISON: Chest Single View dated 10/21/2019; Abdomen Pelvis W Contrast dated 05/24/2019 TECHNIQUE: Dynamically enhanced 3 mm thick images of the chest were obtained during administration of approximately 150mL Isovue 370 IV contrast. Coronal and oblique MIP reconstruction images were generated and reviewed. Exam utilizes a protocol to evaluate the pulmonary arterial tree. All CT scans are performed using dose optimization technique as appropriate and may include automated exposure control or mA/KV adjustment according to patient size. FINDINGS: No pulmonary emboli are identified. The aorta as imaged shows no acute or suspicious finding. No pericardial thickening or effusion. Aortic calcifications are present. Multiple 8 mm or less left-sided pulmonary nodules are present. The pulmonary nodules in the lower left chest are not changed from May 2019. No left-sided pleural effusion. Interstitial markings are mildly prominent in the lower left lung field. Patchy mucosal thickening or mucous changes are present in segmental branch bronchi left lower lobe. Approximately 2.4 centimeter pleural abutting mass density is present in the medial lower right lung field similar to the prior study. Loculated pleural fluid collections in the right base is are similar to comparison. Numerous areas of pleural nodularity in the right are not clearly different. Partial atelectasis of the right lower lobe noted. Right-sided pleural fluid is similar to May. No pneumothorax. No new or enlarging mediastinal or hilar mass. No chest wall masses or abnormal axillary lymphadenopathy. IMPRESSION: No pulmonary emboli identified. Right-sided partially loculated pleural effusion, right-sided pleural based masses and bilateral lung parenchymal nodules are not substantially different from the comparative images on a CT abdomen from May 2019. Chest US: COMPARISON: October 22, 2019 x-ray FINDINGS: Moderate right pleural effusion is present. Septations are visualized within the effusion. IMPRESSION: Moderate loculated right pleural effusion Decubitus chest x-ray: FINDINGS: Bilateral decubitus films obtained There is no layering of the moderate right pleural effusion indicating that it is either very viscous or loculated Follow up CXR: COMPARISON: October 21 AP chest, October 22 decubitus films TECHNIQUE: AP portable chest image was obtained 0547 hours . FINDINGS: Loculated right pleural fluid collection, detailed on CT chest imaging, has not changed. Right hilar postsurgical changes and masslike density have not changed. No new left lung field finding. Heart size is stable. Right heart border is obscured by the right base pleural and parenchymal opacification. IMPRESSION: Stable chest from prior imaging. ECHO: Ejection fraction 56% LEFT VENTRICULAR WALL MOTION: NORMAL. DOPPLER/COLOR FLOW: NO AORTIC REGURGITATION. MODERATE AORTIC STENOSIS, PEAK/ MEAN GRADIENT 48/27mmHg, ESTIMATED AORTIC VALVE AREA 1.0 CENTIMETERS SQUARED. MILD MITRAL AND TRICUSPID REGURGITATION. ESTIMATED RIGHT VENTRICULAR SYSTOLIC PRESSURE 45mmHg (MILD PULMONARY HYPERTENSION. COMMENTS: NORMAL LEFT VENTRICULAR EJECTION FRACTION. MITRAL ANNULAR CALCIFICATION. MILD MITRAL AND TRICUSPID REGURGITATION. MILD PULMONARY HYPERTENSION. Medical Problem List: Shortness of breath secondary to right-sided partial loculated pleural effusion with history of lung metastasis complicated with COPD exacerbation and acute on chronic diastolic CHF with mild pulmonary hypertension History of thyroid cancer with mets to the lung on chemotherapy Anemia of chronic disease GERD CAD with chronic diastolic CHF with noted moderate aortic stenosis, EF 56% Brief History of Present Illness: 79-year-old female presented to emergency room with shortness of breath. Patient found to have partially loculated pleural effusion. Patient was admitted for further evaluation. Hospital Course: Patient presented with shortness of breath secondary to right-sided partial loculated pleural effusion with history of lung metastasis from thyroid cancer. Patient on chemotherapy. Patient seen and evaluated by pulmonology. Chest ultrasound showed loculated pleural effusion. Decubitus x-ray shows no layering. No need for thoracentesis at this time. Patient did well during the course of her stay. At discharge arrangements for nebulizer machine and COPD medication was provided. At discharge she will continue with Brovana 1 unit dose twice daily and Xopenex 1 unit dose 3 times a day as needed for shortness of breath. Additional medication of Spiriva 1 puff daily was recommended by pulmonology. At discharge she will continue with prednisone 10 mg 1 pill twice daily for 5 days then 1 pill once daily for 5 days. Patient will continue with home oxygen to maintain sats above 93%. Due to her multiple medical issues pulmonology also recommends Augmentin 500 mg twice daily for 7 days. Recommendation is for the patient follow up with pulmonology in 1-2 weeks to follow up this hospitalization. Patient's is seen at [facility] in [place]. She may restart her cancer chemotherapy medication. Recommend to follow up with cancer team in 1-2 weeks to follow up this hospitalization and continue her care. Recommend to recheck chest x-ray in 2-4 weeks to monitor her progress. Patient with CAD with chronic diastolic CHF. Echocardiogram shows moderate aortic stenosis, mild pulmonary hypertension and ejection fraction 56%. At discharge she will continue with 1500 cc per day fluid restriction and low-salt diet. Patient may continue with Lasix 20 mg daily as needed for increase edema to the lower extremities. Recommend to monitor her weight daily. If her weight increases by more than 5 lb she is to contact cardiology or pulmonology for further recommendation. At discharge she will also continue with Plavix 75 mg daily and aspirin 81 mg daily. Recommend follow up with her resource recovery engineer and Pulmonary in 2-4 weeks to monitor progress. Patient with anemia of chronic disease. Recommend to recheck lab-CBC in 1-2 weeks to monitor progress. Patient with GERD. Patient may continue with Pepcid 20 mg daily. As mentioned above patient with history of thyroid cancer with metastasis to the lung on chemotherapy. Patient seen at [facility] in [place]. At discharge she will continue with her chemotherapy medications Tafinlar 75 mg 2 pills twice daily and Mekinist 2 mg at bedtime. Recommend follow up with [facility] cancer team to further address and monitor closely. Patient had diarrhea prior to leaving. C diff culture negative. Patient will be provided lactobacillus 1 pill 3 times a day. Patient may use over-the- counter Imodium as needed. Vital Signs/Physical Exam: Temp Pulse Resp BP Pulse Ox 97.8 F 79 16 106/56 L 98 10/24/19 12:10/24/19 12:10/24/19 12:10/24/19 12:10/24/19 12:00 General: Alert, In no apparent distress, Oriented x3 HEENT: Atraumatic Neck: Supple Respiratory: Clear to auscultation bilaterally, Normal air movement Cardiovascular: Normal pulses, Regular rate/rhythm Gastrointestinal: Normal bowel sounds, Soft and benign, Non-distended, No tenderness, No masses, No rebound, No guarding Musculoskeletal: No erythema, No tenderness, No warmth Integumentary: No tenderness/swelling, No erythema, No warmth, No cyanosis Neurological: Normal speech, Normal strength at 5/5 x4 extr, Normal tone, Normal affect Laboratory Data at Discharge: WBC 5.3 K/uL (4.3-10.9) D 10/24/19 04:22 Hgb 9.3 g/dL (12.0-15.0) L 10/24/19 04:22 Hct 28.9 % (36.0-45.0) L 10/24/19 04:22 Plt Count 175 K/uL (152-406) D 10/24/19 04:22 PT 12.4 SECONDS (9.5-12.5) 10/21/19 17:30 INR 1.05 10/21/19 17:30 APTT 32.1 SECONDS (24.3-36.9) 10/21/19 17:30 Sodium 141 mmol/L (136-145) 10/24/19 04:22 Potassium 3.8 mmol/L (3.5-5.1) 10/24/19 04:22 BUN 10 mg/dL (7-18) 10/24/19 04:22 Creatinine 0.38 mg/dL (0.55-1.3) L 10/24/19 04:22 Glucose 108 mg/dL (74-106) H 10/24/19 04:22 Phosphorus 2.5 mg/dL (2.5-4.9) 10/23/19 06:30 Magnesium 2.2 mg/dL (1.8-2.4) 10/24/19 04:22 Total Bilirubin 0.4 mg/dL (0.2-1.0) 10/23/19 06:30 AST 154 U/L (15-37) H 10/23/19 06:30 ALT 96 U/L (12-78) H 10/23/19 06:30 Alkaline Phosphatase 164 U/L (45-117) H 10/23/19 06:30 Triglycerides 61 mg/dL (<150) 10/22/19 04:37 Cholesterol 64 mg/dL (<200) 10/22/19 04:37 HDL Cholesterol 30 mg/dL (40-60) L 10/22/19 04:37 Cholesterol/HDL Ratio 2.13 10/22/19 04:37 Lipase 80 U/L (73-393) 10/21/19 17:30 Home Medications: Acetaminophen [Tylenol Extra Strength] 500 mg PO BEDTIME 10/21/19 Aspirin [Adult Low Dose Aspirin EC] 81 mg PO DAILY 10/21/19 Clopidogrel Bisulfate [Plavix] 75 mg PO DAILY 10/21/19 Dabrafenib Mesylate [Tafinlar] 2 cap PO BID 10/21/19 Famotidine [Pepcid] 20 mg PO DAILY 10/21/19 Levothyroxine [Synthroid*] 125 mcg PO DAILY 10/21/19 Trametinib Dimethyl Sulfoxide [Mekinist] 2 mg PO BEDTIME 10/21/19 Amox/Clavulanate [Augmentin 500-125 mg Tab*] 500 mg PO BID #12 tab 10/24/19 Arformoterol Tartrate [Brovana] 15 mcg IH BIDRESP #60 vial.neb 10/24/19 Furosemide [Lasix*] 20 mg PO DAILY PRN #30 tab 10/24/19 Lactobacillus Acidophilus [Acidophilus Lactobacilli] 1 each PO TID #90 capsule 10/24/19 Levalbuterol [Xopenex*] 3 ml NEB TID PRN #90 vial 10/24/19 predniSONE [Deltasone*] 10 mg PO SEECOM #15 tab 10/24/19 New Medications: Amox/Clavulanate [Augmentin 500-125 mg Tab*] 500 mg PO BID #12 tab Arformoterol Tartrate [Brovana] 15 mcg IH BIDRESP #60 vial.neb Furosemide [Lasix*] 20 mg PO DAILY PRN #30 tab PRN Reason: Shortness Of Breath Lactobacillus Acidophilus [Acidophilus Lactobacilli] 1 each PO TID #90 capsule Levalbuterol [Xopenex*] 3 ml NEB TID PRN #90 vial PRN Reason: Shortness Of Breath predniSONE [Deltasone*] 10 mg PO SEECOM #15 tab Patient Discharge Instructions: 1. Recommend follow up with PCP in 1-2 weeks to follow up this hospitalization. 2. Patient presented with shortness of breath secondary to right-sided partial loculated pleural effusion with history of lung metastasis from thyroid cancer. Patient on chemotherapy. Patient seen and evaluated by pulmonology. Chest ultrasound showed loculated pleural effusion. Decubitus x-ray shows no layering. No need for thoracentesis at this time. Patient did well during the course of her stay. At discharge arrangements for nebulizer machine and COPD medication was provided. At discharge she will continue with Brovana 1 unit dose twice daily and Xopenex 1 unit dose 3 times a day as needed for shortness of breath. Additional medication of Spiriva 1 puff daily was recommended by pulmonology. At discharge she will continue with prednisone 10 mg 1 pill twice daily for 5 days then 1 pill once daily for 5 days. Patient will continue with home oxygen to maintain sats above 93%. Due to her multiple medical issues pulmonology also recommends Augmentin 500 mg twice daily for 7 days. Recommendation is for the patient follow up with pulmonology in 1-2 weeks to follow up this hospitalization. Patient's is seen at [facility] in [place]. She may restart her cancer chemotherapy medication. Recommend to follow up with cancer team in 1-2 weeks to follow up this hospitalization and continue her care. Recommend to recheck chest x-ray in 2-4 weeks to monitor her progress. 3. Patient with CAD with chronic diastolic CHF. Echocardiogram shows moderate aortic stenosis, mild pulmonary hypertension and ejection fraction 56%. At discharge she will continue with 1500 cc per day fluid restriction and low-salt diet. Patient may continue with Lasix 20 mg daily as needed for increase edema to the lower extremities. Recommend to monitor her weight daily. If her weight increases by more than 5 lb she is to contact cardiology or pulmonology for further recommendation. At discharge she will also continue with Plavix 75 mg daily and aspirin 81 mg daily. Recommend follow up with cardiology and pulmonology in 2-4 weeks to monitor progress. 4. Patient with anemia of chronic disease. Recommend to recheck lab-CBC in 1-2 weeks to monitor progress. 5. Patient with GERD. Patient may continue with Pepcid 20 mg daily. 6. As mentioned above patient with history of thyroid cancer with metastasis to the lung on chemotherapy. Patient seen at [facility] in [place]. At discharge she will continue with her chemotherapy medications Tafinlar 75 mg 2 pills twice daily and Mekinist 2 mg at bedtime. Recommend follow up with [facility] cancer team to further address and monitor closely. 7. Patient had diarrhea prior to leaving. C diff culture negative. Patient will be provided lactobacillus 1 pill 3 times a day. Patient may use [id number] Imodium as needed. Diet: AHA Activity: Ad jennifer Time spent managing pt's care (in minutes): 55
== END 2019-10-24 15:00 | disposition home health service (06) | DRG 187 ==
LOC: ER 17:09 → ERHOLD 23:08 → 3RD-ICU 10-22 00:15 → 4TH 10-22 15:35
PROVIDERS: ADMIT Hospitalist; ATTEND Family Medicine
DX: J90 Pleural effusion, not elsewhere classified (principal); J44.1 Chronic obstructive pulmonary disease with (acute) exacerbation; C78.00 Secondary malignant neoplasm of unspecified lung; I50.32 Chronic diastolic (congestive) heart failure; C73 Malignant neoplasm of thyroid gland; I11.0 Hypertensive heart disease with heart failure; K21.9 Gastro-esophageal reflux disease without esophagitis; I25.10 Atherosclerotic heart disease of native coronary artery without angina pectoris; D63.8 Anemia in other chronic diseases classified elsewhere; I25.2 Old myocardial infarction; Z99.81 Dependence on supplemental oxygen
CPT/HCPCS: 36415; 71045; 71046; 71275; 76604; 80048; 80053; 80061; 80076; 80202; 81003; 81015; 82550; 82553; 82607; 82728; 82805; 83540; 83605; 83690; 83735; 83880; 84100; 84145; 84466; 84484; 85025; 85610; 85730; 86140; 87040; 87324; 87449; 87804; 93005; 93306; 94640; 94760; 96365; 96366; 96368; 96375; 97110; 97116; 97161; 99285; J0696; J1650; J2543; J2930; J3475; J7030; J7040; J7512; J7605; Q9967

== ENCOUNTER 2019-11-21 11:53 | Emergency (ER) | payer OTHER ==
--- OUTSIDE RECORDS SUMMARY | 2019-11-21 11:57 | XMS REPORT | Encounter Summary ---
:1940 Author Care Team Providers Name Role Phone Luis E Armstrong MD Primary Care Provider [phone] Reason for Visit TCM (Transitional Care Management) Instructions 1. Secondary malignant neoplasm of lung 2. Adverse reaction to drug Discussion Note: None recorded.Patient educational handouts: No information available. Plan of Care Reminders Provider Appointments None recorded. Lab None recorded. Referral None recorded. Procedures None recorded. Surgeries None recorded. Imaging None recorded. Medications Name Start Date Advair Diskus 500 mcg-50 mcg/dose powder for inhalation 04/29/2019 airial mis compact amoxicillin 500 mg-potassium clavulanate 125 mg tablet aspirin 81 mg tablet,delayed release Take 1 tablet every day by oral route. atorvastatin 40 mg tablet Brovana 15 mcg/2 mL solution for nebulization clopidogrel 75 mg tablet Take 1 tablet every day by oral route. fluocinonide 0.05 % topical solution furosemide 20 mg tablet levalbuterol 0.63 mg/3 mL solution for nebulization levothyroxine 125 mcg tablet Mekinist 2 mg tablet nitroglycerin 0.4 mg sublingual tablet ondansetron 4 mg disintegrating tablet Pepcid prednisone 10 mg tablet prednisone 5 mg tablet Stool Softener sulfamethoxazole 400 mg-trimethoprim 80 mg tablet Take 2 tablets every 12 hours by oral route. sulfamethoxazole 800 mg-trimethoprim 160 mg tablet Tafinlar 75 mg capsule tramadol 50 mg tablet Medications Administered None recorded. Vitals Height Weight BMI Blood Pressure 63 in 133 lbs 23.6 kg/m2 Results Lab Results None recorded. Allergies Code Code System Name Reaction Severity Status Onset NKDA Problems Name Status Onset Date Source Coronary Arteriosclerosis Active 08/29/2018 Psoriasis Active 08/29/2018 Cervical Lymphadenopathy Active 08/29/2018 History of Malignant Neoplasm of Thyroid Active 08/29/2018 Paronychia of Finger Active 04/29/2019 Secondary Malignant Neoplasm of Lung Active 11/04/2019 Adverse Reaction to Drug Active 11/04/2019 Gallstone Active Encounter Urinary Tract Infectious Disease [...] Tobacco Smoking Status Former Smoker Past Encounters 11/04/2019 Secondary Malignant Neoplasm of Lung; Adverse Reaction to Drug Luis E Armstrong MD: [address] [place] [address] [address], [place] [address], Ph. History of Present Illness Note: CC recent discharge from hosp in [place] for pneumonia
hpi pt taking chemo for metlung cancer from the thyroid she has been doing ok until she took the chemo pill today and started shaking
cc pneumonia& lt;br>hpi no cough today
cc reaction to the chemo
hpi pt having chills and shaking
ros
gen above
cv stable&lt ;br>lungs clearReview of Systems: ROS as noted in the HPI Review of Systems None recorded. Physical Exam Dr. Armstrong Brief Adult Exam - M/F Reported By: Patient Constitutional: General Appearance: well-nourished. Level of Distress: moderate distress. Ambulation: ambulating normally Lungs: Auscultation: breath sounds normal, good air movement, CTA except as noted, no wheezing, no rales/crackles, no rhonchi Cardiovascular: Heart Auscultation: tachycardia Notes: generalized chills and shakes has O2 concentrator
--- OUTSIDE RECORDS SUMMARY | 2019-11-21 11:57 | XMS REPORT ---
:1940 Author Organization [facility] Address [address] [place] [address] [address]. [address] [place] [address] Care Team Providers Name Role Phone TRACEY MI Unavailable Unavailable CATIE MAYA Unavailable Unavailable Problems This patient has no known problems. Allergies, Adverse Reactions, Alerts This patient has no known allergies or adverse reactions. Medications This patient has no known medications. Results Test Description Test Time Test Comments Text Results Atomic Results Result Comments TISSUE EXAM 2019-03-02 14:54:00 Surgical Pathology Report Case: [id number] Authorizing Provider: Tracey Mi MD Collected: 02/13/2019 1036 Ordering Location: [facility] Received: 02/13/2019 1537 PERIOPERATIVE SERVICES Pathologist: Wilfred Paz MD Specimen: Plaque, Right carotic plaque ARTERY, RIGHT CAROTID, ENDARTERECTOMY:CALCIFIC ATHEROSCLEROTIC PLAQUE WITH INTRAPLAQUE HEMORRHAGE Signing Pathologist Direct Phone Line: [phone] signed by Wilfred Paz MD on 03/02/2019 at 2:54 [id number]; [id number] of right carotid artery Right carotid plaque Specimen is received in saline labeled with the patient's information and labeled "right carotid plaque" and consists of a tubular shaped segment of calcified tissue measuring 2.6 cm in length and 0.6 cm in diameter. [employer] Consultant sections are submitted in A1 for decalcification. CG/ewPerformed BASIC METABOLIC PANEL 2019-02-15 07:02:00 Test Item Value Reference Range Comments SODIUM (BEAKER) (test 137 meq/L 136-145 kwkn=312) POTASSIUM (BEAKER) (test 4.0 meq/L 3.5-5.1 Specimen slightly hemolyzed vdwz=864) CHLORIDE (BEAKER) (test 109 meq/L 98-107 dqdd=032) CO2 (BEAKER) (test 19 meq/L 22-29 lezn=494) BLOOD UREA NITROGEN 20 mg/dL 7-21 (BEAKER) (test fdqx=822) CREATININE (BEAKER) (test 0.57 mg/dL 0.57-1.25 Specimen slightly hemolyzed okpt=564) GLUCOSE RANDOM (BEAKER) 100 mg/dL 70-105 (test xegs=088) CALCIUM (BEAKER) (test 8.5 mg/dL 8.4-10.2 jdgu=332) EGFR (BEAKER) (test 103 mL/min/1.73 sq m ESTIMATED GFR IS NOT hzya=4112) ACCURATE CREATININE CLEARANCE IN PREDICTING GLOMERULAR FILTRATION RATE. ESTIMATED GFR IS NOT APPLICABLE FOR DIALYSIS PATIENTS. CBC (HEMOGRAM ONLY)2019-02-15 06:45:00 Test Item Value Reference Range Comments WHITE BLOOD CELL COUNT 6.7 K/ L 3.5-10.5 (BEAKER) (test jgnp=577) RED BLOOD CELL COUNT (BEAKER) 4.00 M/ L 3.93-5.22 (test pmye=353) HEMOGLOBIN (BEAKER) (test 11.5 GM/DL 11.2-15.7 ftan=484) HEMATOCRIT (BEAKER) (test 38.8 % 34.1-44.9 nohu=286) MEAN CORPUSCULAR VOLUME 97.0 fL 79.4-94.8 Discordant results compared (BEAKER) (test njkg=245) to previous result; clinical correlation required. MEAN CORPUSCULAR HEMOGLOBIN 28.8 pg 25.6-32.2 (BEAKER) (test irxg=710) MEAN CORPUSCULAR HEMOGLOBIN 29.6 GM/DL 32.2-35.5 CONC (BEAKER) (test xsmn=306) RED CELL DISTRIBUTION WIDTH 13.8 % 11.7-14.4 (BEAKER) (test igfw=222) PLATELET COUNT (BEAKER) (test 168 K/CU MM 150-450 qpmo=957) MEAN PLATELET VOLUME (BEAKER) 10.5 fL 9.4-12.3 (test ggjv=337) NUCLEATED RED BLOOD CELLS 0 /100 WBC 0-0 (BEAKER) (test fkwp=297) PLATELET AGGREGATION: FUNCTION [id number] 11:39:00 Test Item Value Reference Range Comments WEAK ADP RESULT(BEAKER) (test 62 % 60-91 whrp=9914) PLATELET FUNCTION SCREEN 60-100% indicates normal INTERP (BEAKER) (test platelet function yceg=4593) [id number]-[id number]-[id number] (BEAKER) Axel [place] M.D. (electonic (test wapc=2493) signature) PLATELET COUNT AGG (BEAKER) 184 K/CU MM 150-450 (test oeud=5167) Platelet Function Screen results may be falsely low with platelet counts<100, 000/cu mm.CBC W/PLT COUNT & AUTO [id number] 06:32:00 Test Item Value Reference Range Comments WHITE BLOOD CELL COUNT (BEAKER) (test kubb=680) 7.8 K/ L 3.5-10.5 RED BLOOD CELL COUNT (BEAKER) (test snra=965) 3.93 M/ L 3.93-5.22 HEMOGLOBIN (BEAKER) (test vxvj=358) 11.6 GM/DL 11.2-15.7 HEMATOCRIT (BEAKER) (test czoa=095) 34.9 % 34.1-44.9 MEAN CORPUSCULAR VOLUME (BEAKER) (test iskx=016) 88.8 fL 79.4-94.8 MEAN CORPUSCULAR HEMOGLOBIN (BEAKER) (test 29.5 pg 25.6-32.2 rewe=134) MEAN CORPUSCULAR HEMOGLOBIN CONC (BEAKER) (test 33.2 GM/DL 32.2-35.5 xrgr=579) RED CELL DISTRIBUTION WIDTH (BEAKER) (test 13.2 % 11.7-14.4 gdot=214) PLATELET COUNT (BEAKER) (test awbj=226) 172 K/CU MM 150-450 MEAN PLATELET VOLUME (BEAKER) (test zzro=167) 10.5 fL 9.4-12.3 NUCLEATED RED BLOOD CELLS (BEAKER) (test 0 /100 WBC 0-0 tzoc=865) NEUTROPHILS RELATIVE PERCENT (BEAKER) (test 86 % xulm=669) LYMPHOCYTES RELATIVE PERCENT (BEAKER) (test 7 % xbfo=659) MONOCYTES RELATIVE PERCENT (BEAKER) (test 6 % vyyy=797) EOSINOPHILS RELATIVE PERCENT (BEAKER) (test 0 % lvmd=449) BASOPHILS RELATIVE PERCENT (BEAKER) (test 0 % mnqo=627) NEUTROPHILS ABSOLUTE COUNT (BEAKER) (test 6.71 K/ L 1.56-6.13 kozj=664) LYMPHOCYTES ABSOLUTE COUNT (BEAKER) (test 0.53 K/ L 1.18-3.74 grhh=069) MONOCYTES ABSOLUTE COUNT (BEAKER) (test 0.49 K/ L 0.24-0.36 rwtn=998) EOSINOPHILS ABSOLUTE COUNT (BEAKER) (test 0.01 K/ L 0.04-0.36 bffw=187) BASOPHILS ABSOLUTE COUNT (BEAKER) (test 0.02 K/ L 0.01-0.08 kofx=705) IMMATURE GRANULOCYTES-RELATIVE PERCENT (BEAKER) 0 % 0-1 (test whaq=7102) [id number] 05:53:00 Test Item Value Reference Range Comments PHOSPHORUS (BEAKER) (test xicn=559) 3.4 mg/dL 2.3-4.7 [id number] 05:53:00 Test Item Value Reference Range Comments MAGNESIUM (BEAKER) (test sxfd=686) 1.9 mg/dL 1.6-2.6 BASIC METABOLIC [id number] 05:53:00 Test Item Value Reference Range Comments SODIUM (BEAKER) (test 141 meq/L 136-145 plah=770) POTASSIUM (BEAKER) (test 3.1 meq/L 3.5-5.1 wego=091) CHLORIDE (BEAKER) (test 107 meq/L 98-107 sctl=680) CO2 (BEAKER) (test 25 meq/L 22-29 vtvk=603) BLOOD UREA NITROGEN 13 mg/dL 7-21 (BEAKER) (test igcw=089) CREATININE (BEAKER) (test 0.51 mg/dL 0.57-1.25 xkwo=305) GLUCOSE RANDOM (BEAKER) 108 mg/dL 70-105 (test xrtz=718) CALCIUM (BEAKER) (test 8.9 mg/dL 8.4-10.2 nuyu=139) EGFR (BEAKER) (test 117 mL/min/1.73 sq m ESTIMATED GFR IS NOT uijp=9258) ACCURATE CREATININE CLEARANCE IN PREDICTING GLOMERULAR FILTRATION RATE. ESTIMATED GFR IS NOT APPLICABLE FOR DIALYSIS PATIENTS. BLOOD GAS, [id number] 05:39:00 Test Item Value Reference Range Comments PH ARTERIAL (BEAKER) (test zbkm=635) 7.43 7.35-7.45 PCO2 ARTERIAL (BEAKER) (test zula=829) 37 mmHg 35-45 PO2 ARTERIAL (BEAKER) (test gbav=581) 153 mmHg 80-90 O2 SATURATION ARTERIAL (BEAKER) (test dqwy=214) 99.0 % 96.0-97.0 HCO3 ARTERIAL (BEAKER) (test hikx=787) 24 mmol/L 21-29 BASE EXCESS ARTERIAL (BEAKER) (test jcux=383) 0.0 mmol/L -2.0-3.0 PATIENT TEMPERATURE (BEAKER) (test xukk=7507) 37.3 C FIO2 (BEAKER) (test zgac=5504) 28.0 % BLOOD GAS, [id number] 23:56:00 Test Item Value Reference Range Comments PH ARTERIAL (BEAKER) (test frvj=425) 7.44 7.35-7.45 PCO2 ARTERIAL (BEAKER) (test ozmn=224) 37 mmHg 35-45 PO2 ARTERIAL (BEAKER) (test bjbb=186) 54 mmHg 80-90 O2 SATURATION ARTERIAL (BEAKER) (test wzdq=574) 89.3 % 96.0-97.0 HCO3 ARTERIAL (BEAKER) (test xszb=086) 24 mmol/L 21-29 BASE EXCESS ARTERIAL (BEAKER) (test hmzd=804) 0.6 mmol/L -2.0-3.0 PATIENT TEMPERATURE (BEAKER) (test fehz=9788) 37.2 C FIO2 (BEAKER) (test okpw=9358) 21.0 % GLUCOSE-STAT [id number] 23:56:00 Test Item Value Reference Range Comments GLUCOSE RANDOM (BEAKER) (test lwms=150) 116 mg/dL 70-110 POCT-GLUCOSE [id number] 18:31:00 Test Item Value Reference Range Comments POC-GLUCOSE METER (BEAKER) 133 mg/dL 70-[address] [facility] [address] [place] [address] (test pxfb=2287) [facility] [address] RAD, CHEST, 1 VIEW, NON [id number] 14:05:00Reason for exam:->post op carotidShould this be [...] MDReport Verified Date/Time: 02/13/2019 14:05:47 Reading Location: [facility] Radiology Reading Room LACTIC ACID, [id number] 13:39:00 Test Item Value Reference Range Comments LACTATE BLOOD ARTERIAL (2) (BEAKER) (test 0.9 mmol/L 0.5-2.2 vefb=2667) BASIC METABOLIC [id number] 13:07:00 Test Item Value Reference Range Comments SODIUM (BEAKER) (test 139 meq/L 136-145 hmie=089) POTASSIUM (BEAKER) (test 3.3 meq/L 3.5-5.1 dahb=304) CHLORIDE (BEAKER) (test 109 meq/L 98-107 shhu=012) CO2 (BEAKER) (test 22 meq/L 22-29 unhc=378) BLOOD UREA NITROGEN 9 mg/dL 7-21 (BEAKER) (test urmk=124) CREATININE (BEAKER) (test 0.56 mg/dL 0.57-1.25 hqed=258) GLUCOSE RANDOM (BEAKER) 142 mg/dL 70-105 (test ouuc=843) CALCIUM (BEAKER) (test 7.9 mg/dL 8.4-10.2 miez=978) EGFR (BEAKER) (test 105 mL/min/1.73 sq m ESTIMATED GFR IS NOT arhm=9865) ACCURATE CREATININE CLEARANCE IN PREDICTING GLOMERULAR FILTRATION RATE. ESTIMATED GFR IS NOT APPLICABLE FOR DIALYSIS PATIENTS. [id number] 13:01:00 Test Item Value Reference Range Comments PHOSPHORUS (BEAKER) (test drlq=076) 3.4 mg/dL 2.3-4.7 [id number] 13:01:00 Test Item Value Reference Range Comments MAGNESIUM (BEAKER) (test nfev=589) 1.8 mg/dL 1.6-2.6 [id number] 13:00:00 Test Item Value Reference Range Comments PROTIME (BEAKER) (test gnni=326) 15.3 seconds 11.7-14.7 INR (BEAKER) (test xswz=269) 1.2 <=5.9 PARTIAL THROMBOPLASTIN TIME (BEAKER) (test 27.8 seconds 22.5-36.0 unhg=881) RECOMMENDED COUMADIN/WARFARIN INR THERAPY RANGESSTANDARD DOSE: 2.0 - 3.0 Includes: PROPHYLAXIS forvenous thrombosis, systemic embolization; TREATMENT for venous thrombosis and/or pulmonary embolus.HIGH RISK: Target INR is 2.5-3.5 for patients with mechanical heart valves.CBC (HEMOGRAM ONLY)2019-02-13 12:45:00 Test Item Value Reference Range Comments WHITE BLOOD CELL COUNT (BEAKER) (test odil=543) 7.7 K/ L 3.5-10.5 RED BLOOD CELL COUNT (BEAKER) (test ivti=837) 3.82 M/ L 3.93-5.22 HEMOGLOBIN (BEAKER) (test topt=380) 11.3 GM/DL 11.2-15.7 HEMATOCRIT (BEAKER) (test qwon=104) 34.0 % 34.1-44.9 MEAN CORPUSCULAR VOLUME (BEAKER) (test lviz=515) 89.0 fL 79.4-94.8 MEAN CORPUSCULAR HEMOGLOBIN (BEAKER) (test 29.6 pg 25.6-32.2 xcyf=152) MEAN CORPUSCULAR HEMOGLOBIN CONC (BEAKER) (test 33.2 GM/DL 32.2-35.5 hukw=838) RED CELL DISTRIBUTION WIDTH (BEAKER) (test 13.5 % 11.7-14.4 ydax=295) PLATELET COUNT (BEAKER) (test mkao=807) 159 K/CU MM 150-450 MEAN PLATELET VOLUME (BEAKER) (test kxbq=973) 10.2 fL 9.4-12.3 NUCLEATED RED BLOOD CELLS (BEAKER) (test 0 /100 WBC 0-0 eeir=954) BLOOD GAS, [id number] 12:39:00 Test Item Value Reference Range Comments PH ARTERIAL (BEAKER) (test nwrv=946) 7.37 7.35-7.45 PCO2 ARTERIAL (BEAKER) (test ihyu=078) 40 mmHg 35-45 PO2 ARTERIAL (BEAKER) (test ymji=957) 99 mmHg 80-90 O2 SATURATION ARTERIAL (BEAKER) (test rkch=860) 97.5 % 96.0-97.0 HCO3 ARTERIAL (BEAKER) (test mjdb=554) 23 mmol/L 21-29 BASE EXCESS ARTERIAL (BEAKER) (test egiw=066) -2.7 mmol/L -2.0-3.0 PATIENT TEMPERATURE (BEAKER) (test uzng=6967) 36.5 C FIO2 (BEAKER) (test kfel=7219) 28.0 % [id number] 06:48:00 Test Item Value Reference Range Comments MAGNESIUM (BEAKER) (test salm=151) 1.9 mg/dL 1.6-2.6 BASIC METABOLIC [id number] 06:48:00 Test Item Value Reference Range Comments SODIUM (BEAKER) (test 142 meq/L 136-145 ccme=506) POTASSIUM (BEAKER) (test 3.5 meq/L 3.5-5.1 gtqg=392) CHLORIDE (BEAKER) (test 108 meq/L 98-107 gjbi=064) CO2 (BEAKER) (test 25 meq/L 22-29 yfyf=123) BLOOD UREA NITROGEN 14 mg/dL 7-21 (BEAKER) (test kqqe=727) CREATININE (BEAKER) (test 0.63 mg/dL 0.57-1.25 oyzu=268) GLUCOSE RANDOM (BEAKER) 111 mg/dL 70-105 (test hydv=152) CALCIUM (BEAKER) (test 9.4 mg/dL 8.4-10.2 bnzq=575) EGFR (BEAKER) (test 91 mL/min/1.73 sq m ESTIMATED GFR IS NOT cdoe=4686) ACCURATE CREATININE CLEARANCE IN PREDICTING GLOMERULAR FILTRATION RATE. ESTIMATED GFR IS NOT APPLICABLE FOR DIALYSIS PATIENTS. CBC W/PLT COUNT & AUTO [id number] 06:36:00 Test Item Value Reference Range Comments WHITE BLOOD CELL COUNT (BEAKER) (test kayv=512) 5.8 K/ L 3.5-10.5 RED BLOOD CELL COUNT (BEAKER) (test bmeq=596) 4.31 M/ L 3.93-5.22 HEMOGLOBIN (BEAKER) (test jmnk=001) 12.7 GM/DL 11.2-15.7 HEMATOCRIT (BEAKER) (test wrgp=374) 38.1 % 34.1-44.9 MEAN CORPUSCULAR VOLUME (BEAKER) (test oqsd=375) 88.4 fL 79.4-94.8 MEAN CORPUSCULAR HEMOGLOBIN (BEAKER) (test 29.5 pg 25.6-32.2 sfud=586) MEAN CORPUSCULAR HEMOGLOBIN CONC (BEAKER) (test 33.3 GM/DL 32.2-35.5 wklk=329) RED CELL DISTRIBUTION WIDTH (BEAKER) (test 13.2 % 11.7-14.4 rkvg=148) PLATELET COUNT (BEAKER) (test czxq=497) 195 K/CU MM 150-450 MEAN PLATELET VOLUME (BEAKER) (test lvnz=055) 10.4 fL 9.4-12.3 NUCLEATED RED BLOOD CELLS (BEAKER) (test 0 /100 WBC 0-0 grwu=031) NEUTROPHILS RELATIVE PERCENT (BEAKER) (test 79 % fkwz=931) LYMPHOCYTES RELATIVE PERCENT (BEAKER) (test 10 % uxas=895) MONOCYTES RELATIVE PERCENT (BEAKER) (test 8 % oiuv=317) EOSINOPHILS RELATIVE PERCENT (BEAKER) (test 2 % vbpj=605) BASOPHILS RELATIVE PERCENT (BEAKER) (test 1 % xpbz=657) NEUTROPHILS ABSOLUTE COUNT (BEAKER) (test 4.57 K/ L 1.56-6.13 uuwi=432) LYMPHOCYTES ABSOLUTE COUNT (BEAKER) (test 0.58 K/ L 1.18-3.74 yxep=425) MONOCYTES ABSOLUTE COUNT (BEAKER) (test 0.45 K/ L 0.24-0.36 uayj=732) EOSINOPHILS ABSOLUTE COUNT (BEAKER) (test 0.10 K/ L 0.04-0.36 zhcx=885) BASOPHILS ABSOLUTE COUNT (BEAKER) (test 0.06 K/ L 0.01-0.08 aioh=170) IMMATURE GRANULOCYTES-RELATIVE PERCENT (BEAKER) 0 % 0-1 (test xrxd=3217) POCT-GLUCOSE [id number] 05:55:00 Test Item Value Reference Range Comments POC-GLUCOSE METER (BEAKER) 103 mg/dL 70-[address] [facility] [address] [facility] (test ncqj=4935) [facility] [address] PROTHROMBIN [id number] 13:00:00 Test Item Value Reference Range Comments PROTIME (BEAKER) (test lgvz=057) 13.4 seconds 11.7-14.7 INR (BEAKER) (test xixw=074) 1.0 <=5.9 RECOMMENDED COUMADIN/WARFARIN INR THERAPY RANGESSTANDARD DOSE: 2.0 - 3.0 Includes: PROPHYLAXIS forvenous thrombosis, systemic embolization; TREATMENT for venous thrombosis and/or pulmonary embolus.HIGH RISK: Target INR is 2.5-3.5 for patients with mechanical heart valves.BASIC METABOLIC [id number] 07:26: 00 Test Item Value Reference Range Comments SODIUM (BEAKER) (test 139 meq/L 136-145 hqeq=217) POTASSIUM (BEAKER) (test 4.3 meq/L 3.5-5.1 emay=224) CHLORIDE (BEAKER) (test 110 meq/L 98-107 mrxq=068) CO2 (BEAKER) (test 24 meq/L 22-29 bheg=101) BLOOD UREA NITROGEN 21 mg/dL 7-21 (BEAKER) (test rogv=984) CREATININE (BEAKER) (test 0.65 mg/dL 0.57-1.25 afko=939) GLUCOSE RANDOM (BEAKER) 106 mg/dL 70-105 (test mjry=065) CALCIUM (BEAKER) (test 8.6 mg/dL 8.4-10.2 cezi=282) EGFR (BEAKER) (test 88 mL/min/1.73 sq m ESTIMATED GFR IS NOT rtum=2145) ACCURATE CREATININE CLEARANCE IN PREDICTING GLOMERULAR FILTRATION RATE. ESTIMATED GFR IS NOT APPLICABLE FOR DIALYSIS PATIENTS. [id number] 07:09:00 Test Item Value Reference Range Comments MAGNESIUM (BEAKER) (test bsav=140) 2.7 mg/dL 1.6-2.6 CBC (HEMOGRAM ONLY)2018-03-28 05:50:00 Test Item Value Reference Range Comments WHITE BLOOD CELL COUNT (BEAKER) (test axob=932) 6.5 K/ L 3.5-10.5 RED BLOOD CELL COUNT (BEAKER) (test kuql=986) 3.90 M/ L 3.93-5.22 HEMOGLOBIN (BEAKER) (test kzqs=381) 11.1 GM/DL 11.2-15.7 HEMATOCRIT (BEAKER) (test zzxn=031) 34.7 % 34.1-44.9 MEAN CORPUSCULAR VOLUME (BEAKER) (test cosu=924) 89.0 fL 79.4-94.8 MEAN CORPUSCULAR HEMOGLOBIN (BEAKER) (test 28.5 pg 25.6-32.2 tixo=478) MEAN CORPUSCULAR HEMOGLOBIN CONC (BEAKER) (test 32.0 GM/DL 32.2-35.5 arwx=934) RED CELL DISTRIBUTION WIDTH (BEAKER) (test 13.9 % 11.7-14.4 syrj=287) PLATELET COUNT (BEAKER) (test xwmn=671) 194 K/CU MM 150-450 MEAN PLATELET VOLUME (BEAKER) (test rcqb=043) 10.4 fL 9.4-12.3 NUCLEATED RED BLOOD CELLS (BEAKER) (test 0 /100 WBC 0-0 secg=089) BASIC METABOLIC [id number] 18:24:00 Test Item Value Reference Range Comments SODIUM (BEAKER) (test 140 meq/L 136-145 zxop=908) POTASSIUM (BEAKER) (test 2.8 meq/L 3.5-5.1 qfuk=200) CHLORIDE (BEAKER) (test 115 meq/L 98-107 jqpm=455) CO2 (BEAKER) (test 21 meq/L 22-29 wvlo=819) BLOOD UREA NITROGEN 13 mg/dL 7-21 (BEAKER) (test ngau=043) CREATININE (BEAKER) (test 0.49 mg/dL 0.57-1.25 jgzx=911) GLUCOSE RANDOM (BEAKER) 97 mg/dL 70-105 (test btcc=600) CALCIUM (BEAKER) (test 6.3 mg/dL 8.4-10.2 jied=651) EGFR (BEAKER) (test 122 mL/min/1.73 sq m ESTIMATED GFR IS NOT rtxt=8160) ACCURATE CREATININE CLEARANCE IN PREDICTING GLOMERULAR FILTRATION RATE. ESTIMATED GFR IS NOT APPLICABLE FOR DIALYSIS PATIENTS. [id number] 18:20:00 Test Item Value Reference Range Comments PHOSPHORUS (BEAKER) (test bpcv=958) 3.3 mg/dL 2.3-4.7 [id number] 18:20:00 Test Item Value Reference Range Comments MAGNESIUM (BEAKER) (test ynto=177) 1.6 mg/dL 1.6-2.6 [id number] 11:48:00 Test Item Value Reference Range Comments ACTIVATED CLOTTING TIME [address] [facility] [address] (test ozyh=369) [place] [address]
[2019-11-21] MEDS ORDERED: LACTULOSE 20 GM/30 ML UCUP ONE ×2 (12:50→15:56)
[2019-11-21] MEDS ORDERED: BISACODYL 10 MG RECTAL SUPP ONE (12:50)
[2019-11-21] MEDS ORDERED: NA CHLORIDE 0.9% 1,000 ML ONE (12:50)
[2019-11-21 12:54] LABS: Absolute Lymphocytes (CBC) 0.5 K/uL (0.7-4.9); Basophils % 1.4 % (0-1.3); Hematocrit 31.9 % (36.0-45.0); Lymphocytes % 8.6 % (15.3-44.8); MPV 7.8 fL (7.6-11.3)
[2019-11-21 13:17] LABS: ALT/SGPT 17 U/L (12-78); AST/SGOT 25 U/L (15-37); Albumin 2.9 g/dL (3.4-5.0); Alkaline Phosphatase 98 U/L (45-117); BUN Blood Urea Nitrogen 9 mg/dL (7-18); Bicarbonate 25 mmol/L (21-32); Bilirubin Direct 0.2 mg/dL (0-0.2); Bilirubin Total 0.7 mg/dL (0.2-1.0); Glucose Level 103 mg/dL (74-106); Lipase 52 U/L (73-393); Potassium 3.7 mmol/L (3.5-5.1); Protein, Total 7.5 g/dL (6.4-8.2); Sodium Level 140 mmol/L (136-145)
[2019-11-21 14:57] LABS: Urine Blood TRACE (NEG); Urine Glucose NEGATIVE (NEG); Urine Protein NEGATIVE (NEG); Urine Specific Gravity 1.015 (1.005-1.030)
--- NOTE | 2019-11-21 15:19 | RAD REPORT ---
EXAM DESCRIPTION: CT - Abdomen Pelvis Wo Contrast - 11/21/2019 3:05 pm CLINICAL HISTORY: Abdominal pain. ABD PAIN COMPARISON: Abdomen Pelvis W Contrast dated 05/24/2019 TECHNIQUE: CT imaging of the abdomen and pelvis was performed without contrast. Solid organ and vasc ular assessment is limited due to lack of IV contrast. All CT scans are performed using dose optimization technique as appropriate and may include automated exposure control or mA/KV adjustment according to patient size. FINDINGS: Chronic irregular loculated right pleural effusion is again noted with nodularity along th e pleural surface. Irregular parenchymal opacification in the right lower lobe again seen. Several sm all nodules also present in the left lung base posteriorly. The liver, spleen, pancreas, adrenal glands and kidneys are within normal limits for a limited non-co ntrast examination.Cholecystectomy clips. No bowel obstruction, free air, free fluid or abscess. Prominent stool is seen in the rectosigmoid co araceli. Sigmoid diverticulosis without diverticulitis. The appendix is not identified as a discrete stru cture, however, no secondary findings of appendicitis are identified. The osseous structures are within normal limits. IMPRESSION: Moderate rectosigmoid fecal retention. A limited non-contrast examination was performed as detailed.
--- NOTE | 2019-11-21 15:39 | ER ---
Nurse's Notes [facility] Name: Jeanne Richter Age: 79 yrs Sex: Female : 1940 Arrival Date: 11/21/2019 Time: 11:56 Bed 25 Private MD: Diagnosis: Constipation Presentation: 11/21 12:05 Presenting complaint: Constipation x 2-3 weeks, last BM was 1 week ago. Transition of care: patient was not received from another setting of care. Onset of symptoms was November 21, 2019. Risk Assessment: Do you want to hurt yourself or someone else? Patient reports no desire to harm self or others. Initial Sepsis Screen: Does the patient meet any 2 criteria? Systolic BP < 90 mmHg. No. Patient's initial sepsis screen is negative. Does the patient have a suspected source of infection? No. Patient's initial sepsis screen is negative. Care prior to arrival: None. 12:05 Method Of Arrival: Ambulatory hb 12:05 Acuity: MAGNOLIA 3 hb Historical: - Allergies: 12:06 aprepitant; hb - Home Meds: 12:18 aspirin 81 mg Oral chew 1 tab once daily [Active]; atorvastatin 40 mg Oral tab 1 tab mg2 once daily [Active]; Celebrex Oral [Active]; Colace Oral [Active]; levothyroxine 100 mcg tab 1 tab once daily [Active]; nitroglycerin 0.4 mg Oral [Active]; Plavix 75 mg Oral tab 1 tab once daily [Active]; Prilosec Oral [Active]; Protonix 20 mg Oral TbEC 1 tab once daily [Active]; Synthroid Oral [Active]; - PMHx: 12:06 Hypothyroidism; Lung CA; thyroid CA; hb - PSHx: 12:06 Lobectomy; cardiac stents; Carotid surgery; hb - Immunization history:: Adult Immunizations up to date. - Coronavirus screen:: The patient has NOT traveled to [place], [place], or [place] in the past 14 days. The patient has NOT had contact with known/suspected case of Coronavirus? Proceed with normal triage procedures. - Social history:: Smoking status: Patient denies any tobacco usage or history of. - Family history:: not pertinent. - Ebola Screening: : No symptoms or risks identified at this time. Screenin:14 Abuse screen: Denies threats or abuse. Denies injuries from another. Nutritional mg2 screening: No deficits noted. Tuberculosis screening: No symptoms or risk factors identified. Fall Risk None identified. Assessment: 12:14 General: Appears in no apparent distress. comfortable, Behavior is calm, cooperative. mg2 Pain:. Neuro: Level of Consciousness is awake, alert, obeys commands, Oriented to person, place, time, situation. Cardiovascular: Capillary refill < 3 seconds Patient's skin is warm and dry. Respiratory: Airway is patent Respiratory effort is even, unlabored, Respiratory pattern is regular, symmetrical. GI: Bowel sounds present X 4 quads. Abd is soft and non tender Reports constipation. : No signs and/or symptoms were reported regarding the genitourinary system. EENT: No signs and/or symptoms were reported regarding the EENT system. Derm: Skin is intact, is healthy with good turgor, Skin is pink, warm \T\ dry. normal. Musculoskeletal: Circulation, motion, and sensation intact. Capillary refill < 3 seconds. 13:20 Reassessment: Patient appears in no apparent distress at this time. mg2 14:21 Reassessment: Patient appears in no apparent distress at this time. Patient and/or mg2 family updated on plan of care and expected duration. Pain level reassessed. Patient is alert, oriented x 3, equal unlabored respirations, skin warm/dry/pink. 16:09 Reassessment: patient said she passed stool twice, she feels better. mg2 Vital Signs: 12:06 BP 134 / 104; Pulse 98; Resp 18; Temp 97.9; Pulse Ox 98% on 3 lpm NC; Weight 61.23 kg; hb Height 5 ft. 4 in. (162.56 cm); Pain 4/10; 13:50 BP 159 / 90; Pulse 87; Resp 18; Pulse Ox 98% on R/A; mg2 14:50 BP 150 / 82; Pulse 81; Resp 18; Temp 98; Pulse Ox 100% on R/A; mg2 16:00 BP 149 / 80; Pulse 81; Resp 18; Temp 98; Pulse Ox 100% on R/A; mg2 12:06 Body Mass Index 23.17 (61.23 kg, 162.56 cm) ED Course: 11:56 Patient arrived in ED. mr 12:02 Noble Vega MD is Attending Physician. michela 12:06 Triage completed. hb 12:06 Arm band placed on. hb 12:14 Issac Horne, RN is Primary Nurse. mg2 12:14 Patient has correct armband on for positive identification. mg2 12:15 No provider procedures requiring assistance completed. mg2 12:45 Inserted saline lock: 20 gauge in left antecubital area, using aseptic technique. Blood mg2 collected. 15:05 Abdomen In Process Unspecified. EDMS 15:05 CT completed. Patient tolerated procedure well. Patient moved back from CT. bq 15:38 Marco A Alcazar MD is Referral Physician. michela 16:11 IV discontinued, intact, bleeding controlled, No redness/swelling at site. Pressure mg2 dressing applied. Administered Medications: 13:06 Drug: Lactulose 30 grams Volume: 45 ml; Route: PO; mg2 14:22 Follow up: Response: No adverse reaction mg2 13:06 Drug: Dulcolax Suppository 10 mg Route: MD; mg2 14:22 Follow up: Response: No adverse reaction mg2 13:08 Drug: NS 0.9% 1000 ml Route: IV; Rate: 1 bolus; Site: left antecubital; mg2 14:00 Follow up: Response: No adverse reaction; IV Status: Completed infusion; IV Intake: mg2 1000ml 16:08 Drug: Lactulose 30 grams Volume: 45 ml; Route: PO; mg2 16:08 Follow up: Response: No adverse reaction; Medication administered at discharge. mg2 Intake: 14:00 IV: 1000ml; Total: 1000ml. mg2 Outcome: 15:38 Discharge ordered by . michela 16:11 Discharged to home ambulatory, with family. mg2 16:11 Condition: stable 16:11 Discharge instructions given to patient, family, Instructed on discharge instructions, follow up and referral plans. medication usage, Demonstrated understanding of instructions, follow-up care, medications, Prescriptions given X 3. 16:11 Patient left the ED. mg2 Signatures: Dispatcher [employer] EDMS Noble Vega MD MD cha Rivera, Mary Nikky ArteagaElaine Carballo, NADER DOE Issac Horne, NADER RN mg2
--- NOTE | 2019-11-21 15:39 | EDPHYS ---
Physician Documentation [facility] Name: Jeanne Richter Age: 79 yrs Sex: Female : 1940 Arrival Date: 11/21/2019 Time: 11:56 Bed 25 Private MD: ED Physician Noble Vega HPI: 11/21 12:37 This 79 yrs old Female presents to ER via Ambulatory with complaints of michela Constipation. 12:37 The patient presents with abdominal pain in the upper abdomen, in the lower abdomen. michela Onset: The symptoms/episode began/occurred 7 day(s) ago. The symptoms do not radiate. Associated signs and symptoms: none. Severity of pain: At its worst the pain was mild moderate in the emergency department the pain is unchanged. The patient has experienced similar episodes in the past, a few times. Historical: - Allergies: 12:06 aprepitant; hb - Home Meds: 12:18 aspirin 81 mg Oral chew 1 tab once daily [Active]; atorvastatin 40 mg Oral tab 1 tab mg2 once daily [Active]; Celebrex Oral [Active]; Colace Oral [Active]; levothyroxine 100 mcg tab 1 tab once daily [Active]; nitroglycerin 0.4 mg Oral [Active]; Plavix 75 mg Oral tab 1 tab once daily [Active]; Prilosec Oral [Active]; Protonix 20 mg Oral TbEC 1 tab once daily [Active]; Synthroid Oral [Active]; - PMHx: 12:06 Hypothyroidism; Lung CA; thyroid CA; hb - PSHx: 12:06 Lobectomy; cardiac stents; Carotid surgery; hb - Immunization history:: Adult Immunizations up to date. - Coronavirus screen:: The patient has NOT traveled to [place], [place], or [place] in the past 14 days. The patient has NOT had contact with known/suspected case of Coronavirus? Proceed with normal triage procedures. - Social history:: Smoking status: Patient denies any tobacco usage or history of. - Family history:: not pertinent. - Ebola Screening: : No symptoms or risks identified at this time. ROS: 12:37 Constitutional: Negative for fever, chills, and weight loss, Eyes: Negative for injury, michela pain, redness, and discharge, ENT: Negative for injury, pain, and discharge, Neck: Negative for injury, pain, and swelling, Cardiovascular: Negative for chest pain, palpitations, and edema, Respiratory: Negative for shortness of breath, cough, wheezing, and pleuritic chest pain, Back: Negative for injury and pain, : Negative for injury, bleeding, discharge, and swelling, MS/Extremity: Negative for injury and deformity, Skin: Negative for injury, rash, and discoloration, Neuro: Negative for headache, weakness, numbness, tingling, and seizure, Psych: Negative for depression, anxiety, suicide ideation, homicidal ideation, and hallucinations, Allergy/Immunology: Negative for hives, rash, and allergies, Endocrine: Negative for neck swelling, polydipsia, polyuria, polyphagia, and marked weight changes, Hematologic/Lymphatic: Negative for swollen nodes, abnormal bleeding, and unusual bruising. 12:37 Abdomen/GI: Positive for abdominal pain, constipation. Exam: 12:37 Constitutional: This is a well developed, well nourished patient who is awake, alert, michela and in no acute distress. Head/Face: Normocephalic, atraumatic. Eyes: Pupils equal round and reactive to light, extra-ocular motions intact. Lids and lashes normal. Conjunctiva and sclera are non-icteric and not injected. Cornea within normal limits. Periorbital areas with no swelling, redness, or edema. ENT: Nares patent. No nasal discharge, no septal abnormalities noted. Tympanic membranes are normal and external auditory canals are clear. Oropharynx with no redness, swelling, or masses, exudates, or evidence of obstruction, uvula midline. Mucous membranes moist. Neck: Trachea midline, no thyromegaly or masses palpated, and no cervical lymphadenopathy. Supple, full range of motion without nuchal rigidity, or vertebral point tenderness. No Meningismus. Chest/axilla: Normal chest wall appearance and motion. Nontender with no deformity. No lesions are appreciated. Cardiovascular: Regular rate and rhythm with a normal S1 and S2. No gallops, murmurs, or rubs. Normal PMI, no JVD. No pulse deficits. Respiratory: Lungs have equal breath sounds bilaterally, clear to auscultation and percussion. No rales, rhonchi or wheezes noted. No increased work of breathing, no retractions or nasal flaring. Abdomen/GI: Soft, non-tender, with normal bowel sounds. No distension or tympany. No guarding or rebound. No evidence of tenderness throughout. Back: No spinal tenderness. No costovertebral tenderness. Full range of motion. Female : Normal external genitalia. Skin: Warm, dry with normal turgor. Normal color with no rashes, no lesions, and no evidence of cellulitis. MS/ Extremity: Pulses equal, no cyanosis. Neurovascular intact. Full, normal range of motion. Neuro: Awake and alert, GCS 15, oriented to person, place, time, and situation. Cranial nerves II-XII grossly intact. Motor strength 5/5 in all extremities. Sensory grossly intact. Cerebellar exam normal. Normal gait. Psych: Awake, alert, with orientation to person, place and time. Behavior, mood, and affect are within normal limits. Vital Signs: 12:06 BP 134 / 104; Pulse 98; Resp 18; Temp 97.9; Pulse Ox 98% on 3 lpm NC; Weight 61.23 kg; hb Height 5 ft. 4 in. (162.56 cm); Pain 4/10; 13:50 BP 159 / 90; Pulse 87; Resp 18; Pulse Ox 98% on R/A; mg2 14:50 BP 150 / 82; Pulse 81; Resp 18; Temp 98; Pulse Ox 100% on R/A; mg2 16:00 BP 149 / 80; Pulse 81; Resp 18; Temp 98; Pulse Ox 100% on R/A; mg2 12:06 Body Mass Index 23.17 (61.23 kg, 162.56 cm) hb MDM: 12:02 Patient medically screened. [facility] 12:39 Data reviewed: vital signs, nurses notes, lab test result(s), radiologic studies, CT [facility] scan. 11/21 12:37 Order name: Basic Metabolic Panel; Complete Time: 14:12 [facility] 11/21 12:37 Order name: CBC with Diff; Complete Time: 14:12 [facility] 11/21 12:37 Order name: Creatinine for Radiology; Complete Time: 14:12 [facility] 11/21 12:37 Order name: Hepatic Function; Complete Time: 14:12 [facility] 11/21 12:37 Order name: Lipase; Complete Time: 14:12 [facility] 11/21 14:13 Order name: Urine Culture [facility] 11/21 12:37 Order name: IV Saline Lock; Complete Time: 12:52 [facility] 11/21 14:28 Order name: Urine Dipstick--Ancillary (enter results); Complete Time: 15:21 11/21 15:05 Order name: Abdomen ; Complete Time: 15:37 [facility] 11/21 12:37 Order name: Labs collected and sent; Complete Time: 12:53 [facility] 11/21 14:13 Order name: Urine Dipstick-Ancillary (obtain specimen); Complete Time: 14:20 [facility] Administered Medications: 13:06 Drug: Lactulose 30 grams Volume: 45 ml; Route: PO; mg2 14:22 Follow up: Response: No adverse reaction mg2 13:06 Drug: Dulcolax Suppository 10 mg Route: MN; mg2 14:22 Follow up: Response: No adverse reaction mg2 13:08 Drug: NS 0.9% 1000 ml Route: IV; Rate: 1 bolus; Site: left antecubital; mg2 14:00 Follow up: Response: No adverse reaction; IV Status: Completed infusion; IV Intake: mg2 1000ml 16:08 Drug: Lactulose 30 grams Volume: 45 ml; Route: PO; mg2 16:08 Follow up: Response: No adverse reaction; Medication administered at discharge. mg2 Disposition: 11/21/19 15:38 Discharged to Home. Impression: Constipation. - Condition is Stable. - Discharge Instructions: Constipation, Adult, Constipation, Adult, [id number]. - Prescriptions for Lactulose 10 gram/15 mL Oral Solution - take 30 milliliter by ORAL route once daily; 300 milliliter. Dulcolax 10 mg Rectal Suppository - insert 1 suppository by RECTAL route every 12 hours As needed; 10 suppository. Miralax 17 gram/dose Oral - take 1 packet by ORAL route once daily dilute powder in 8 ounces of water or juice; 14 packet. - Medication Reconciliation Form, Thank You Letter, Antibiotic Education, Prescription Opioid Use form. - Follow up: Private Physician; When: 2 - 3 days; Reason: Recheck today's complaints, Continuance of care, Re-evaluation by your physician. Follow up: Marco A Alcazar MD; When: 2 - 3 days; Reason: Recheck today's complaints, Re-evaluation by your physician. - Problem is new. - Symptoms have improved. Signatures: Dispatcher [employer] Noble Aldana MD MD cha Baxter, Heather, RN RN Issac Horne RN RN mg2 Corrections: (The following items were deleted from the chart) 15:05 12:37 Abdomen Pelvis W [id number].[id number] ordered. EDMI EDMS 15:38 15:38 11/21/2019 15:38 Discharged to Home. Impression: Constipation. Condition is michela Stable. Discharge Instructions: Constipation, Adult, Constipation, Adult, [id number]. Prescriptions for Lactulose 10 gram/15 mL Oral Solution - take 30 milliliter by ORAL route once daily; 300 milliliter, Dulcolax 10 mg Rectal Suppository - insert 1 suppository by RECTAL route every 12 hours As needed; 10 suppository, Miralax 17 gram/dose Oral - take 1 packet by ORAL route once daily dilute powder in 8 ounces of water or juice; 14 packet. and Forms are Medication Reconciliation Form, Thank You Letter, Antibiotic Education, Prescription Opioid Use. Follow up: Private Physician; When: 2 - 3 days; Reason: Recheck today's complaints, Continuance of care, Re-evaluation by your physician. Problem is new. Symptoms have improved. [facility] 16:11 15:38 11/21/2019 15:38 Discharged to Home. Impression: Constipation. Condition is mg2 Stable. Discharge Instructions: Constipation, Adult, Constipation, Adult, [id number]. Prescriptions for Lactulose 10 gram/15 mL Oral Solution - take 30 milliliter by ORAL route once daily; 300 milliliter, Dulcolax 10 mg Rectal Suppository - insert 1 suppository by RECTAL route every 12 hours As needed; 10 suppository, Miralax 17 gram/dose Oral - take 1 packet by ORAL route once daily dilute powder in 8 ounces of water or juice; 14 packet. and Forms are Medication Reconciliation Form, Thank You Letter, Antibiotic Education, Prescription Opioid Use. Follow up: Private Physician; When: 2 - 3 days; Reason: Recheck today's complaints, Continuance of care, Re-evaluation by your physician. Follow up: Marco A Alcazar; When: 2 - 3 days; Reason: Recheck today's complaints, Re-evaluation by your physician. Problem is new. Symptoms have improved. [facility]
[2019-11-21 17:01] VITALS: TEMP 98; O2SAT 100
[2019-11-21 17:02] VITALS: BP 149/80
== END 2019-11-21 16:11 | disposition home or self-care (01) ==
LOC: ER 11:53
DX: K59.00 Constipation, unspecified (principal); E03.9 Hypothyroidism, unspecified; Z79.01 Long term (current) use of anticoagulants; Z79.82 Long term (current) use of aspirin; Z85.118 Personal history of other malignant neoplasm of bronchus and lung; Z85.850 Personal history of malignant neoplasm of thyroid; Z95.818 Presence of other cardiac implants and grafts
CPT/HCPCS: 87088; 85025; 87086; 80048; 36415; 80076; 81003; 83690; 74176; 96360; 99284; J7030